=== PATIENT | female | born 1955 | race Caucasian/White ===

== ENCOUNTER 2016-11-14 13:56 | Emergency (ER) | payer OTHER, MEDICARE ==
[~2016-11-14] VITALS: Ht 167.6 cm; Wt 68.0 kg
[~2016-11-14 13:56] MED LIST: ALBI1INJ SQ; ATOR1TAB18 PO; BUPR1TAB29 PO; BUTA1TAB PO; CALC0.25 PO; CYCL1TAB29 PO; DILT300C PO; FENO145T2 PO; HYDR-3583 PO; LEVO125T4 PO; LEVO50TA4 PO; LISI40TA PO; METF1000 PO; METH2.5T PO; MORP1TAB24 PO; PROM25TA5 PO; RANI150C PO
[2016-11-14 13:58] VITALS: BP 175/90; PULSE 86; RESP 17; TEMP 98.2; O2SAT 99
[2016-11-14] MEDS ORDERED: SODIUM CHLOR 0.9% 1000 ML INJ 1,000 ML IV SCH (17:17)
[2016-11-14] MEDS ORDERED: FAMOTIDINE 20 MG/2 ML VIAL IV PUSH ONE (17:30)
[2016-11-14] MEDS ORDERED: SODIUM CHLORIDE 0.9% FLUSH 5 ML FLUSH IVF PRN (17:30)
[2016-11-14] MEDS ORDERED: METOCLOPRAMIDE INJ 10 MG in SODIUM CHLORIDE 0.9% INJ 50 ML IV ONE (17:30)
--- NOTE | 2016-11-14 17:39 | PD ---
HPI Chief Complaint: General Weakness Time Seen by Provider: 17:06 Travel History International Travel<30 days: No Contact w/Intl Traveler<30days: No Traveled to known affect area: No History of Present Illness HPI Patient is a 61-year-old female who comes in complaining of nausea and vomiting for 2 weeks. She says she has not been able to eat or drink anything for the past 2 weeks and has lost 15 pounds. She is currently seeing a vascular doctors for a chronic ulcer to her right foot. She has not gone to see a physician for this vomiting issue. She denies any abdominal pain. She denies any chest pain or shortness of breath. She says she has had fevers at home, but she has not taken her temperature. Recently doctors have changed her pain medication, she is no longer taking morphine, but has a fentanyl patch. She is also currently on antibiotics for her foot. She says her last bowel movement was yesterday and it was normal. PFSH Past Medical History Hx Anticoagulant Therapy: No Arthritis: Yes (RHEUMATOID ARTHRITIS, OSTEOARTHRITIS) Autoimmune Disease: Yes (RA) Blood Disorders: No Anxiety: Yes Depression: Yes Cancer: Yes (COLON, THYROID) Cardiovascular Problems: Yes (HTN, CHOL) High Cholesterol: Yes Chemotherapy: No Congestive Heart Failure: Yes Cerebrovascular Accident: No Diabetes: Yes Patient Takes Glucophage: Yes Diminished Hearing: No Deep Vein Thrombosis: Yes (AND PE PER PT) Endocrine: Yes Fibromyalgia: Yes Gastrointestinal Disorders: Yes Genitourinary: No Hepatitis: No Hiatal Hernia: No Hypertension: Yes Immune Disorder: Yes Implanted Vascular Access Dvce: No Musculoskeletal: Yes ( CERVICAL DDD) Neurologic: No Psychiatric: Yes (ANXIETY) Reproductive: No Respiratory: Yes (COPD) Migraines: Yes Radiation Therapy: Yes Seizures: No Thyroid Disease: Yes Tetanus Vaccination: < 5 Years Menopausal: Yes : 1 Para: 1 Ovarian Cysts: Yes Tubal Ligation: Yes Past Surgical History Abdominal Surgery: Yes (SIGMOID COLECTOMY, LAP PATRICIA) AICD: No Cardiac Surgery: No Cholecystectomy: Yes Ear Surgery: No Endocrine Surgery: Yes (TOTAL THYROIDECTOMY) Eye Surgery: Yes (CLARICE. LASIK) Genitourinary Surgery: No Gynecologic Surgery: Yes (OVARIAN CYSTECTOMY. HYSTERECTOMY/BSO) Hysterectomy: Yes Joint Replacement: No Neurologic Surgery: No Oral Surgery: No Pacemaker: No Thoracic Surgery: No Other Surgery: Yes (THYROIDECTOMY WITH RADIATION, BREAST REDUCTION) Social History Alcohol Use: No Tobacco Use: No (QUIT) Substance Use: No Allergies-Medications (Allergen,Severity, Reaction): Coded Allergies: Adhesives (Verified Allergy, Severe, SKIN BREAKDOWN, 11/14/16) Codeine (Verified Allergy, Severe, RASH, 11/14/16) Latex (Verified Allergy, Severe, Rash, 11/14/16) Protonix (Verified Allergy, Severe, RASH, 11/14/16) Reported Meds & Prescriptions Reported Meds & Active Scripts Active Zofran Odt (Ondansetron Odt) 4 Mg Tab 4 Mg SL Q6HR PRN Reported Lisinopril 40 Mg Tab 40 Mg PO DAILY Metformin (Metformin HCl) 1,000 Mg Tab 1,000 Mg PO BIDPC With meals Hydrocodone-Acetaminophen 10-325 mg Tab 1 Tab PO TID PRN Ljdnyxghnb-Aocnyyrtxybic-Wsnbebxs 50-325-40 Mg Tab 1-2 Tab PO Q4HR PRN Do not exceed 6 tablets/day. Ranitidine (Ranitidine HCl) 150 Mg Cap 150 Mg PO BID Levothyroxine (Levothyroxine Sodium) 50 Mcg Tab 50 Mcg PO QOD Levothyroxine (Levothyroxine Sodium) 125 Mcg Tab 125 Mcg PO QOD Flexeril (Cyclobenzaprine HCl) 10 Mg Tab 10 Mg PO DAILY Calcitriol 0.25 Mcg Cap 0.25 Mcg PO BID Methotrexate 2.5 Mg Tab 20 Mg PO Q7D Diltiazem HCl ER (Diltiazem HCl Coated Beads) 300 Mg Cap 1 Tab PO DAILY Phenergan (Promethazine HCl) 25 Mg Tab 25 Mg PO Q6H PRN Fenofibrate 145 Mg Tab 145 Mg PO DAILY Bupropion HCl ER 12 HR (Bupropion HCl) 150 Mg Tab 150 Mg PO Q12HR Tanzeum 4-Pack Inj (Albiglutide) 30 Mg Pfpen 30 Mg SQ Q7D Atorvastatin (Atorvastatin Calcium) 80 Mg Tab 80 Mg PO HS Review of Systems Except as stated in HPI: all other systems reviewed are Neg General / Constitutional: No: Fever, Chills Eyes: No: Blurred Vision HENT: No: Headaches Cardiovascular: No: Chest Pain or Discomfort Respiratory: No: Shortness of Breath Gastrointestinal: Positive: Nausea, Vomiting, No: Diarrhea, Abdominal Pain, Constipation Genitourinary: No: Dysuria, Discharge Skin: No Rash, No Change in Pigmentation Neurologic: Positive: Weakness, No: Dizziness Physical Exam Narrative GENERAL: Awake and alert, in no acute distress. SKIN: Warm and dry. right foot with chronic ulcer, black in color, no active drainage or signs of cellulitis. HEAD: Atraumatic. Normocephalic. EYES: Pupils equal and round. No scleral icterus. Extraocular movements intact. ENT: Mucous membranes pink and moist. NECK: Trachea midline. No JVD. CARDIOVASCULAR: Regular rate and rhythm. No murmur appreciated. RESPIRATORY: No accessory muscle use. Clear to auscultation. Breath sounds equal bilaterally. GASTROINTESTINAL: Abdomen soft, non-tender, nondistended. No CVA tenderness. MUSCULOSKELETAL: No obvious deformities. No clubbing. No cyanosis. No edema. NEUROLOGICAL: Awake and alert. No obvious cranial nerve deficits. Motor grossly within normal limits. Normal speech. PSYCHIATRIC: Appropriate mood and affect; insight and judgment normal. Data Data Last Documented VS Vital Signs Date Time Temp Pulse Resp B/P Pulse Ox O2 Delivery O2 Flow Rate FiO2 11/14/16 21:59 78 18 170/78 97 11/14/16 18:00 98.1 Room Air Orders Basic Metabolic Panel (Bmp) (11/14/16 17:17) Complete Blood Count With Diff (11/14/16:17) Lipase (11/14/16 17:17) Urinalysis - C+S If Indicated (11/14/16 17:17) Ua Includes Microscopic (11/14/16 17:17) Ct Abd/Pel W Iv Contrast(Rout) (11/14/16 17:17) Iv Access Insert/Monitor (11/14/16 17:17) Ecg Monitoring (11/14/16 17:17) Oximetry (11/14/16 17:17) Sodium Chlor 0.9% 1000 Ml Inj (Ns 1000 M (11/14/16 17:17) Sodium Chloride 0.9% Flush (Ns Flush) (11/14/16 17:30) Electrocardiogram (11/14/16 17:17) Famotidine Inj (Pepcid Inj) (11/14/16 17:30) Hepatic Functional Panel (11/14/16 17:17) Metoclopramide Inj (Reglan Inj) (11/14/16 17:30) Iodixanol 320 Inj (Rad Ct) (Visipaque 32 (11/14/16 19:00) Sodium Chlor 0.9% 1000 Ml Inj (Ns 1000 M (11/14/16 20:00) Labs Laboratory Tests Test 11/14/16 11/14/16 17:30 19:55 White Blood Count 7.0 TH/MM3 Red Blood Count 4.07 MIL/MM3 Hemoglobin 12.4 GM/DL Hematocrit 36.9 % Mean Corpuscular Volume 90.7 FL Mean Corpuscular Hemoglobin 30.4 PG Mean Corpuscular Hemoglobin 33.5 % Concent Red Cell Distribution Width 15.3 % Platelet Count 402 TH/MM3 Mean Platelet Volume 8.1 FL Neutrophils (%) (Auto) 65.5 % Lymphocytes (%) (Auto) 22.3 % Monocytes (%) (Auto) 10.4 % Eosinophils (%) (Auto) 0.6 % Basophils (%) (Auto) 1.2 % Neutrophils # (Auto) 4.6 TH/MM3 Lymphocytes # (Auto) 1.6 TH/MM3 Monocytes # (Auto) 0.7 TH/MM3 Eosinophils # (Auto) 0.0 TH/MM3 Basophils # (Auto) 0.1 TH/MM3 CBC Comment DIFF FINAL Differential Comment Sodium Level 141 MEQ/L Potassium Level 3.9 MEQ/L Chloride Level 106 MEQ/L Carbon Dioxide Level 19.8 MEQ/L Anion Gap 15 MEQ/L Blood Urea Nitrogen 22 MG/DL Creatinine 1.36 MG/DL Estimat Glomerular Filtration 40 ML/MIN Rate Random Glucose 93 MG/DL Calcium Level 8.5 MG/DL Total Bilirubin 0.5 MG/DL Direct Bilirubin 0.2 MG/DL Indirect Bilirubin 0.3 MG/DL Aspartate Amino Transf 23 U/L (AST/SGOT) Alanine Aminotransferase 25 U/L (ALT/SGPT) Alkaline Phosphatase 26 U/L Total Protein 6.9 GM/DL Albumin 3.7 GM/DL Lipase 262 U/L Urine Color YELLOW Urine Turbidity CLEAR Urine pH 6.0 Urine Specific [place] GREATER THAN 1.050 Urine Protein 30 mg/dL Urine Glucose (UA) NEG mg/dL Urine Ketones 10 mg/dL Urine Occult Blood NEG Urine Nitrite NEG Urine Bilirubin NEG Urine Urobilinogen LESS THAN 2.0 MG/DL Urine Leukocyte Esterase TRACE Urine WBC 2 /hpf Urine Squamous Epithelial 3 /hpf Cells Microscopic Urinalysis Comment CULT NOT INDICATED MDM Medical Decision Making Medical Screen Exam Complete: Yes Emergency Medical Condition: Yes Medical Record Reviewed: Yes Interpretation(s) ECG shows sinus rhythm at 84, no ST elevation or depression, normal intervals. Differential Diagnosis Gastroparesis versus gastritis versus gastroenteritis versus obstruction versus colitis Narrative Course Patient is a 61-year-old female who comes in complaining of nausea and vomiting for 2 weeks. She says she has not been able to keep anything down. Exam shows abdomen to be soft and nontender. She has a chronic wound to her right foot that is being managed by vascular surgery. Labs sent show evidence of dehydration with a creatinine of 1.36. Patient given 2 L of IV fluids. Given Reglan as well as famotidine. Patient reports feeling much better. She is able to drink water without vomiting. She says she would like to go home. We will discharge home with prescription for by mouth Reglan. Patient is advised follow-up with her primary Doctor doctor. Advised to continue treatment with the vascular surgeon. Advised to return to the ED as needed for any worsening symptoms. Patient is comfortable with this plan at this time. Diagnosis Primary Impression: Nausea & vomiting Qualified Code: R11.2 - Non-intractable vomiting with nausea, unspecified vomiting type Patient Instructions: Acute Nausea and Vomiting (ED), General Instructions Additional Instructions: Follow up with your primary doctor. Take Zofran as needed for nausea/vomiting. Drink plenty of fluids. Force yourself to continue to take small sips of fluids throughout the day even if you are feeling nauseous. Return to the ED if your symptoms worsen. Scripts Ondansetron Odt (Zofran Odt)4 Mg Tab4 Mg SL Q6HR PRN (Nausea/Vomiting) #15 TAB Ref 0 Prov:Aliya Akhtar MD 11/14/16 Disposition: DISCHARGE HOME Condition: Stable Aliya Akhtar MD Nov 14, 2016 17:39
[2016-11-14 17:41] VITALS: RESP 20; O2SAT 98
[2016-11-14 17:46] LABS: AUTOMATED NEUTROPHIL # 4.6 TH/MM3 (1.8-7.7); BASOPHIL # 0.1 TH/MM3 (0-0.2); BASOPHIL % 1.2 % (0.0-2.0); EOSINOPHIL % 0.6 % (0.0-4.0); HEMATOCRIT 36.9 % (35.0-46.0); HEMO FLAGS DIFF FINAL; LYMPH % 22.3 % (9.0-44.0); LYMPHOCYTE # 1.6 TH/MM3 (1.0-4.8); MEAN CELL VOLUME 90.7 FL (80.0-100.0); MEAN CORPUSCULAR HEMOGLOBIN 30.4 PG (27.0-34.0); MEAN CORPUSCULAR HGB CONC 33.5 % (32.0-36.0); MONO % 10.4 % (0.0-8.0); NEUT % 65.5 % (16.0-70.0); PLATELET COUNT 402 TH/MM3 (150-450); RED BLOOD COUNT 4.07 MIL/MM3 (4.00-5.30); RED CELL DISTRIBUTION WIDTH 15.3 % (11.6-17.2)
[2016-11-14 18:00] VITALS: BP 147/70; PULSE 81; RESP 18; TEMP 98.1; O2SAT 98
[2016-11-14 18:04] LABS: BICARBONATE 19.8 MEQ/L (21.0-32.0); POTASSIUM 3.9 MEQ/L (3.5-5.1)
[2016-11-14 18:07] LABS: INDIRECT BILIRUBIN 0.3 MG/DL (0.0-0.8); TOTAL BILIRUBIN ADULT 0.5 MG/DL (0.2-1.0)
[2016-11-14] MEDS ORDERED: IODIXANOL 320 MG/ML 10 ML VIAL (for Rad CT) IV ONE (19:00)
--- NOTE | 2016-11-14 19:42 | RADRPT ---
EXAM DATE/TIME: 11/14/2016 18:54 [facility] COMPARISON: No previous studies available for comparison. INDICATIONS : Diffuse abdominal pain with nausea and vomiting for 2 weeks. IV CONTRAST: 50 cc Visipaque (iodixanol) IV ORAL CONTRAST: No oral contrast ingested. RADIATION DOSE: 9.96 CTDIvol (mGy) MEDICAL HISTORY : Hypertension. Deep venous thrombosis. Diabetes mellitus type 2.Colon and thyroid cancer SURGICAL HISTORY : Cholecystectomy. Tubal ligation.Hysterectomy.Colectomy; thyroidectomy. ENCOUNTER: Initial ACUITY: 2 weeks PAIN SCALE: 5/10 LOCATION: Diffuse abdomen/pelvis TECHNIQUE: Volumetric scanning of the abdomen and pelvis was performed. Using automated exposure control and ad justment of the mA and/or kV according to patient size, radiation dose was kept as low as reasonably achievable to obtain optimal diagnostic quality images. FINDINGS: Linear scarring lung bases. Stable low attenuation lesion near dome of liver compared with January 2016 , probably cyst or meningioma. Spleen, adrenals, kidneys and pancreas demonstrate no acute findings. Previous cholecystectomy. No bowel obstruction. No free air or free fluid. No adenopathy. No acute bony abnormalities. CONCLUSION: 1. No acute findings. Specifically no bowel obstruction. No free air or free fluid. Mild fatty liver. Cholecystectomy. Daniel Roca MD on November 14, 2016 at 19:34 Board Certified Radiologist. This report was verified electronically.
[2016-11-14] MEDS ORDERED: SODIUM CHLOR 0.9% 1000 ML INJ 1,000 ML IV ONE (20:00)
[2016-11-14 20:30] LABS: BLOOD, URINE NEG (NEG); COMMENT (UR) CULT NOT INDICATED; CULTURE IF INDICATED CULT NOT INDICATED; GLUCOSE,URINE NEG (NEG); KETONE, URINE 10 mg/dL (NEG); NITRITE,URINE NEG (NEG); SQUAMOUS EPITHELIAL CELL URINE 3 /hpf (0-5); URINE COLOR YELLOW (YELLW/STRAW)
[2016-11-14] MEDS ORDERED: ZOFR4TAB3 SL (21:14)
[2016-11-14 21:59] VITALS: BP 170/78
--- NOTE | 2016-11-15 13:10 | EKG ---
Date Performed: 11/14/2016 Time Performed: 17:44:11 PTAGE: 61 years EKG: Sinus rhythm POSSIBLE ANTERIOR MYOCARDIAL INFARCTION BORDERLINE ECG Compared to prior tracing no significant martinez marycruz PREVIOUS TRACING : 01/28/2016 13.30 DOCTOR: Oswaldo Lamas Interpretating Date/Time 11/15/2016 13:09:21
== END 2016-11-14 22:02 | disposition home or self-care (01) ==
LOC: NEPA 13:56
DX: R11.2 Nausea with vomiting, unspecified (principal); E86.0 Dehydration; M06.9 Rheumatoid arthritis, unspecified; I10 Essential (primary) hypertension; E78.00 Pure hypercholesterolemia, unspecified; I50.9 Heart failure, unspecified; E11.9 Type 2 diabetes mellitus without complications; L97.519 Non-pressure chronic ulcer of other part of right foot with unspecified severity; J44.9 Chronic obstructive pulmonary disease, unspecified; Z79.4 Long term (current) use of insulin
CPT/HCPCS: 74177; 80048; 80076; 81001; 83690; 85025; 93005; 96361; 96365; 96375; 99284; J2765; J7030; Q9967

== ENCOUNTER 2016-11-18 10:28 | Day surgery (SDC) | payer OTHER, MEDICARE ==
[~2016-11-18] VITALS: Ht 167.6 cm; Wt 72.5 kg
[~2016-11-18 10:28] MED LIST changes: -MORP1TAB24 PO; +ZOFR4TAB3 SL
[2016-11-18] MEDS ORDERED: SODIUM BICARBONATE 100 MEQ in D5W 1000 ML IV SCH (11:15)
[2016-11-18 11:37] LABS: AUTOMATED NEUTROPHIL # 2.6 TH/MM3 (1.8-7.7); BASOPHIL # 0.1 TH/MM3 (0-0.2); BASOPHIL % 2.7 % (0.0-2.0); EOSINOPHIL # 0.2 TH/MM3 (0-0.4); EOSINOPHIL % 3.6 % (0.0-4.0); HEMATOCRIT 33.7 % (35.0-46.0); HEMO FLAGS DIFF FINAL; LYMPH % 33.5 % (9.0-44.0); LYMPHOCYTE # 1.8 TH/MM3 (1.0-4.8); MEAN CELL VOLUME 90.9 FL (80.0-100.0); MEAN CORPUSCULAR HEMOGLOBIN 29.8 PG (27.0-34.0); MEAN CORPUSCULAR HGB CONC 32.7 % (32.0-36.0); MONO % 10.8 % (0.0-8.0); NEUT % 49.4 % (16.0-70.0); PLATELET COUNT 351 TH/MM3 (150-450); RED BLOOD COUNT 3.71 MIL/MM3 (4.00-5.30); RED CELL DISTRIBUTION WIDTH 15.6 % (11.6-17.2); WHITE BLOOD COUNT 5.3 TH/MM3 (4.0-11.0)
[2016-11-18 11:43] LABS: PROTHROMBIN TIME - PATIENT 11.5 SEC (9.8-11.6)
[2016-11-18] MEDS ORDERED: VITA10004 PO (11:45)
[2016-11-18] MEDS ORDERED: XANA1TAB2 PO (11:45)
[2016-11-18] MEDS ORDERED: AMBI10TA PO (11:45)
[2016-11-18] MEDS ORDERED: CIPR100T2 PO (11:45)
[2016-11-18] MEDS ORDERED: ZOLO25TA PO (11:45)
[2016-11-18] MEDS ORDERED: ERGO1CAP10 PO (11:45)
[2016-11-18] MEDS ORDERED: FENT50DI T-DERMAL (11:45)
[2016-11-18] MEDS ORDERED: VITA100021 SL (11:45)
[2016-11-18 11:47] VITALS: BP 153/77; PULSE 69; RESP 16; TEMP 97.9; O2SAT 97
[2016-11-18 11:50] LABS: BICARBONATE 23.4 MEQ/L (21.0-32.0)
[2016-11-18 12:12] LABS: CALCIUM-PROTEIN CORRECTED 7.9 MG/DL (8.5-10.1)
[2016-11-18] MEDS ORDERED: HEPARIN-NS/PF INJ 500 ML ONE (12:18)
[2016-11-18] MEDS ORDERED: MIDAZOLAM HCL 5 MG/5 ML VIAL ONE (12:19)
--- NOTE | 2016-11-18 12:47 | HHI.PR ---
Immediate Post Op Note Procedure Date: Nov 18, 2016 Pre Op Diagnosis: R LE wound, PAD Post Op Diagnosis: R LE wound Surgeon: Luisito Sheets [employer] Representative(s): none Procedure: Aortogram w/ R LE angiogram Findings: patent aorto-iliac artery patent fem-pop artery 3 vessel runoff with PT dominant to foot Complications: none 4F sheath (L CYLINDER DIE MACHINE OPERATOR) removed in OR Specimen(s) removed: none Estimated blood loss: trace Anesthesia: General Drains: None Patient to: PACU Date/Time of Procedure: SEE SURGICAL CARE RECORD Luisito Sheets MD Nov 18, 2016 12:47
[2016-11-18] MEDS ORDERED: IOHEXOL 350 MG/ML 50 ML BTL (for Cath Lab) OTHER ONE (14:30)
--- NOTE | 2016-11-19 16:58 | MP ---
cc: LUISITO SHEETS MD DATE OF SURGERY: 11/18/2016 PREOPERATIVE DIAGNOSIS Right lower extremity peripheral arterial occlusive disease and tissue loss. POSTOPERATIVE DIAGNOSIS Right lower extremity wound, normal perfusion. PROCEDURE Aortogram with right lower extremity angiogram. ATTENDING SURGEON Luisito Sheets ANESTHESIA Local with sedation. INDICATIONS Ms. Munroe is a 61-year-old female who has right lower extremity tissue loss and that is a punctate wound on the top of her right foot. I do not feel any pedal pulses and she is taken to the operating room for angiographic evaluation and treatment. DESCRIPTION OF PROCEDURE Informed consent was obtained from the patient. She was taken to the operating room and placed supine on the operating table. An appropriate timeout was taken to ensure the patient's identity, operative site and planned procedure. The administration of antibiotics was not necessary as this was a clean procedure without planned implantation of any foreign object. Everyone in the room agreed with the timeout and we proceeded. Her bilateral groins were prepped and draped. The left groin was anesthetized with 1% lidocaine. A 21-gauge micropuncture needle was used to access the left common femoral artery. This was exchanged using Seldinger technique for a micropuncture sheath through which a 0.035 Glidewire was introduced. The micropuncture sheath was exchanged for a 4-Danish sheath and a VCF catheter was placed over the wire into the sheath and aortogram and pelvic arteriograms obtained. The Glidewire was reintroduced and navigated down to the right common femoral artery. The VCF catheter was advanced over this and the right lower extremity arteriogram was obtained. The wire, catheter and sheath were removed and pressure was held for hemostasis. There were no complications. I was present and scrubbed for the entire procedure. INTERPRETATION OF IMAGES The patient has patent renal arteries, patent infrarenal aorta, common iliac arteries, hypogastric arteries and external iliac arteries bilaterally. The right common femoral artery and profunda are patent. The SFA is patent. The popliteal artery is patent. There is three-vessel runoff with the posterior tibial artery being the dominant runoff to the level of the foot. MD MIKAL TejadaF/JAME /1:34 PM /4:47 PM
== END 2016-11-18 19:13 | disposition home or self-care (01) ==
LOC: HDOC 10:28 → HDIC 10:29 → HDOC 19:13
PROVIDERS: ATTEND Surgery
DX: S91.301A Unspecified open wound, right foot, initial encounter (principal); I73.9 Peripheral vascular disease, unspecified
CPT/HCPCS: 36200; 36245; 75625; 75710; 80048; 84155; 85025; 85610; C1769; C1893; J1644; J2250; J3010; J7070; Q9967

== ENCOUNTER 2016-11-26 11:34 | Inpatient (IN) | payer OTHER, MEDICARE ==
[~2016-11-26] VITALS: Ht 167.6 cm; Wt 76.9 kg
[~2016-11-26 11:34] MED LIST changes: +AMBI10TA PO; -BUPR1TAB29 PO; +CIPR100T2 PO; +ERGO1CAP10 PO; +FENT50DI T-DERMAL; -LEVO50TA4 PO; -PROM25TA5 PO; +VITA100021 SL; +XANA1TAB2 PO; +ZOLO25TA PO
[2016-11-26 11:37] VITALS: BP 136/64; PULSE 82; RESP 20; TEMP 97.7; O2SAT 97
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
--- NOTE | 2016-11-26 12:44 | RADRPT ---
EXAM DATE/TIME: 11/26/2016 11:59 [facility] COMPARISON: CHEST PA & LAT, January 31, 2016, 7:49. INDICATIONS : Evaluate for pneumothorax, pneumonia or communicable disease. Pre-op, right foot surgery. MEDICAL HISTORY : Hypertension. Diabetes mellitus type II. Carcinoma, colon. SURGICAL HISTORY : None. ENCOUNTER: Initial ACUITY: 1 day PAIN SCORE: 0/10 LOCATION: Bilateral chest FINDINGS: A single view of the chest demonstrates the lungs to be symmetrically aerated without evidence of mas s, infiltrate or effusion. The cardiomediastinal contours are unremarkable. Osseous structures are intact with hypertrophic spurring primarily right-sided mid and lower thoracic spine.. CONCLUSION: No acute disease. Mykel Rowe MD on November 26, 2016 at 12:42 Board Certified Radiologist. This report was verified electronically.
[2016-11-26 12:47] LABS: AUTOMATED NEUTROPHIL # 3.8 TH/MM3 (1.8-7.7); BASOPHIL # 0.1 TH/MM3 (0-0.2); BASOPHIL % 1.5 % (0.0-2.0); EOSINOPHIL # 0.2 TH/MM3 (0-0.4); EOSINOPHIL % 2.9 % (0.0-4.0); HEMO FLAGS DIFF FINAL; LYMPH % 28.6 % (9.0-44.0); MEAN CELL VOLUME 91.6 FL (80.0-100.0); MEAN CORPUSCULAR HEMOGLOBIN 29.9 PG (27.0-34.0); MEAN CORPUSCULAR HGB CONC 32.6 % (32.0-36.0); MONO % 11.1 % (0.0-8.0); NEUT % 55.9 % (16.0-70.0); PLATELET COUNT 398 TH/MM3 (150-450); RED BLOOD COUNT 3.93 MIL/MM3 (4.00-5.30); RED CELL DISTRIBUTION WIDTH 16.2 % (11.6-17.2); WHITE BLOOD COUNT 6.9 TH/MM3 (4.0-11.0)
[2016-11-26 12:57] LABS: APTT (PATIENT) 23.6 SEC (24.3-30.1); PROTHROMBIN TIME - PATIENT 11.4 SEC (9.8-11.6)
[2016-11-26 13:09] LABS: BICARBONATE 24.9 MEQ/L (21.0-32.0)
[2016-11-26] MEDS ORDERED: VANCOMYCIN INJ 1,150 MG in SODIUM CHLOR 0.9% 250 ML INJ 250 ML IV ONE (13:45)
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
--- NOTE | 2016-11-26 14:22 | PD ---
Data Data Last Documented VS Vital Signs Date Time Temp Pulse Resp B/P Pulse Ox O2 Delivery O2 Flow Rate FiO2 11/26/16 12:28 80 18 97 Room Air 11/26/16 11:37 97.7 136/64 Orders Complete Blood Count With Diff (11/26/16 11:59) Basic Metabolic Panel (Bmp) (11/26/16 11:59) Coag Profile (11/26/16 11:59) Electrocardiogram (11/26/16 ) Chest, Single Ap (11/26/16 ) Wound Culture And Gram Stain (11/26/16 12:20) Vancomycin Inj (Vancomycin Inj) (11/26/16 13:45) Admit Order (Ed Use Only) (11/26/16 14:09) Labs Laboratory Tests Test 11/26/16 12:20 White Blood Count 6.9 TH/MM3 Red Blood Count 3.93 MIL/MM3 Hemoglobin 11.7 GM/DL Hematocrit 36.0 % Mean Corpuscular Volume 91.6 FL Mean Corpuscular Hemoglobin 29.9 PG Mean Corpuscular Hemoglobin 32.6 % Concent Red Cell Distribution Width 16.2 % Platelet Count 398 TH/MM3 Mean Platelet Volume 8.0 FL Neutrophils (%) (Auto) 55.9 % Lymphocytes (%) (Auto) 28.6 % Monocytes (%) (Auto) 11.1 % Eosinophils (%) (Auto) 2.9 % Basophils (%) (Auto) 1.5 % Neutrophils # (Auto) 3.8 TH/MM3 Lymphocytes # (Auto) 2.0 TH/MM3 Monocytes # (Auto) 0.8 TH/MM3 Eosinophils # (Auto) 0.2 TH/MM3 Basophils # (Auto) 0.1 TH/MM3 CBC Comment DIFF FINAL Differential Comment Prothrombin Time 11.4 SEC Prothromb Time International 1.0 RATIO Ratio Activated Partial 23.6 SEC Thromboplast Time Sodium Level 142 MEQ/L Potassium Level 4.0 MEQ/L Chloride Level 109 MEQ/L Carbon Dioxide Level 24.9 MEQ/L Anion Gap 8 MEQ/L Blood Urea Nitrogen 15 MG/DL Creatinine 1.53 MG/DL Estimat Glomerular Filtration 35 ML/MIN Rate Random Glucose 90 MG/DL Calcium Level 8.0 MG/DL MDM Supervised Visit with CALLUM: Yes Narrative Course The history, exam, and medical decision-making in the associated midlevel provider note were completed with my assistance. I reviewed and agree with the findings presented. I attest that I had a [id number] encounter with the patient on the same day, and personally performed and documented my assessment and findings in the medical record. *My assessment and Findings: This is a 61-year-old female who presents to the emergency department with a diabetic foot ulcer on her right foot, followed by Dr. Wisdom who was sent in due to concern for osteomyelitis on MRI. Patient has grown MRSA from wound cultures in the past. She was given a dose of vancomycin. She is nontoxic appearing. She will be admitted for surgical intervention tomorrow. Physician Communication Physician Communication Discussed with Dr. Cardona Diagnosis Primary Impression: Diabetic foot infection Admitting Information Admitting Physician Requests: Admit Condition: Stable Naheed Castillo MD Nov 26, 2016 14:22
[2016-11-26] MEDS ORDERED: Vancomycin Consult Pharmacy 1 EA OTHER SCH (14:30)
[2016-11-26] MEDS ORDERED: ACETAMINOPHEN/HYDROcodone 325 MG/5 MG TAB PO PRN (14:30)
[2016-11-26] MEDS ORDERED: ONDANSETRON HCL 4 MG/2 ML VIAL IV PUSH PRN (14:30)
[2016-11-26] MEDS ORDERED: SODIUM CHLOR 0.9% 1000 ML INJ 1,000 ML IV SCH (14:45)
[2016-11-26] MEDS ORDERED: DEXTROSE 50% IN WATER 50 ML VIAL(D50) IV PUSH PRN (15:00)
[2016-11-26] MEDS ORDERED: GLUCAGON 1 MG/ML VIAL OTHER PRN (15:00)
[2016-11-26] MEDS: INSULIN ASPART SUPPLEMENTAL SCALE SQ SCH ×2 (15:52→21:00)
[2016-11-26] MEDS ORDERED: ERGOCALCIFEROL (VIT D2) 50,000 UNIT CAP PO SCH (16:00)
[2016-11-26] MEDS ORDERED: fentaNYL 50 MCG/HR PATCH T-DERMAL SCH (16:00)
[2016-11-26 16:22] VITALS: BP 126/75; PULSE 84; RESP 18; O2SAT 96
[2016-11-26 19:03] VITALS: BP 122/62; PULSE 82; RESP 18; O2SAT 96
[2016-11-26] MEDS ORDERED: DEXT 5%-NACL 0.9% 1000 ML INJ 1,000 ML IV ONE (19:15)
[2016-11-26 19:40] VITALS: BP 114/64; PULSE 71; RESP 16; TEMP 98.4; O2SAT 96
[2016-11-26] MEDS: ATORVASTATIN 80 MG TAB PO SCH (21:16)
[2016-11-26] MEDS: FAMOTIDINE 20 MG TAB PO SCH (21:16)
[2016-11-26] MEDS: CALCITRIOL 0.25 MCG CAP PO SCH (21:16)
[2016-11-26] MEDS: ACETAMINOPHEN/HYDROcodone 325 MG/5 MG TAB PO PRN (21:17)
[2016-11-26] MEDS: ALPRAZolam 1 MG TAB PO PRN (21:38)
--- NOTE | 2016-11-26 23:14 | EKG ---
Date Performed: 11/26/2016 Time Performed: 12:42:53 PTAGE: 61 years EKG: Sinus rhythm NONSPECIFIC T-WAVE ABNORMALITY BORDERLINE ECG PREVIOUS TRACING : 11/14/2016 17.44 Compared to prior tracing no significant change DOCTOR: Dinh Olivares Interpretating Date/Time 11/26/2016 23:13:29
[2016-11-26 23:35] VITALS: BP 163/76; PULSE 69; RESP 16; TEMP 98; O2SAT 96
[2016-11-27] MEDS: ZOLPIDEM TARTRATE 10 MG TAB PO PRN ×2 (00:09→20:59)
[2016-11-27 05:13] VITALS: BP 168/81; PULSE 74; RESP 16; TEMP 97.4; O2SAT 100
[2016-11-27] MEDS: ACETAMINOPHEN/HYDROcodone 325 MG/5 MG TAB PO PRN ×4 (05:44→20:10)
[2016-11-27] MEDS: LEVOTHYROXINE SODIUM 125 MCG TAB PO SCH (05:44)
[2016-11-27] MEDS: INSULIN ASPART SUPPLEMENTAL SCALE SQ SCH ×4 (05:44→20:52)
[2016-11-27 08:00] VITALS: BP 167/82; PULSE 70; RESP 20; TEMP 97.9; O2SAT 98
[2016-11-27] MEDS ORDERED: VANCOMYCIN INJ 1,500 MG in SODIUM CHLORID 0.9% 500 ML INJ 500 ML IV SCH (08:00)
[2016-11-27] MEDS: FENOFIBRATE 145 MG TAB PO SCH (08:30)
[2016-11-27] MEDS: CALCITRIOL 0.25 MCG CAP PO SCH ×2 (08:31→20:54)
[2016-11-27] MEDS: DILTIAZEM-CD 300 MG CAP ER PO SCH (08:31)
[2016-11-27] MEDS: ALPRAZolam 1 MG TAB PO PRN ×2 (08:31→18:36)
[2016-11-27] MEDS: LISINOPRIL 20 MG TAB PO SCH (08:31)
[2016-11-27] MEDS: FAMOTIDINE 20 MG TAB PO SCH ×2 (08:31→20:55)
[2016-11-27] MEDS: CYCLOBENZAPRINE HCL 10 MG TAB PO SCH (08:31)
[2016-11-27] MEDS: SERTRALINE HCL 50 MG TAB PO SCH (08:36)
[2016-11-27 08:53] LABS: POTASSIUM 3.6 MEQ/L (3.5-5.1)
[2016-11-27] MEDS: REMOVE OLD DURAGESIC (FENTANYL) PATCH TD SCH (09:00)
--- NOTE | 2016-11-27 10:50 | HHI.PR ---
Subjective Remarks doing ok . no complaints Objective Vitals heart reg lung cta abd s/nt ext right dorsal foot ulceration. smaller ulceration on great toe/lat ankle Vital Signs Date Time Temp Pulse Resp B/P Pulse Ox O2 Delivery O2 Flow Rate FiO2 11/27/16 05:13 97.4 74 16 168/81 100 11/27/16 05:13 Room Air 11/26/16 23:35 Room Air 11/26/16 23:35 98.0 69 16 163/76 96 11/26/16 19:40 98.4 71 16 114/64 96 11/26/16 19:40 Room Air 11/26/16 19:03 82 18 122/62 96 Room Air 11/26/16 17:51 16 11/26/16 16:22 84 18 126/75 96 Room Air 11/26/16 12:28 80 18 97 Room Air 11/26/16 11:37 97.7 82 20 136/64 97 Room Air 11/26/16 11/26/16 11/27/16 15:00 23:00 07:00 Intake Total 977 ml 814 ml Output Total 250 ml 700 ml Balance 727 ml 114 ml Intake Oral 450 ml 240 ml IV Total 527 ml 574 ml Output Urine Total 250 ml 700 ml # Bowel Movements 0 0 Result Diagram: 11/26/16 1220 11/27/16 0658 A/P Problem List: (1) Diabetic foot ulcer Status: Acute Plan: right dorsal foot ulceration with recent necrosis and mrsa wound cx on 11/11 also recent mri foot suggesting bone involvement and 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 cont iv abx pain control consulted podiatry for planned surgery today consult ID. ivf and npo ssi. (2) DM (diabetes mellitus) Status: Chronic Plan: ssi (3) Hypothyroidism following radioiodine therapy Status: Chronic Plan: home meds (4) Asthma Status: Chronic Plan: home meds (5) Rheumatoid arthritis Status: Chronic Plan: home meds Washington Cardona MD Nov 27, 2016 10:50
[2016-11-27] MEDS ORDERED: DEXT 5%-NACL 0.9% 1000 ML INJ 1,000 ML IV ONE (11:00)
[2016-11-27] MEDS ORDERED: BUPIVACAINE HCL PF 0.5% 30 ML VIAL ONE (11:30)
[2016-11-27] MEDS ORDERED: LIDOCAINE HCL 2% 50 ML VIAL ONE (11:30)
[2016-11-27] MEDS ORDERED: MIDAZOLAM HCL 2 MG/2 ML VIAL ONE (11:35)
[2016-11-27] MEDS ORDERED: PROPOFOL 200 MG/20 ML AMP IV ONE (12:00)
[2016-11-27] MEDS ORDERED: ONDANSETRON HCL 4 MG/2 ML VIAL IV PUSH ONE (12:00)
[2016-11-27] MEDS ORDERED: DO NOT ADM ANY ANTICOAGULANT DRUGS XX PRN (12:30)
[2016-11-27] MEDS ORDERED: *morphine SULFATE 8 MG/ML PERIprocedure ONLY ONE ×2 (12:40→12:55)
[2016-11-27] MEDS ORDERED: NEOMYCIN/POLYMYXIN 1 ML G.U. IRRIGANT IR ONE (12:43)
[2016-11-27] MEDS: fentaNYL 50 MCG/HR PATCH T-DERMAL SCH (15:36)
[2016-11-27 16:00] VITALS: BP 107/55; PULSE 69; RESP 18; TEMP 98.6; O2SAT 96
--- NOTE | 2016-11-27 19:04 | HHI.PR ---
Dr Mendez Immediate Post Op Note Procedure Date: Nov 27, 2016 Pre Op Diagnosis: (1) Diabetic foot infection Post Op Diagnosis: (1) Diabetic foot ulcer Surgeon: Sara Mendez Job Placement Specialist(s): None Procedure: 1) Right foot Incision and Drainage 2) Right 3rd metatarsal bone biopsy 3) Right foot application of wound VAC. Findings: Appropriate bleeding with wound debridement. Complications: None Specimen(s) removed: 1) Right 3rd metatarsal bone biopsy. Estimated blood loss: Less than 5 cc Anesthesia: General Drains: None Tourniquet time (min at mmHg) Right ankle at 250 mmHg for 17 minutes. Patient to: PACU Patient Condition: Good Implant/Devices: Other (Wound VAC) Date/Time of Procedure: SEE SURGICAL CARE RECORD Sara Mendez DPM Nov 27, 2016 19:04
--- NOTE | 2016-11-27 19:38 | MP ---
cc: SARA MENDEZ DPM DATE OF SURGERY: 11/27/2016. PREOPERATIVE DIAGNOSIS: Right foot chronic infection. POSTOPERATIVE DIAGNOSIS: Right foot chronic infection. OPERATIVE PROCEDURE PERFORMED: 1. Right foot incision and drainage. 2. Right foot bone biopsy third metatarsal. 3. Right foot application of wound VAC. SURGEON: Sara Mendez DPM. ANESTHESIOLOGIST: Dr. Rojas. ANESTHESIA: General HEMOSTASIS: Right ankle tourniquet at 250 mmHg for 17 minutes. ESTIMATED BLOOD LOSS: Less than 5 cc. MATERIALS: Wound VAC. INJECTABLES: Postoperatively 10 cc of 0.5% Marcaine plain. BRIEF HISTORY: The patient is a 61-year-old female with a chronic right foot wound who had undergone workup as an outpatient including vascular and MRI imaging. The wound continued to worsen and then was admitted for additional surgical intervention. Risks, benefits, pros and cons were discussed. She freely consented to surgical intervention. No guarantees were given or implied. All questions were answered. DESCRIPTION OF THE PROCEDURE IN DETAIL: The patient was brought into operating room and placed on the operating room table in the supine position. General anesthesia was administered. A time-out was called and the correct patient identified, site identified, right third and fourth ray block was carried out using 20 cc of a 1:1 mixture of 2% lidocaine plain along with 0.5% Marcaine plain. The right foot was prepped, scrubbed and draped in the usual sterile aseptic manner. Attention was then directed to the right foot where excisional debridement of necrotic nonviable tissue was carried out with a 15 blade on the right dorsal foot. There was no purulent matter after debridement of necrotic tissue. The encompassing wound measured 3.5 x 3.0 cm. There was a depth of 0.3 cm. The extensor tendons of the third and fourth needed to be debrided due to the necrotic nonviable state and MRI findings of infection and cellulitis. After debriding nonviable necrotic tissue, the right third MP joint was exposed. There was no purulent drainage within the joint. A bone biopsy using a Jamshidi needle was taken of the right third metatarsal and part of it was sent for pathology and the other half was sent for culture. The incision was copiously irrigated and pulse lavaged with 3 liters of normal saline impregnated with . The wound was then dressed using a wound VAC to the right forefoot. The wound was covered, secured wound VAC demonstrated good suction at 125 mmHg constant on the right foot. The tourniquet was deflated after 17 minutes. The tourniquet was only inflated after sharp debridement of the wound. Healthy bleeding was noted within the surgical site. Bleeders were Bovied. The patient tolerated procedure. After completion, she will be transferred to the post-anesthesia care unit for a brief period of postoperative monitoring after which she will be transferred to the floor. She will be followed up appropriately while in-house. Sara Mendez DPM SR/OLINDA /7:09 PM /7:22 PM
[2016-11-27 20:00] VITALS: BP 118/55; PULSE 73; RESP 18; TEMP 98.2; O2SAT 96
[2016-11-27] MEDS: ATORVASTATIN 80 MG TAB PO SCH (20:54)
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
[2016-11-27 23:52] VITALS: BP 117/60; PULSE 76; RESP 18; TEMP 98.5; O2SAT 96
[2016-11-28] MEDS: ACETAMINOPHEN/HYDROcodone 325 MG/5 MG TAB PO PRN ×3 (00:18→08:54)
[2016-11-28] MEDS: VANCOMYCIN INJ 1,500 MG in SODIUM CHLORID 0.9% 500 ML INJ 500 ML IV SCH ×2 (02:00→20:22)
[2016-11-28 04:49] VITALS: BP 154/73; PULSE 66; RESP 18; TEMP 98; O2SAT 96
[2016-11-28] MEDS: LEVOTHYROXINE SODIUM 125 MCG TAB PO SCH (05:26)
[2016-11-28] MEDS: INSULIN ASPART SUPPLEMENTAL SCALE SQ SCH ×4 (05:26→20:19)
[2016-11-28] MEDS: ALPRAZolam 1 MG TAB PO PRN ×3 (05:54→23:08)
[2016-11-28] MEDS: DILTIAZEM-CD 300 MG CAP ER PO SCH (07:41)
[2016-11-28] MEDS: FENOFIBRATE 145 MG TAB PO SCH (07:42)
[2016-11-28] MEDS: CALCITRIOL 0.25 MCG CAP PO SCH ×2 (07:42→20:18)
[2016-11-28] MEDS: SERTRALINE HCL 50 MG TAB PO SCH (07:42)
[2016-11-28] MEDS: CYCLOBENZAPRINE HCL 10 MG TAB PO SCH (07:42)
[2016-11-28] MEDS: FAMOTIDINE 20 MG TAB PO SCH ×2 (07:42→20:18)
[2016-11-28] MEDS: LISINOPRIL 20 MG TAB PO SCH (07:42)
[2016-11-28 08:00] VITALS: BP 133/69; PULSE 75; RESP 20; TEMP 97.7; O2SAT 95
--- NOTE | 2016-11-28 08:48 | PD.POD ---
Subjective Podiatric Problems DOS 11/27/[address] Mendez s/p Right foot I and D, right 3rd metatarsal bone biopsy and wound VAC application. Some pain to the right foot. Doing well overall. Pain scale used: 0-10 numeric scale Pain score: 4 Past Med/Surg/Social History Social History Smoking Status: Former Smoker Objective Vital Signs Vital Signs Date Time Temp Pulse Resp B/P Pulse Ox O2 Delivery O2 Flow Rate FiO2 11/28/16 08:02 Room Air 11/28/16 08:00 97.7 75 20 133/69 95 11/28/16 04:49 98.0 66 18 154/73 96 11/27/16 23:52 98.5 76 18 117/60 96 11/27/16 20:05 Room Air 11/27/16 20:00 98.2 73 18 118/55 96 11/27/16 16:00 98.6 69 18 107/55 96 11/27/16 15:21 Room Air 11/27/16 13:00 65 14 135/75 95 Nasal Cannula 2 11/27/16 12:45 67 15 145/77 96 Nasal Cannula 2 11/27/16 12:33 99.5 76 16 142/73 97 Nasal Cannula 4 Coded Allergies: Adhesives (Verified Allergy, Severe, SKIN BREAKDOWN, 11/26/16) Codeine (Verified Allergy, Severe, RASH, 11/26/16) Latex (Verified Allergy, Severe, Rash, 11/26/16) Protonix (Verified Allergy, Severe, RASH, 11/26/16) Sulfa (Verified Allergy, Severe, 11/26/16) Other Results Laboratory Tests Test 11/26/16 11/27/16 12:20 06:58 White Blood Count 6.9 TH/MM3 Red Blood Count 3.93 MIL/MM3 Hemoglobin 11.7 GM/DL Hematocrit 36.0 % Mean Corpuscular Volume 91.6 FL Mean Corpuscular Hemoglobin 29.9 PG Mean Corpuscular Hemoglobin 32.6 % Concent Red Cell Distribution Width 16.2 % Platelet Count 398 TH/MM3 Mean Platelet Volume 8.0 FL Neutrophils (%) (Auto) 55.9 % Lymphocytes (%) (Auto) 28.6 % Monocytes (%) (Auto) 11.1 % Eosinophils (%) (Auto) 2.9 % Basophils (%) (Auto) 1.5 % Neutrophils # (Auto) 3.8 TH/MM3 Lymphocytes # (Auto) 2.0 TH/MM3 Monocytes # (Auto) 0.8 TH/MM3 Eosinophils # (Auto) 0.2 TH/MM3 Basophils # (Auto) 0.1 TH/MM3 CBC Comment DIFF FINAL Differential Comment Prothrombin Time 11.4 SEC Prothromb Time International 1.0 RATIO Ratio Activated Partial 23.6 SEC Thromboplast Time Sodium Level 144 MEQ/L Potassium Level 3.6 MEQ/L Chloride Level 110 MEQ/L Carbon Dioxide Level 27.0 MEQ/L Anion Gap 7 MEQ/L Blood Urea Nitrogen 14 MG/DL Creatinine 0.81 MG/DL Estimat Glomerular Filtration 72 ML/MIN Rate Random Glucose 100 MG/DL Calcium Level 7.6 MG/DL Physical Exam Details RLE NVS intact. No erythema to the digits. No pain with ROM at the foot and ankle. No calf pain. Intact dressing and no strikethrough. Assessment & Plan Diagnosis: (1) Diabetic foot ulcer Status: Chronic A/P DOS 11/27/[address] Mendez s/p Right foot I and D, right 3rd metatarsal bone biopsy and wound VAC application. Patient will need IV abx x 2-6 weeks. Pending bone biopsy. Patient will need HHC and wound vac changes M/W/F. No further planed surgical intervention. Consult ID for PICC Discharge Planning OK to d/c with PICC and HHC with wound VAC. Consult for Case Management placed. Sara Mendez DPM Nov 28, 2016 08:47
--- NOTE | 2016-11-28 10:17 | HHI.PR ---
Subjective Remarks asking to have latex allergy removed so she can have tomatoes. she says really doesn't have latex allergy wants more pain meds Objective Vitals heart reg lung cta abd s/nt ext right foot wound vac/bandaged. Vital Signs Date Time Temp Pulse Resp B/P Pulse Ox O2 Delivery O2 Flow Rate FiO2 11/28/16 08:02 Room Air 11/28/16 08:00 97.7 75 20 133/69 95 11/28/16 04:49 98.0 66 18 154/73 96 11/27/16 23:52 98.5 76 18 117/60 96 11/27/16 20:05 Room Air 11/27/16 20:00 98.2 73 18 118/55 96 11/27/16 16:00 98.6 69 18 107/55 96 11/27/16 15:21 Room Air 11/27/16 13:00 65 14 135/75 95 Nasal Cannula 2 11/27/16 12:45 67 15 145/77 96 Nasal Cannula 2 11/27/16 12:33 99.5 76 16 142/73 97 Nasal Cannula 4 11/27/16 11/27/16 11/28/16 15:00 23:00 07:00 Intake Total 880 ml 110 ml 1108 ml Output Total 1000 ml Balance -120 ml 110 ml 1108 ml Intake Oral 480 ml 600 ml IV Total 110 ml 508 ml Other 400 ml Output Urine Total 1000 ml Estimated Blood Loss 0 ml # Voids 1 0 # Bowel Movements 1 0 Result Diagram: 11/26/16 1220 11/27/16 0658 A/P Problem List: (1) Diabetic foot ulcer Status: Chronic Plan: right dorsal foot ulceration with recent necrosis and mrsa wound cx on 11/11 also recent mri foot suggesting bone involvement and 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 s/p wound debridement of necrotic tissue. bone bx and wound vac 11/27 cont iv abx f/u bx and cx pain control ssi resumed diet dvt prophylaxis PT (2) DM (diabetes mellitus) Status: Chronic Plan: ssi (3) Hypothyroidism following radioiodine therapy Status: Chronic Plan: home meds (4) Asthma Status: Chronic Plan: home meds (5) Rheumatoid arthritis Status: Chronic Plan: home meds Washington Cardona MD Nov 28, 2016 10:17
[2016-11-28 10:30] VITALS: O2SAT 93
[2016-11-28] MEDS: ENOXAPARIN SODIUM 40 MG/0.4 ML SYRINGE SQ SCH (11:27)
[2016-11-28 12:00] VITALS: BP 124/64; PULSE 71; RESP 20; TEMP 98.1; O2SAT 96
[2016-11-28 16:00] VITALS: BP 122/60; PULSE 66; RESP 18; TEMP 97.7; O2SAT 97
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
[2016-11-28 20:00] VITALS: BP 137/65; PULSE 74; RESP 16; TEMP 98.6; O2SAT 96
[2016-11-28] MEDS: ATORVASTATIN 80 MG TAB PO SCH (20:18)
[2016-11-29] VITALS (7 sets, daily range): BP systolic 130–150; BP diastolic 62–75; PULSE 70–75; RESP 16–20; TEMP 97.7–98.2; O2SAT 93–99
[2016-11-29] MEDS: LEVOTHYROXINE SODIUM 125 MCG TAB PO SCH (05:51)
[2016-11-29] MEDS: INSULIN ASPART SUPPLEMENTAL SCALE SQ SCH ×4 (06:26→20:20)
[2016-11-29] MEDS: ALPRAZolam 1 MG TAB PO PRN ×2 (07:42→18:02)
--- NOTE | 2016-11-29 09:12 | HHI.PR ---
Subjective Remarks Pt demanding we remove the latex allergy from list. she insists this is wrong and she has no latex allergy....The kitchen has refused to give her tomatoes/ketchup and so this is what makes her upset and asking for removal from the allergy list. Objective Vitals heart reg lung cta abd s/nt ext right foot bandaged/wound vac. Vital Signs Date Time Temp Pulse Resp B/P Pulse Ox O2 Delivery O2 Flow Rate FiO2 11/29/16 08:00 97.7 70 20 140/68 99 11/29/16 05:40 16 11/29/16 04:00 98.1 74 20 141/75 99 11/29/16 00:00 98.2 71 16 150/70 97 11/28/16 23:10 Room Air 11/28/16 20:00 98.6 74 16 137/65 96 11/28/16 16:00 97.7 66 18 122/60 97 11/28/16 12:00 98.1 71 20 124/64 96 11/28/16 10:30 93 21 11/28/16 11/28/16 11/29/16 15:00 23:00 07:00 Intake Total 960 ml 480 ml 480 ml Output Total 850 ml 350 ml 1500 ml Balance 110 ml 130 ml -1020 ml Intake Oral 960 ml 480 ml 480 ml Output Urine Total 850 ml 350 ml 1500 ml # Bowel Movements 1 1 Result Diagram: 11/26/16 1220 11/27/16 0658 A/P Problem List: (1) Diabetic foot ulcer Status: Chronic Plan: right dorsal foot ulceration with recent necrosis and mrsa wound cx on 11/11 also recent mri foot suggesting bone involvement and osteo concerns of 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 s/p wound debridement of necrotic tissue. bone bx and wound vac 11/27 cont iv abx f/u bx and cx.discussed with ID. pain control ssi resumed diet dvt prophylaxis PT (2) DM (diabetes mellitus) Status: Chronic Plan: ssi (3) Hypothyroidism following radioiodine therapy Status: Chronic Plan: home meds (4) Asthma Status: Chronic Plan: home meds (5) Rheumatoid arthritis Status: Chronic Plan: home meds Washington Cardona MD Nov 29, 2016 09:12
[2016-11-29] MEDS: LISINOPRIL 20 MG TAB PO SCH (09:27)
[2016-11-29] MEDS: CYCLOBENZAPRINE HCL 10 MG TAB PO SCH (09:27)
[2016-11-29] MEDS: SERTRALINE HCL 50 MG TAB PO SCH (09:27)
[2016-11-29] MEDS: FENOFIBRATE 145 MG TAB PO SCH (09:27)
[2016-11-29] MEDS: DILTIAZEM-CD 300 MG CAP ER PO SCH (09:27)
[2016-11-29] MEDS: CALCITRIOL 0.25 MCG CAP PO SCH ×2 (09:27→20:17)
[2016-11-29] MEDS: FAMOTIDINE 20 MG TAB PO SCH ×2 (09:28→20:17)
--- NOTE | 2016-11-29 10:22 | PD.POD ---
Subjective Podiatric Problems DOS 11/27/[address] Mendez s/p Right foot I and D, right 3rd metatarsal bone biopsy and wound VAC application. Some pain to the right foot. Doing well overall. Pain scale used: 0-10 numeric scale Pain score: 2 Past Med/Surg/Social History Social History Smoking Status: Former Smoker Objective Vital Signs Vital Signs Date Time Temp Pulse Resp B/P Pulse Ox O2 Delivery O2 Flow Rate FiO2 11/29/16 08:00 97.7 70 20 140/68 99 11/29/16 05:40 16 11/29/16 04:00 98.1 74 20 141/75 99 11/29/16 00:00 98.2 71 16 150/70 97 11/28/16 23:10 Room Air 11/28/16 20:00 98.6 74 16 137/65 96 11/28/16 16:00 97.7 66 18 122/60 97 11/28/16 12:00 98.1 71 20 124/64 96 11/28/16 10:30 93 21 Coded Allergies: Adhesives (Verified Allergy, Severe, SKIN BREAKDOWN, 11/26/16) Codeine (Verified Allergy, Severe, RASH, 11/26/16) Protonix (Verified Allergy, Severe, RASH, 11/26/16) Sulfa (Verified Allergy, Severe, 11/26/16) Other Results Microbiology Date/Time Procedure Status Source Growth 11/27/16 13:50 Gram Stain - Final Resulted Wound Toe 11/27/16 13:50 Wound Culture - Preliminary Resulted Wound Toe NO GROWTH IN 24 HOURS. 11/27/16 13:50 Fungal Smear - Final Resulted Wound Toe NO FUNGAL ELEMENTS SEEN. 11/27/16 13:50 Fungal Culture Resulted Wound Toe Pending 11/27/16 13:50 Acid Fast Stain - Final Resulted Wound Toe NO ACID FAST BACILLI SEEN 11/27/16 13:50 Mycobacterial Culture Resulted Wound Toe Pending Physical Exam Details RLE Intact wound vac. ROM and NVS unchanged. Assessment & Plan Diagnosis: (1) Diabetic foot ulcer Status: Chronic A/P DOS 11/27/[address] Andrea daniels/p Right foot I and D, right 3rd metatarsal bone biopsy and wound VAC application. Patient will need IV abx x 2-6 weeks. Pending bone biopsy. Consult placed with Case Managment for HHC and wound vac changes M/W/F. No further planed surgical intervention. Dr Pink will begin coverage 12/01/16 Discharge Planning OK to d/c with PICC and HHC with wound VAC. Consult for Case Management placed. Sara Mendez DPM Nov 29, 2016 10:22
[2016-11-29] MEDS: ENOXAPARIN SODIUM 40 MG/0.4 ML SYRINGE SQ SCH (13:29)
[2016-11-29] MEDS ORDERED: PHARMACY ORDERED LAB XX ONE (13:45)
[2016-11-29] MEDS ORDERED: REMOVE OLD DURAGESIC (FENTANYL) PATCH TD SCH (14:45)
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
[2016-11-29] MEDS ORDERED: PILL SPLITTER OTHER PRN (18:30)
[2016-11-29] MEDS: SODIUM CHLOR 0.9% IV SCH (19:03)
[2016-11-29] MEDS: VORICONAZOLE IV SCH (19:03)
[2016-11-29] MEDS ORDERED: VANCOMYCIN INJ 1,500 MG in SODIUM CHLORID 0.9% 500 ML INJ 500 ML IV SCH (20:00)
[2016-11-29] MEDS: ATORVASTATIN 80 MG TAB PO SCH (20:17)
[2016-11-29] MEDS: ZOLPIDEM TARTRATE 10 MG TAB PO PRN (21:22)
[2016-11-30] VITALS (7 sets, daily range): BP systolic 103–139; BP diastolic 55–87; PULSE 62–77; RESP 17–20; TEMP 97.8–98.2; O2SAT 95–98
[2016-11-30] MEDS: SODIUM CHLOR 0.9% IV SCH ×2 (05:19→18:35)
[2016-11-30] MEDS: VORICONAZOLE IV SCH ×2 (05:19→18:35)
[2016-11-30] MEDS: LEVOTHYROXINE SODIUM 125 MCG TAB PO SCH (05:19)
[2016-11-30] MEDS: INSULIN ASPART SUPPLEMENTAL SCALE SQ SCH ×4 (05:21→21:00)
[2016-11-30] MEDS: FENOFIBRATE 145 MG TAB PO SCH (08:06)
[2016-11-30] MEDS: DILTIAZEM-CD 300 MG CAP ER PO SCH (08:07)
[2016-11-30] MEDS: FAMOTIDINE 20 MG TAB PO SCH ×2 (08:07→21:00)
[2016-11-30] MEDS: LISINOPRIL 20 MG TAB PO SCH (08:07)
[2016-11-30] MEDS: CYCLOBENZAPRINE HCL 10 MG TAB PO SCH (08:07)
[2016-11-30] MEDS: SERTRALINE HCL 50 MG TAB PO SCH (08:07)
[2016-11-30] MEDS: CALCITRIOL 0.25 MCG CAP PO SCH ×2 (08:07→21:00)
[2016-11-30] MEDS: fentaNYL 50 MCG/HR PATCH T-DERMAL SCH (08:08)
[2016-11-30 09:32] LABS: ALKALINE PHOSPHATASE 21 U/L (45-117); ALT (GPT) 18 U/L (10-53); ANION GAP 7 MEQ/L (5-15); AST (GOT) 17 U/L (15-37); BICARBONATE 27.8 MEQ/L (21.0-32.0); BLOOD UREA NITROGEN 13 MG/DL (7-18); CHLORIDE 111 MEQ/L (98-107); GLOMERULAR FILTRATION RATE 74 ML/MIN (>89); POTASSIUM 3.7 MEQ/L (3.5-5.1); SODIUM (NA) 146 MEQ/L (136-145); TOTAL BILIRUBIN ADULT 0.2 MG/DL (0.2-1.0)
[2016-11-30] MEDS: REMOVE OLD DURAGESIC (FENTANYL) PATCH TD SCH (10:20)
[2016-11-30] MEDS: ALPRAZolam 1 MG TAB PO PRN ×2 (10:35→18:44)
[2016-11-30] MEDS: ENOXAPARIN SODIUM 40 MG/0.4 ML SYRINGE SQ SCH (10:35)
--- NOTE | 2016-11-30 11:00 | HHI.PR ---
Subjective Remarks pt doing well. Objective Vitals heart reg lung cta abd s/nt ext right foot bandaged. wound vac Vital Signs Date Time Temp Pulse Resp B/P Pulse Ox O2 Delivery O2 Flow Rate FiO2 11/30/16 10:27 97 21 11/30/16 08:00 97.8 65 20 139/65 98 11/30/16 04:00 98.0 76 17 135/87 95 11/30/16 00:00 97.8 77 18 136/61 95 11/29/16 20:15 Room Air 11/29/16 20:00 98.2 74 17 134/63 93 11/29/16 16:00 97.9 70 18 142/62 97 11/29/16 12:00 98.2 75 18 130/63 94 11/29/16 11/29/16 11/30/16 15:00 23:00 07:00 Intake Total 482 ml 720 ml 180 ml Output Total 200 ml 700 ml Balance 482 ml 520 ml -520 ml Intake Oral 480 ml 720 ml 180 ml IV Total 2 ml Output Urine Total 200 ml 700 ml # Voids 3 # Bowel Movements 0 Result Diagram: 11/26/16 1220 11/30/16 0836 A/P Problem List: (1) Diabetic foot ulcer Status: Chronic Plan: right dorsal foot ulceration with recent necrosis and mrsa wound cx on 11/11 also recent mri foot suggesting bone involvement and osteo concerns of 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 s/p wound debridement of necrotic tissue. bone bx and wound vac 11/27 cont iv abx f/u cx results. some fungal/mold growing and pt currently on vanco and voriconizole per ID pain control ssi resumed diet dvt prophylaxis PT (2) DM (diabetes mellitus) Status: Chronic Plan: ssi (3) Hypothyroidism following radioiodine therapy Status: Chronic Plan: home meds (4) Asthma Status: Chronic Plan: home meds (5) Rheumatoid arthritis Status: Chronic Plan: home meds Washington Cardona MD Nov 30, 2016 11:00
[2016-11-30] MEDS ORDERED: PHARMACY ORDERED LAB XX ONE (13:45)
[2016-11-30] MEDS: ATORVASTATIN 80 MG TAB PO SCH (21:00)
[2016-11-30] MEDS: ZOLPIDEM TARTRATE 10 MG TAB PO PRN (23:03)
[2016-12-01] VITALS (8 sets, daily range): BP systolic 117–141; BP diastolic 56–69; PULSE 67–76; RESP 17–22; TEMP 97.5–98.6; O2SAT 94–100
[2016-12-01] MEDS: LEVOTHYROXINE SODIUM 125 MCG TAB PO SCH (05:18)
[2016-12-01] MEDS: VORICONAZOLE IV SCH ×2 (05:19→18:06)
[2016-12-01] MEDS: SODIUM CHLOR 0.9% IV SCH ×2 (05:19→18:06)
[2016-12-01] MEDS: INSULIN ASPART SUPPLEMENTAL SCALE SQ SCH ×4 (05:22→20:35)
[2016-12-01] MEDS: ALPRAZolam 1 MG TAB PO PRN ×2 (06:19→16:42)
[2016-12-01] MEDS: FAMOTIDINE 20 MG TAB PO SCH ×2 (09:09→21:00)
[2016-12-01] MEDS: FENOFIBRATE 145 MG TAB PO SCH (09:09)
[2016-12-01] MEDS: DILTIAZEM-CD 300 MG CAP ER PO SCH (09:09)
[2016-12-01] MEDS: SERTRALINE HCL 50 MG TAB PO SCH (09:09)
[2016-12-01] MEDS: CALCITRIOL 0.25 MCG CAP PO SCH ×2 (09:09→20:59)
[2016-12-01] MEDS: LISINOPRIL 20 MG TAB PO SCH (09:09)
[2016-12-01] MEDS: CYCLOBENZAPRINE HCL 10 MG TAB PO SCH (09:09)
[2016-12-01] MEDS: ENOXAPARIN SODIUM 40 MG/0.4 ML SYRINGE SQ SCH (11:28)
[2016-12-01] MEDS ORDERED: VANCOMYCIN INJ 1,250 MG in SODIUM CHLOR 0.9% 250 ML INJ 250 ML IV ONE (13:00)
--- NOTE | 2016-12-01 17:15 | HHI.PR ---
Subjective Remarks No new complaints. Objective Vitals Vital Signs Date Time Temp Pulse Resp B/P Pulse Ox O2 Delivery O2 Flow Rate FiO2 12/01/16 12:00 98.6 68 20 127/61 95 12/01/16 09:00 Room Air 12/01/16 08:30 98 21 12/01/16 08:00 97.5 74 22 141/69 100 12/01/16 04:00 98.1 76 18 117/60 98 12/01/16 00:00 98.3 69 17 118/56 99 11/30/16 21:06 Room Air 11/30/16 20:00 98.2 71 17 120/56 97 11/30/16 11/30/16 12/01/16 15:00 23:00 07:00 Intake Total 480 ml 320 ml 320 ml Balance 480 ml 320 ml 320 ml Intake Oral 480 ml 320 ml 320 ml # Voids 3 2 3 # Bowel Movements 1 Result Diagram: 11/30/16 0836 Imaging Last Impressions Chest X-Ray 11/26/16 0000 Signed Impressions: Service Date/Time: Saturday, November 26, 2016 11:59 - CONCLUSION: No acute disease. Mykel Rowe MD Objective Remarks GENERAL: This is a well-nourished, well-developed patient, in no apparent distress. CARDIOVASCULAR: Regular rate and rhythm without murmurs, gallops, or rubs. RESPIRATORY: Clear to auscultation. Breath sounds equal bilaterally. No wheezes , rales, or rhonchi. GASTROINTESTINAL: Abdomen soft, non-tender, nondistended. Normal active bowel sounds MUSCULOSKELETAL: right foot bandaged NEURO: Alert & Oriented x4 to person, place, time, situation. Moves all ext x4 A/P Problem List: (1) Diabetic foot ulcer Status: Chronic Plan: right dorsal foot ulceration with recent necrosis and mrsa wound cx on 11/11 also recent mri foot suggesting bone involvement and osteo concerns of 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 s/p wound debridement of necrotic tissue. bone bx and wound vac 11/27 wound cx: mold species - outpt wound cx: MRSA - case d/w Dr. Lutz (12/01/16). will make antibiotic recommendations for discharge - Pt will need to f/u with ID, to review fungus results which may take another 4 -5 days before final results available - vancom voriconizole - anticipate discharge to SNF in 1-2 days pain control ssi resumed diet dvt prophylaxis PT (2) DM (diabetes mellitus) Status: Chronic Plan: ssi (3) Hypothyroidism following radioiodine therapy Status: Chronic Plan: home meds (4) Asthma Status: Chronic Plan: home meds (5) Rheumatoid arthritis Status: Chronic Plan: home meds Problem Qualifiers (1) DM (diabetes mellitus): Qualified Code: E11.621 - Type 2 diabetes mellitus with foot ulcer, without long-term current use of insulin Amadou Ballesteros DO Dec 01, 2016 17:15
[2016-12-01] MEDS: 1/2 NS + KCL 20 MEQ INJ 1,000 ML IV SCH (18:18)
[2016-12-01] MEDS: ATORVASTATIN 80 MG TAB PO SCH (21:00)
[2016-12-01] MEDS: ZOLPIDEM TARTRATE 10 MG TAB PO PRN (21:02)
[2016-12-02] VITALS (8 sets, daily range): BP systolic 111–137; BP diastolic 53–65; PULSE 67–80; RESP 16–20; TEMP 98–98.5; O2SAT 94–99
[2016-12-02] MEDS: ALPRAZolam 1 MG TAB PO PRN ×3 (01:00→18:43)
[2016-12-02] MEDS: SODIUM CHLOR 0.9% IV SCH ×2 (05:26→16:21)
[2016-12-02] MEDS: VORICONAZOLE IV SCH ×2 (05:26→16:21)
[2016-12-02] MEDS: 1/2 NS + KCL 20 MEQ INJ 1,000 ML IV SCH (05:27)
[2016-12-02] MEDS: LEVOTHYROXINE SODIUM 125 MCG TAB PO SCH (05:34)
[2016-12-02] MEDS: INSULIN ASPART SUPPLEMENTAL SCALE SQ SCH ×4 (07:00→20:49)
[2016-12-02] MEDS: SERTRALINE HCL 50 MG TAB PO SCH (08:23)
[2016-12-02] MEDS: CYCLOBENZAPRINE HCL 10 MG TAB PO SCH (08:23)
[2016-12-02] MEDS: DILTIAZEM-CD 300 MG CAP ER PO SCH (08:23)
[2016-12-02] MEDS: LISINOPRIL 20 MG TAB PO SCH (08:23)
[2016-12-02] MEDS: FAMOTIDINE 20 MG TAB PO SCH ×2 (08:23→20:49)
[2016-12-02] MEDS: CALCITRIOL 0.25 MCG CAP PO SCH ×2 (08:23→20:49)
[2016-12-02] MEDS: FENOFIBRATE 145 MG TAB PO SCH (08:25)
[2016-12-02 09:56] LABS: BICARBONATE 26.8 MEQ/L (21.0-32.0); MAGNESIUM 1.8 MG/DL (1.5-2.5)
[2016-12-02] MEDS: ENOXAPARIN SODIUM 40 MG/0.4 ML SYRINGE SQ SCH (11:00)
[2016-12-02] MEDS: VANCOMYCIN INJ 1,250 MG in SODIUM CHLOR 0.9% 250 ML INJ 250 ML IV SCH (12:09)
[2016-12-02] MEDS ORDERED: XANA1TAB2 PO (15:50)
[2016-12-02] MEDS ORDERED: FENT50DI T-DERMAL (15:50)
[2016-12-02] MEDS ORDERED: VORI200T6 PO (15:50)
[2016-12-02] MEDS ORDERED: AMBI10TA PO (15:50)
[2016-12-02] MEDS ORDERED: NOVOLOGSS SQ (16:00)
[2016-12-02] MEDS ORDERED: OXYC-395 PO (16:00)
[2016-12-02 16:10] LABS: TOTAL BILIRUBIN ADULT 0.1 MG/DL (0.2-1.0)
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
--- NOTE | 2016-12-02 16:11 | HHI.DCPOC ---
Discharge Care Plan Diagnosis: (1) Diabetic foot ulcer (2) DM (diabetes mellitus) Goals to Promote Your Health * To prevent worsening of your condition and complications * To maintain your health at the optimal level Directions to Meet Your Goals Take your medications as prescribed Follow your dietary instruction Follow activity as directed Keep your appointments as scheduled Take your immunizations and boosters as scheduled If your symptoms worsen call your PCP, if no PCP go to Urgent Care Center or Emergency Room Smoking is Dangerous to Your Health. Avoid second hand smoke Call the 24-hour hour crisis hotline for domestic abuse at Amadou Ballesteros DO Dec 02, 2016 16:11
[2016-12-02] MEDS: ATORVASTATIN 80 MG TAB PO SCH (20:49)
[2016-12-03 04:44] VITALS: BP 140/68; PULSE 68; RESP 16; TEMP 98.2; O2SAT 97
[2016-12-03] MEDS: VORICONAZOLE IV SCH (05:13)
[2016-12-03] MEDS: LEVOTHYROXINE SODIUM 125 MCG TAB PO SCH (05:13)
[2016-12-03] MEDS: SODIUM CHLOR 0.9% IV SCH (05:13)
[2016-12-03] MEDS: ALPRAZolam 1 MG TAB PO PRN ×2 (05:13→13:54)
[2016-12-03] MEDS: VANCOMYCIN INJ 1,250 MG in SODIUM CHLOR 0.9% 250 ML INJ 250 ML IV SCH (06:03)
[2016-12-03] MEDS: INSULIN ASPART SUPPLEMENTAL SCALE SQ SCH ×2 (07:00→11:49)
[2016-12-03 08:00] VITALS: BP 148/65; PULSE 69; RESP 20; TEMP 98; O2SAT 96
[2016-12-03 08:07] VITALS: O2SAT 98
[2016-12-03] MEDS: REMOVE OLD DURAGESIC (FENTANYL) PATCH TD SCH (09:00)
[2016-12-03] MEDS: CYCLOBENZAPRINE HCL 10 MG TAB PO SCH (09:05)
[2016-12-03] MEDS: DILTIAZEM-CD 300 MG CAP ER PO SCH (09:05)
[2016-12-03] MEDS: CALCITRIOL 0.25 MCG CAP PO SCH (09:06)
[2016-12-03] MEDS: FENOFIBRATE 145 MG TAB PO SCH (09:06)
[2016-12-03] MEDS: LISINOPRIL 20 MG TAB PO SCH (09:06)
[2016-12-03] MEDS: FAMOTIDINE 20 MG TAB PO SCH (09:06)
[2016-12-03] MEDS: SERTRALINE HCL 50 MG TAB PO SCH (09:07)
[2016-12-03] MEDS: fentaNYL 50 MCG/HR PATCH T-DERMAL SCH (09:08)
[2016-12-03] MEDS: ENOXAPARIN SODIUM 40 MG/0.4 ML SYRINGE SQ SCH (09:08)
[2016-12-03] MEDS ORDERED: CLIN1CAP6 PO (11:16)
[2016-12-03 12:00] VITALS: BP 133/62; PULSE 69; RESP 20; TEMP 98; O2SAT 97
--- NOTE | 2016-12-03 12:26 | HHI.PR ---
Addendum to Inpatient Note Additional Information OK to dc home LFTs wnl cont clinda x 10 days cont voriconazole 200 bid x 14 days LFTs at least weekly fu c ID (Dr Garrido with [facility]) dw Ashley Becker MD Dec 03, 2016 12:26
[2016-12-03 13:54] VITALS: RESP 18
[2016-12-04] MEDS ORDERED: PHARMACY ORDERED LAB XX ONE (18:45)
== END 2016-12-03 14:10 | DRG 630 ==
LOC: NEPE 11:34 → NEDA 14:10 → N04B 19:40
PROVIDERS: ADMIT Hospitalist; ATTEND Hospitalist
PROC: 0QBN0ZX Excision of Right Metatarsal, Open Approach, Diagnostic (ICD-10-PCS; 2016-11-27)
PROC: 0LBV0ZZ Excision of Right Foot Tendon, Open Approach (ICD-10-PCS; principal; 2016-11-27 11:37)
DX: E11.621 Type 2 diabetes mellitus with foot ulcer (principal); E11.22 Type 2 diabetes mellitus with diabetic chronic kidney disease; N18.3 Chronic kidney disease, stage 3 (moderate); M06.9 Rheumatoid arthritis, unspecified; L08.9 Local infection of the skin and subcutaneous tissue, unspecified; J44.9 Chronic obstructive pulmonary disease, unspecified; E89.0 Postprocedural hypothyroidism; G47.33 Obstructive sleep apnea (adult) (pediatric); K21.9 Gastro-esophageal reflux disease without esophagitis; D50.9 Iron deficiency anemia, unspecified; E78.5 Hyperlipidemia, unspecified; M79.7 Fibromyalgia; H40.9 Unspecified glaucoma; F41.9 Anxiety disorder, unspecified; G47.00 Insomnia, unspecified; I12.9 Hypertensive chronic kidney disease with stage 1 through stage 4 chronic kidney disease, or unspecified chronic kidney disease; E11.65 Type 2 diabetes mellitus with hyperglycemia; Z79.4 Long term (current) use of insulin; Z87.891 Personal history of nicotine dependence
CPT/HCPCS: 71010; 80048; 80053; 80076; 80202; 82948; 83735; 85025; 85610; 85730; 87015; 87070; 87102; 87107; 87116; 87205; 87206; 88304; 88307; 88311; 93005; J1650; J1815; J2250; J2270; J2405; J3010; J3370; J3465; J7030; J7040; J7042; J7050; L3260

== ENCOUNTER → 2017-01-15 | Day surgery (SDC) | payer MEDICARE ==
[~2017-01-15] MED LIST changes: -ALBI1INJ SQ; +BUPIVACAINE HCL PF 0.5% 30 ML VIAL ONE; +BUPIVACAINE/EPINEPHRINE 0.5% PF 30 ML VIAL ONE; -BUTA1TAB PO; -CIPR100T2 PO; +CLIN1CAP6 PO; -CYCL1TAB29 PO; -HYDR-3583 PO; +LACTATED RINGER'S 1000 ML INJ 1,000 ML ONE; -METF1000 PO; +MIDAZOLAM HCL 2 MG/2 ML VIAL ONE; +MINERAL OIL 10 ML VIAL ONE; +NOVOLOGSS SQ; +OXYC-395 PO; +PROPOFOL 200 MG/20 ML AMP IV ONE; +SODIUM CHLORIDE 0.9% SOLN 100 ML (PAB) BAG IV ONE; +VANCOMYCIN 500 MG VIAL ONE; -VITA100021 SL; +VORI200T6 PO; -ZOFR4TAB3 SL
--- NOTE | 2017-01-19 08:33 | MP ---
cc: AUGUSTINA PINK DPM DATE OF SURGERY 01/15/17 SURGEON Nay Pink MD HEALTH AND SAFETY SPECIALIST Jovi Wisdom MD PREOPERATIVE DIAGNOSIS Right foot stage II ulceration POSTOPERATIVE DIAGNOSIS Right foot stage II ulceration PROCEDURE 1. Right thigh split thickness skin graft harvest 2. Right foot wound VAC preparation. 3. Right foot VAC application. ANESTHESIA General. HEMOSTASIS Anatomical dissection ESTIMATED BLOOD LOSS Less than 20 mL MATERIALS USED 3-0 Monocryl, Adaptic and a KCI wound VAC INJECTABLES 10 mL of 0.5% Marcaine plain around the foot and 15 mL of 0.5% Marcaine with epi around the right thigh. COMPLICATIONS None. INDICATIONS Mrs. Miner is a 61 year old female well known to myself and my partner, Dr. Srinivas Wisdom. She has had a longstanding right foot ulceration which is now fully granular and can hopefully be closed with a split thickness skin graft to avoid any infections or wound deepening. The consent was signed. The procedure was explained. No guarantees were given. PROCEDURE IN DETAIL Under mild sedation, the patient was brought into the operating room, placed on the operating table in the supine position. The leg was scrubbed, prepped and draped in usual aseptic manner. Attention was directed to the dorsal aspect of the right foot where a 2.5 x 2.5 x 0 ulceration was noted on the dorsal distal aspect of the foot mostly granular in nature. Fibrotic tissue was removed using a scalpel blade to leave mostly healthy bleeding tissue intact. There was no exposed tendon to deep probing wound. Attention was then directed to the lateral aspect of the upper right thigh where the wound measurements were then marked on the patient's skin and 0.5% Marcaine with epinephrine was injected under the skin to tumesce in preparation of the skin graft. Once the skin began to joslyn, a two inch blade guard was applied to the dermatome and a skin graft was harvested. An appropriate, evenly sized piece of graft was obtained. It was then meshed to a 1.5 to 1 meshing ratio and applied to the dorsal wound aspect. Any excess grafting material was trimmed away from the wound site and the graft was then sewn in place with four Monocryl sutures. Adaptic was placed on top and a KCI black wound VAC sponge was cut to size and fit over the Adaptic, was secured with VAC tape and tubing and set to 75 mmHg, low intensity, continuous flow and an excellent seal was achieved. Attention was then redirected to the right thigh which was cleansed with sterile saline, dried. Then Xeroform was applied. An abdominal pad was then used to cover it and Tegaderm was used to secure it. The wound VAC was padded with abdominal pads and cast padding and a light Jay wrap was applied. The patient tolerated the procedure and the anesthesia well. She will recover in the post anesthesia care unit for a period of time before being discharged home with written and oral postoperative instructions. Augustina GARCIA/ /12:44 PM /8:32 AM
== END | disposition home or self-care (01) ==
LOC: ESDC 06:22
PROVIDERS: ATTEND Podiatrist Foot & Ankle Surgery
DX: L97.523 Non-pressure chronic ulcer of other part of left foot with necrosis of muscle (principal)
CPT/HCPCS: 00400; 15120; J2250; J3010; J3370; J7120

== ENCOUNTER 2017-04-22 23:34 | Inpatient (IN) | payer MEDICARE ==
[~2017-04-22] VITALS: Ht 167.6 cm; Wt 87.7 kg
[~2017-04-22 23:34] MED LIST changes: -BUPIVACAINE HCL PF 0.5% 30 ML VIAL ONE; -BUPIVACAINE/EPINEPHRINE 0.5% PF 30 ML VIAL ONE; -LACTATED RINGER'S 1000 ML INJ 1,000 ML ONE; -MIDAZOLAM HCL 2 MG/2 ML VIAL ONE; -MINERAL OIL 10 ML VIAL ONE; -PROPOFOL 200 MG/20 ML AMP IV ONE; -SODIUM CHLORIDE 0.9% SOLN 100 ML (PAB) BAG IV ONE; -VANCOMYCIN 500 MG VIAL ONE
[2017-04-22 23:55] VITALS: BP 205/89; PULSE 84; RESP 20; TEMP 97.9
[2017-04-22] MEDS ORDERED: SODIUM CHLOR 0.9% 1000 ML INJ 1,000 ML IV SCH (23:57)
[2017-04-23] VITALS (8 sets, daily range): BP systolic 161–204; BP diastolic 74–98; PULSE 86–94; RESP 17–20; TEMP 98.1–100; O2SAT 92–100
[2017-04-23] MEDS ORDERED: SODIUM CHLORIDE 0.9% FLUSH 10 ML FLUSH IV FLUSH PRN
[2017-04-23] MEDS ORDERED: ONDANSETRON HCL 4 MG/2 ML VIAL IVP ONE
[2017-04-23] MEDS ORDERED: HYDROmorphone HCL PF 1 MG/ML VIAL IVS ONE
[2017-04-23] MEDS ORDERED: DICYCLOMINE HCL 10 MG CAP PO ONE
[2017-04-23] MEDS ORDERED: DIATRIZOATE MEGLUM/DIATRIZOATE SOD 9 ML CUP ONE (00:09)
[2017-04-23 00:15] LABS: AUTOMATED NEUTROPHIL # 16.9 TH/MM3 (1.8-7.7); BASOPHIL % 0.2 % (0.0-2.0); EOSINOPHIL % 0.2 % (0.0-4.0); HEMATOCRIT 42.1 % (35.0-46.0); HEMO FLAGS DIFF FINAL; LYMPH % 6.2 % (9.0-44.0); LYMPHOCYTE # 1.2 TH/MM3 (1.0-4.8); MEAN CELL VOLUME 93.4 FL (80.0-100.0); MEAN CORPUSCULAR HEMOGLOBIN 30.6 PG (27.0-34.0); MEAN CORPUSCULAR HGB CONC 32.8 % (32.0-36.0); MONO % 6.8 % (0.0-8.0); NEUT % 86.6 % (16.0-70.0); PLATELET COUNT 293 TH/MM3 (150-450); RED BLOOD COUNT 4.51 MIL/MM3 (4.00-5.30); RED CELL DISTRIBUTION WIDTH 16.5 % (11.6-17.2); WHITE BLOOD COUNT 19.5 TH/MM3 (4.0-11.0)
[2017-04-23 00:37] LABS: ALT (GPT) 29 U/L (10-53); ANION GAP 14 MEQ/L (5-15); AST (GOT) 17 U/L (15-37); BICARBONATE 22.5 MEQ/L (21.0-32.0); BLOOD UREA NITROGEN 16 MG/DL (7-18); CHLORIDE 107 MEQ/L (98-107); GLOMERULAR FILTRATION RATE 51 ML/MIN (>89); POTASSIUM 3.8 MEQ/L (3.5-5.1); SODIUM (NA) 143 MEQ/L (136-145)
[2017-04-23 00:39] LABS: ALKALINE PHOSPHATASE 33 U/L (45-117); TOTAL BILIRUBIN ADULT 0.5 MG/DL (0.2-1.0)
[2017-04-23] MEDS ORDERED: HYDROmorphone HCL PF 1 MG/ML VIAL IV PUSH ONE ×2 (01:30→04:00)
[2017-04-23] MEDS ORDERED: IOHEXOL 350 MG/ML 10 ML VIAL (for RAD DIAG) IV ONE (03:35)
--- NOTE | 2017-04-23 03:43 | RADRPT ---
EXAM DATE/TIME: 04/23/2017 03:14 [place] COMPARISON: CT ABDOMEN & PELVIS W CONTRAST, November 14, 2016, 18:54. INDICATIONS : Abdominal pain with constipation and vomiting. IV CONTRAST: 98 cc Omnipaque 350 (iohexol) IV ORAL CONTRAST: Prescribed oral contrast ingested. RADIATION DOSE: 9.96 CTDIvol (mGy) MEDICAL HISTORY : Carcinoma, colon. Hypertension. Gastroesophageal reflux disease.Diabetes. Thyroid cancer. SURGICAL HISTORY : Cholecystectomy. Tubal ligation. Hysterectomy. Sigmoid Colectomy. Thyroidectomy ENCOUNTER: Initial ACUITY: 3 days PAIN SCALE: 10/10 LOCATION: All quadrants. TECHNIQUE: Volumetric scanning of the abdomen and pelvis was performed. Using automated exposure control and ad justment of the mA and/or kV according to patient size, radiation dose was kept as low as reasonably achievable to obtain optimal diagnostic quality images. DICOM format image data is available electro nically for review and comparison. FINDINGS: LOWER LUNGS: Mild bibasilar atelectasis. The LIVER: Homogeneous density. There is a stable 1.6 and meter left lobe hepatic cyst. There is no dilation of the biliary tree. No gallbladder, surgically removed. There is fatty infiltration liver. There is a trace of fluid adjacent to the liver.. SPLEEN: Normal size without lesion. PANCREAS: Within normal limits. KIDNEYS: Normal in size and shape. There is no mass, stone or hydronephrosis. ADRENAL GLANDS: Within normal limits. VASCULAR: There is no aortic aneurysm. Atherosclerotic changes. BOWEL/MESENTERY: There are multiple moderately dilated loops of proximal and mid small bowel. The distal small bowel a nd terminal ileum are nondilated. The colon is nondilated. There is stool throughout the colon. The a ppendix is unremarkable. No definite inflammatory changes are seen. There is a trace of fluid deep in the pelvis. No free air. ABDOMINAL WALL: Within normal limits. RETROPERITONEUM: There is no lymphadenopathy. BLADDER: No wall thickening or mass. REPRODUCTIVE: Within normal limits. INGUINAL: There is no lymphadenopathy or hernia. MUSCULOSKELETAL: Within normal limits for patient age. Degenerative changes. CONCLUSION: 1. There are multiple moderately distended proximal and mid small bowel loops with a transition zone in the mid to distal small bowel characteristic of a small bowel obstruction. 2. There is a small amount of free fluid in the abdomen. No evidence of free air. 3. Stable left lobe hepatic cysts. Romie Johns MD on April 23, 2017 at 3:36 Board Certified Radiologist. This report was verified electronically.
[2017-04-23] MEDS ORDERED: ONDANSETRON HCL 4 MG/2 ML VIAL IV PUSH ONE (04:00)
--- NOTE | 2017-04-23 04:09 | PD ---
HPI Chief Complaint: GI Complaint Time Seen by Provider: 23:55 Travel History International Travel<30 days: No Contact w/Intl Traveler<30days: No Traveled to known affect area: No History of Present Illness HPI 61-year-old female describes abdominal pain for about 3 days. She has had no bowel movement for 3 days at least. She has passed no flatus. Pain is generalized. She reports a history of small bowel obstruction. She denies urinary complaints. Positive subjective fever reported. Patient reports history of colon cancer in 2004 treated in [facility]. She has had no recurrence since. She has undergone a hysterectomy and multiple surgeries related to ovarian disease. PFSH Past Medical History Hx Anticoagulant Therapy: No Arthritis: Yes (RHEUMATOID ARTHRITIS, OSTEOARTHRITIS) Autoimmune Disease: Yes (RA) Blood Disorders: No Anxiety: Yes Depression: Yes Cancer: Yes (colon) Cardiovascular Problems: Yes (HTN, CHOL) High Cholesterol: Yes Chemotherapy: No Congestive Heart Failure: Yes Cerebrovascular Accident: No Diabetes: Yes Patient Takes Glucophage: Yes Diminished Hearing: No Deep Vein Thrombosis: Yes (AND PE PER PT) Endocrine: Yes Fibromyalgia: Yes Gastrointestinal Disorders: Yes GERD: Yes Glaucoma: Yes Genitourinary: No Hepatitis: No Hiatal Hernia: No Hypertension: Yes Immune Disorder: Yes Implanted Vascular Access Dvce: No Musculoskeletal: Yes ( CERVICAL DDD) Neurologic: No Psychiatric: Yes Reproductive: No Respiratory: Yes (COPD) Immunizations Current: Yes Migraines: Yes Radiation Therapy: Yes Seizures: No Thyroid Disease: Yes (removed) Tetanus Vaccination: < 5 Years Influenza Vaccination: Yes ?: Not Menopausal: Yes : 1 Para: 1 Ovarian Cysts: Yes Tubal Ligation: Yes Past Surgical History Abdominal Surgery: Yes (SIGMOID COLECTOMY, LAP PATRICIA) AICD: No Cardiac Surgery: No Cholecystectomy: Yes Ear Surgery: No Endocrine Surgery: Yes (TOTAL THYROIDECTOMY) Eye Surgery: Yes (CLARICE. LASIK) Genitourinary Surgery: No Gynecologic Surgery: Yes (OVARIAN CYSTECTOMY. HYSTERECTOMY/BSO) Hysterectomy: Yes Joint Replacement: No Neurologic Surgery: No Oral Surgery: No Pacemaker: No Thoracic Surgery: No Other Surgery: Yes (THYROIDECTOMY WITH RADIATION, BREAST REDUCTION) Social History Alcohol Use: No Tobacco Use: No (QUIT) Substance Use: No Allergies-Medications (Allergen,Severity, Reaction): Coded Allergies: Adhesives (Verified Allergy, Severe, SKIN BREAKDOWN, 04/23/17) Codeine (Verified Allergy, Severe, RASH, 04/23/17) Protonix (Verified Allergy, Severe, RASH, 04/23/17) Sulfa (Verified Allergy, Severe, 04/23/17) Reported Meds & Prescriptions Reported Meds & Active Scripts Active Oxycodone (Oxycodone HCl) 10 Mg Tab 10 Mg PO Q6H PRN Xanax (Alprazolam) 1 Mg Tab 1 Mg PO Q8H PRN Ambien (Zolpidem Tartrate) 10 Mg Tab 10 Mg PO HS PRN Fentanyl Patch 72 HR (Fentanyl) 50 Mcg/Hr Patch 50 Mcg T-DERMAL Q72H Remove old patch when new one placed. Reported Zoloft (Sertraline HCl) 25 Mg Tab 25 Mg PO DAILY Lisinopril 40 Mg Tab 40 Mg PO DAILY Ranitidine (Ranitidine HCl) 150 Mg Cap 150 Mg PO BID Levothyroxine (Levothyroxine Sodium) 125 Mcg Tab 125 Mcg PO QOD Calcitriol 0.25 Mcg Cap 0.25 Mcg PO BID Methotrexate 2.5 Mg Tab 20 Mg PO Q7D Diltiazem HCl ER (Diltiazem HCl Coated Beads) 300 Mg Cap 1 Tab PO DAILY Atorvastatin (Atorvastatin Calcium) 80 Mg Tab 80 Mg PO HS Review of Systems Except as stated in HPI: all other systems reviewed are Neg Physical Exam Narrative GENERAL: 61-year-old female mild to moderate distress secondary to pain SKIN: Focused skin assessment warm/dry. HEAD: Atraumatic. Normocephalic. EYES: Pupils equal and round. No scleral icterus. No injection or drainage. ENT: No nasal bleeding or discharge. Mucous membranes pink and moist. NECK: Trachea midline. No JVD. CARDIOVASCULAR: Regular rate and rhythm. No murmur appreciated. RESPIRATORY: No accessory muscle use. Clear to auscultation. Breath sounds equal bilaterally. GASTROINTESTINAL: Diffuse generalized tenderness. Mild distention. MUSCULOSKELETAL: No obvious deformities. No clubbing. No cyanosis. No edema. NEUROLOGICAL: Awake and alert. No obvious cranial nerve deficits. Motor grossly within normal limits. Normal speech. PSYCHIATRIC: Appropriate mood and affect; insight and judgment normal. Data Data Last Documented VS Vital Signs Date Time Temp Pulse Resp B/P Pulse Ox O2 Delivery O2 Flow Rate FiO2 04/23/17 01:39 89 20 169/79 100 Room Air 04/22/17 23:55 97.9 Vital signs reviewed Orders Complete Blood Count With Diff (04/22/17 23:57) Comprehensive Metabolic Panel (04/22/17 23:57) Lipase (04/22/17 23:57) Urinalysis - C+S If Indicated (04/22/17 23:57) Iv Access Insert/Monitor (04/22/17 23:57) Ecg Monitoring (04/22/17 23:57) Oximetry (04/22/17 23:57) Ondansetron Inj (Zofran Inj) (04/23/17 00:00) Sodium Chlor 0.9% 1000 Ml Inj (Ns 1000 M (04/22/17 23:57) Sodium Chloride 0.9% Flush (Ns Flush) (04/23/17 00:00) Dicyclomine (Bentyl) (04/23/17 00:00) Hydromorphone Pf Inj (Dilaudid Pf Inj) (04/23/17 00:00) Ct Abd/Pel W Iv Contrast(Rout) (04/23/17 ) Oral Contrast - Adult (04/23/17 00:04) Diatrizoate Liq ( Gastroview Liq) (04/23/17 00:09) Hydromorphone Pf Inj (Dilaudid Pf Inj) (04/23/17 01:30) Iohexol 350 Inj (Omnipaque 350 Inj) (04/23/17 03:35) Hydromorphone Pf Inj (Dilaudid Pf Inj) (04/23/17 04:00) Ondansetron Inj (Zofran Inj) (04/23/17 04:00) Sodium Chlor 0.9% 1000 Ml Inj (Ns 1000 M (04/23/17 04:00) Insert Ng Tube (04/23/17 03:57) Admit Order (Ed Use Only) (04/23/17 04:17) Consult General Surgery (04/23/17 ) Vital Signs (Adult) Q4H (04/23/17 04:18) Diet Npo (04/23/17 Breakfast) Activity Oob With Assistance (04/23/17 04:18) Resp Oxygen Jay C Titrat 1-4 L (04/23/17 ) Sodium Chloride 0.9% Flush (Ns Flush) (04/23/17 09:00) Sodium Chloride 0.9% Flush (Ns Flush) (04/23/17 04:30) Labs Laboratory Tests Test 04/23/17 00:05 White Blood Count 19.5 TH/MM3 Red Blood Count 4.51 MIL/MM3 Hemoglobin 13.8 GM/DL Hematocrit 42.1 % Mean Corpuscular Volume 93.4 FL Mean Corpuscular Hemoglobin 30.6 PG Mean Corpuscular Hemoglobin 32.8 % Concent Red Cell Distribution Width 16.5 % Platelet Count 293 TH/MM3 Mean Platelet Volume 8.0 FL Neutrophils (%) (Auto) 86.6 % Lymphocytes (%) (Auto) 6.2 % Monocytes (%) (Auto) 6.8 % Eosinophils (%) (Auto) 0.2 % Basophils (%) (Auto) 0.2 % Neutrophils # (Auto) 16.9 TH/MM3 Lymphocytes # (Auto) 1.2 TH/MM3 Monocytes # (Auto) 1.3 TH/MM3 Eosinophils # (Auto) 0.0 TH/MM3 Basophils # (Auto) 0.0 TH/MM3 CBC Comment DIFF FINAL Differential Comment Sodium Level 143 MEQ/L Potassium Level 3.8 MEQ/L Chloride Level 107 MEQ/L Carbon Dioxide Level 22.5 MEQ/L Anion Gap 14 MEQ/L Blood Urea Nitrogen 16 MG/DL Creatinine 1.09 MG/DL Estimat Glomerular Filtration 51 ML/MIN Rate Random Glucose 149 MG/DL Calcium Level 8.5 MG/DL Total Bilirubin 0.5 MG/DL Aspartate Amino Transf 17 U/L (AST/SGOT) Alanine Aminotransferase 29 U/L (ALT/SGPT) Alkaline Phosphatase 33 U/L Total Protein 6.2 GM/DL Albumin 3.2 GM/DL Lipase 272 U/L [facility] Medical Decision Making Medical Screen Exam Complete: Yes Emergency Medical Condition: Yes Medical Record Reviewed: Yes Differential Diagnosis Constipation, Gastritis, Acute Cholecystitis, Biliary Colic, Pancreatitis, ORDONEZ , Hepatitis, Bowel Obstruction, Cystitis, Mesenteric Ischemia, AAA, Appendicitis , Renal Stone/Hydronephrosis, GERD, perforated viscous Narrative Course CBC & BMP Diagram 04/23/17 00:05 Neutrophils 86.6 LFTs essentially unremarkable Lipase 272 Last 24 hours Impressions Abdomen/Pelvis CT 04/23/17 0000 Signed Impressions: Service Date/Time: Thursday, April 23, 2017 03:14 - CONCLUSION: 1. There are multiple moderately distended proximal and mid small bowel loops with a transition zone in the mid to distal small bowel characteristic of a small bowel obstruction. 2. There is a small amount of free fluid in the abdomen. No evidence of free air. 3. Stable left lobe hepatic cysts. Romie Johns MD Patient has a small bowel obstruction. Nasogastric tube placed. Maintenance fluids started. Additional doses of hydromorphone and Zofran were ordered at time of reassessment, [address] Linn at 4:[address] Hathaway at 4:22 AM Diagnosis Primary Impression: Bowel obstruction Qualified Code: K56.60 - Intestinal obstruction, unspecified type Admitting Information Admitting Physician Requests: it Jose Alfredo Olivares MD Apr 23, 2017 04:09
[2017-04-23] MEDS ORDERED: SODIUM CHLORIDE 0.9% FLUSH 10 ML FLUSH IVF PRN (04:30)
[2017-04-23 04:36] LABS: BLOOD, URINE NEG (NEG); COMMENT (UR) CULTURE INDICATED; CULTURE IF INDICATED CULTURE INDICATED; GLUCOSE,URINE NEG (NEG); HYALINE CAST, URINE 1 /lpf (RARE); KETONE, URINE NEG (NEG); MUCUS URINE FEW /lpf (OCC); NITRITE,URINE NEG (NEG); RENAL EPITHELIAL CELLS <1 /hpf; SQUAMOUS EPITHELIAL CELL URINE 2 /hpf (0-5); TRANSITIONAL EPI CELLS, URINE <1 /hpf; URINE COLOR YELLOW (YELLW/STRAW)
[2017-04-23] MEDS: SODIUM CHLOR 0.9% 1000 ML INJ 1,000 ML IV SCH ×2 (04:40→13:51)
[2017-04-23] MEDS ORDERED: HYDROmorphone HCL PF 1 MG/ML VIAL IV PRN (09:00)
[2017-04-23] MEDS ORDERED: SODIUM CHLORIDE 0.9% FLUSH 10 ML FLUSH IV FLUSH SCH (09:00)
[2017-04-23] MEDS: HYDROmorphone HCL PF 1 MG/ML VIAL IV PRN ×2 (12:01→15:33)
[2017-04-23] MEDS ORDERED: NALOXONE HCL 0.4 MG/ML AMP IV PRN (13:00)
[2017-04-23] MEDS ORDERED: BISACODYL 10 MG SUPP RECTAL PRN (13:00)
[2017-04-23] MEDS ORDERED: SENNOSIDES 8.6 MG TAB PO PRN (13:00)
[2017-04-23] MEDS ORDERED: LACTULOSE SYRUP 20 GM/30 ML CUP PO PRN (13:00)
[2017-04-23] MEDS ORDERED: MAGNESIUM HYDROXIDE SUSP 30 ML CUP PO PRN (13:00)
--- NOTE | 2017-04-23 13:08 | HHI.HP ---
HPI Service [facility] Hospitalists Primary Care Physician Wilber Mcdermott MD Admission Diagnosis SBO Chief Complaint: 3 days abdominal pain Travel History International Travel<30 Days: No Contact w/Intl Traveler <30 Da: No Traveled to Known Affected Are: No History of Present Illness 61-year-old female describes abdominal pain for about 3 days. She has had no bowel movement for 3 days at least. She has passed no flatus. Pain is generalized. She reports a history of small bowel obstruction. She denies urinary complaints. Positive subjective fever reported. Patient reports history of colon cancer in 2004 treated in [facility]. She has had no recurrence since. She has undergone a hysterectomy and multiple surgeries related to ovarian disease. Patient had CT suggesting SBO admit surgical evaluation . Review of Systems Gastrointestinal: COMPLAINS OF: Abdominal pain, Constipation Past Family Social History Past Medical History RA,hx ca colon,hypertension,hyperlipidemia,hx DVT and PE,fibromyalgia,djd,?copd, hx chf Past Surgical History sigmoid colectomy,lap-chol,thyroidectomy s/p rt hysterectomy with bso Reported Medications Oxycodone (Oxycodone HCl) 10 Mg Tab 10 Mg PO Q6H PRN Xanax (Alprazolam) 1 Mg Tab 1 Mg PO Q8H PRN Ambien (Zolpidem Tartrate) 10 Mg Tab 10 Mg PO HS PRN Fentanyl Patch 72 HR (Fentanyl) 50 Mcg/Hr Patch 50 Mcg T-DERMAL Q72H Remove old patch when new one placed. Reported Zoloft (Sertraline HCl) 25 Mg Tab 25 Mg PO DAILY Lisinopril 40 Mg Tab 40 Mg PO DAILY Ranitidine (Ranitidine HCl) 150 Mg Cap 150 Mg PO BID Levothyroxine (Levothyroxine Sodium) 125 Mcg Tab 125 Mcg PO QOD Calcitriol 0.25 Mcg Cap 0.25 Mcg PO BID Methotrexate 2.5 Mg Tab 20 Mg PO Q7D Diltiazem HCl ER (Diltiazem HCl Coated Beads) 300 Mg Cap 1 Tab PO DAILY Atorvastatin (Atorvastatin Calcium) 80 Mg Tab 80 Mg PO HS Allergies: Coded Allergies: Adhesives (Verified Allergy, Severe, SKIN BREAKDOWN, 04/23/17) Codeine (Verified Allergy, Severe, RASH, 04/23/17) Protonix (Verified Allergy, Severe, RASH, 04/23/17) Sulfa (Verified Allergy, Severe, 04/23/17) Social History former smoker,no etoh Physical Exam Vital Signs Vital Signs Date Time Temp Pulse Resp B/P Pulse Ox O2 Delivery O2 Flow Rate FiO2 04/23/17 12:45 100.0 87 20 184/84 97 04/23/17 08:56 92 21 04/23/17 07:34 98.5 92 18 161/74 96 04/23/17 05:37 95 24 163/77 95 04/23/17 04:24 100 04/23/17 01:39 89 20 169/79 100 Room Air 04/22/17 23:55 97.9 84 20 205/89 Physical Exam GENERAL: This is a well-nourished, well-developed patient, in no apparent distress. SKIN: No rashes, ecchymoses or lesions. Cool and dry. HEAD: Atraumatic. Normocephalic. No temporal or scalp tenderness. EYES: Pupils equal round and reactive. Extraocular motions intact. No scleral icterus. No injection or drainage. ENT: Nose without bleeding, purulent drainage or septal hematoma. Throat without erythema, tonsillar hypertrophy or exudate. Uvula midline. Airway patent. NECK: Trachea midline. No JVD or lymphadenopathy. Supple, nontender, no meningeal signs. CARDIOVASCULAR: Regular rate and rhythm without murmurs, gallops, or rubs. RESPIRATORY: Clear to auscultation. Breath sounds equal bilaterally. No wheezes , rales, or rhonchi. GASTROINTESTINAL: Abdomen soft,tender to palpation mild distended. No hepato- splenomegaly, or palpable masses. No guarding. MUSCULOSKELETAL: Extremities without clubbing, cyanosis, or edema. No joint tenderness, effusion, or edema noted. No calf tenderness. Negative Homans sign bilaterally. NEUROLOGICAL: Awake and alert. Cranial nerves II through XII intact. Motor and sensory grossly within normal limits. Five out of 5 muscle strength in all muscle groups. Normal speech. Laboratory Laboratory Tests Test 04/23/17 04/23/17 00:05 04:05 White Blood Count 19.5 Red Blood Count 4.51 Hemoglobin 13.8 Hematocrit 42.1 Mean Corpuscular Volume 93.4 Mean Corpuscular Hemoglobin 30.6 Mean Corpuscular Hemoglobin 32.8 Concent Red Cell Distribution Width 16.5 Platelet Count 293 Mean Platelet Volume 8.0 Neutrophils (%) (Auto) 86.6 Lymphocytes (%) (Auto) 6.2 Monocytes (%) (Auto) 6.8 Eosinophils (%) (Auto) 0.2 Basophils (%) (Auto) 0.2 Neutrophils # (Auto) 16.9 Lymphocytes # (Auto) 1.2 Monocytes # (Auto) 1.3 Eosinophils # (Auto) 0.0 Basophils # (Auto) 0.0 CBC Comment DIFF FINAL Differential Comment Sodium Level 143 Potassium Level 3.8 Chloride Level 107 Carbon Dioxide Level 22.5 Anion Gap 14 Blood Urea Nitrogen 16 Creatinine 1.09 Estimat Glomerular Filtration 51 Rate Random Glucose 149 Calcium Level 8.5 Total Bilirubin 0.5 Aspartate Amino Transf 17 (AST/SGOT) Alanine Aminotransferase 29 (ALT/SGPT) Alkaline Phosphatase 33 Total Protein 6.2 Albumin 3.2 Lipase 272 Urine Color YELLOW Urine Turbidity CLEAR Urine pH 6.0 Urine Specific [place] GREATER THAN 1.050 Urine Protein 30 Urine Glucose (UA) NEG Urine Ketones NEG Urine Occult Blood NEG Urine Nitrite NEG Urine Bilirubin NEG Urine Urobilinogen 2.0 Urine Leukocyte Esterase MOD Urine RBC 2 Urine WBC 11 Urine Squamous Epithelial 2 Cells Urine Transitional Epithelial <1 Cells Urine Renal Epithelial Cells <1 Urine Hyaline Casts 1 Urine Mucus FEW Microscopic Urinalysis Comment CULTURE INDICATED Date/Time Procedure Status Source Growth 04/23/17 04:05 Urine Culture Received Urine Random Urine Pending Result Diagram: 04/23/17 0005 04/23/17 0005 Imaging Last 24 hours Impressions Abdomen/Pelvis CT 04/23/17 0000 Signed Impressions: Service Date/Time: April 03:14 - CONCLUSION: 1. There are multiple moderately distended proximal and mid small bowel loops with a transition zone in the mid to distal small bowel characteristic of a small bowel obstruction. 2. There is a small amount of free fluid in the abdomen. No evidence of free air. 3. Stable left lobe hepatic cysts. Romie Johns MD Course in er placed NG tube surgery consulted Assessment and Plan Problem List: (1) Bowel obstruction Status: Acute Plan: SBO will place NG tube surgical evaluation and further plan pending evaluation. (2) Elevated WBC count Status: Acute Plan: will give fluids obtain blood culture xrays follow up lab Assessment and Plan as above further plan as case develops Code Status full Discussed Condition With patient Physician Certification 2 Midnight Certification Type: Admission for Inpatient Services Order for Inpatient Services The services are ordered in accordance with Medicare regulations or non- Medicare payer requirements, as applicable. In the case of services not specified as inpatient-only, they are appropriately provided as inpatient services in accordance with the 2-midnight benchmark. Estimated LOS (days): 3 3 days is the estimated time the patient will need to remain in the hospital, assuming treatment plan goals are met and no additional complications. Post-Hospital Plan: Not yet determined Problem Qualifiers (1) Bowel obstruction: Qualified Code: K56.60 - Intestinal obstruction, unspecified type Wilber Mcdermott MD Apr 23, 2017 13:08
[2017-04-23] MEDS ORDERED: ONDANSETRON HCL 4 MG/2 ML VIAL IV PUSH PRN (13:15)
--- NOTE | 2017-04-23 13:17 | PD.CONS ---
HPI Service General Surgery Consult Requested By Dr. Medellni Reason for Consult SBO Primary Care Physician Wilber Mcdermott MD History of Present Illness 61 yo F abdominal pain x 5 days, associated with vomiting over last 1-2 days. No BM or flatus for a number of days. PSH includes sigmoid colectomy, hysterectomy, ovarian cystectomy, lap devon, thyroidectomy. She has a h/o of a partial small bowel obstruction about two years which resolved with conservative management. She c/o severe pain and wants the pain to end as soon as possible. She does not take blood thinners. She is on a fentanyl patch and takes oxycodone at home. On methotrexate for RA. Review of Systems Constitutional: DENIES: Fever, Chills Eyes: DENIES: Eye inflammation, Eye pain Ears, nose, mouth, throat: DENIES: Throat pain, Ear Pain Cardiovascular: DENIES: Chest pain, Palpitations Gastrointestinal: COMPLAINS OF: Abdominal pain, Vomiting Musculoskeletal: COMPLAINS OF: Joint pain Integumentary: DENIES: Pruritus, Rash Hematologic/lymphatic: COMPLAINS OF: Bruising Neurologic: DENIES: Paresthesias, Seizures Past Family Social History Past Medical History Colon cancer, T1No, s/p surgical resection in 2004 Hypertension Diabetes mellitus, type 2, insulin dependent Rheumatoid arthritis Asthma NICK DVT Pulmonary embolism Depression GERD Hyperlipidemia Past Surgical History Bilateral breast reduction Lap cholecystectomy sigmoid colectomy Hysterectomy Salpingectomy/Oophorectomy Thyroidectomy and radioactive iodine Tubal ligation Reported Medications Reported Meds & Active Scripts Active Oxycodone (Oxycodone HCl) 10 Mg Tab 10 Mg PO Q6H PRN Xanax (Alprazolam) 1 Mg Tab 1 Mg PO Q8H PRN Ambien (Zolpidem Tartrate) 10 Mg Tab 10 Mg PO HS PRN Fentanyl Patch 72 HR (Fentanyl) 50 Mcg/Hr Patch 50 Mcg T-DERMAL Q72H Remove old patch when new one placed. Reported Zoloft (Sertraline HCl) 25 Mg Tab 25 Mg PO DAILY Lisinopril 40 Mg Tab 40 Mg PO DAILY Ranitidine (Ranitidine HCl) 150 Mg Cap 150 Mg PO BID Levothyroxine (Levothyroxine Sodium) 125 Mcg Tab 125 Mcg PO QOD Calcitriol 0.25 Mcg Cap 0.25 Mcg PO BID Methotrexate 2.5 Mg Tab 20 Mg PO Q7D Diltiazem HCl ER (Diltiazem HCl Coated Beads) 300 Mg Cap 1 Tab PO DAILY Atorvastatin (Atorvastatin Calcium) 80 Mg Tab 80 Mg PO HS Allergies: Coded Allergies: Adhesives (Verified Allergy, Severe, SKIN BREAKDOWN, 04/23/17) Codeine (Verified Allergy, Severe, RASH, 04/23/17) Protonix (Verified Allergy, Severe, RASH, 04/23/17) Sulfa (Verified Allergy, Severe, 04/23/17) Active Ordered Medications Current Medications Medications (Trade) Dose Ordered Sig/Zenon Route Start Time Stop Time Status Last Admin Sodium Chloride 2 ml 2 ml UNSCH PRN IV FLUSH 04/23/17 00:00 (NS 1000 ml Inj) 1,000 ml @ 125 mls/hr Q8H IV 04/23/17 04:00 04/23/17 04:40 (NS Flush) 2 ml BID IV FLUSH 04/23/17 09:00 (NS Flush) 2 ml UNSCH PRN IVF 04/23/17 04:30 (Dilaudid Pf Inj) 1 mg Q3H PRN IV 04/23/17 12:00 04/23/17 12:01 (Xanax) 1 mg Q8H PRN PO 04/23/17 13:00 UNV (Rocaltrol) 0.25 mcg BID PO 04/23/17 21:00 UNV (Synthroid) 125 mcg DAILY PO 04/24/17 09:00 UNV (Zoloft) 25 mg DAILY PO 04/24/17 09:00 UNV (Ambien) 10 mg HS PRN PO 04/23/17 13:00 UNV Non-Formulary Medication 40 mg DAILY PO 04/24/17 09:00 UNV Non-Formulary Medication 150 mg BID PO 04/23/17 21:00 UNV Diltiazem HCl 300 mg 300 mg DAILY PO 04/24/17 09:00 UNV (1/2 NS 1000 ml Inj) 1,000 ml @ 75 mls/hr [id number] IV 04/23/17 12:55 UNV (NS Flush) 2 ml UNSCH PRN IV FLUSH 04/23/17 13:00 UNV (NS Flush) 2 ml BID IV FLUSH 04/23/17 21:00 UNV (Zofran Inj) 4 mg Q6H PRN IVP 04/23/17 13:00 UNV (Narcan Inj) 0.4 mg UNSCH PRN IV 04/23/17 13:00 UNV (Fadumo-Colace) 1 tab BID PO 04/23/17 21:00 UNV (Milk Of Magnesia Liq) 30 ml Q12H PRN PO 04/23/17 13:00 UNV (Senokot) 17.2 mg Q12H PRN PO 04/23/17 13:00 UNV (Dulcolax Supp) 10 mg DAILY PRN RECTAL 04/23/17 13:00 UNV (Lactulose Liq) 30 ml DAILY PRN PO 04/23/17 13:00 UNV Family History NC Social History No tobacco ETOH or drug use. Physical Exam Vital Signs Vital Signs Date Time Temp Pulse Resp B/P Pulse Ox O2 Delivery O2 Flow Rate FiO2 04/23/17 12:45 100.0 87 20 184/84 97 04/23/17 08:56 92 21 04/23/17 07:34 98.5 92 18 161/74 96 04/23/17 05:37 95 24 163/77 95 04/23/17 04:24 100 04/23/17 01:39 89 20 169/79 100 Room Air 04/22/17 23:55 97.9 84 20 205/89 Physical Exam GENERAL: Awake and alert. Appears uncomfortable. HEAD: Normocephalic. Atraumatic. EYES: Pupils equal round and reactive to light bilaterally. No scleral icterus. CHEST: Lungs clear to auscultation bilaterally with no wheezing or rhonchi. No respiratory distress. CARDIOVASCULAR: Regular rate and rhythm. ABDOMEN: Round. Midline scar. Bilateral lower abdominal wall ecchymoses. Diffuse tenderness to palpation worse in bilateral lower abdomen. No true rebound or guarding. SKIN: Cool, dry, nonjaundiced. Multiple small ecchymoses along both arms. Laboratory Laboratory Tests Test 04/23/17 04/23/17 00:05 04:05 White Blood Count 19.5 Red Blood Count 4.51 Hemoglobin 13.8 Hematocrit 42.1 Mean Corpuscular Volume 93.4 Mean Corpuscular Hemoglobin 30.6 Mean Corpuscular Hemoglobin 32.8 Concent Red Cell Distribution Width 16.5 Platelet Count 293 Mean Platelet Volume 8.0 Neutrophils (%) (Auto) 86.6 Lymphocytes (%) (Auto) 6.2 Monocytes (%) (Auto) 6.8 Eosinophils (%) (Auto) 0.2 Basophils (%) (Auto) 0.2 Neutrophils # (Auto) 16.9 Lymphocytes # (Auto) 1.2 Monocytes # (Auto) 1.3 Eosinophils # (Auto) 0.0 Basophils # (Auto) 0.0 CBC Comment DIFF FINAL Differential Comment Sodium Level 143 Potassium Level 3.8 Chloride Level 107 Carbon Dioxide Level 22.5 Anion Gap 14 Blood Urea Nitrogen 16 Creatinine 1.09 Estimat Glomerular Filtration 51 Rate Random Glucose 149 Calcium Level 8.5 Total Bilirubin 0.5 Aspartate Amino Transf 17 (AST/SGOT) Alanine Aminotransferase 29 (ALT/SGPT) Alkaline Phosphatase 33 Total Protein 6.2 Albumin 3.2 Lipase 272 Urine Color YELLOW Urine Turbidity CLEAR Urine pH 6.0 Urine Specific [place] GREATER THAN 1.050 Urine Protein 30 Urine Glucose (UA) NEG Urine Ketones NEG Urine Occult Blood NEG Urine Nitrite NEG Urine Bilirubin NEG Urine Urobilinogen 2.0 Urine Leukocyte Esterase MOD Urine RBC 2 Urine WBC 11 Urine Squamous Epithelial 2 Cells Urine Transitional Epithelial <1 Cells Urine Renal Epithelial Cells <1 Urine Hyaline Casts 1 Urine Mucus FEW Microscopic Urinalysis Comment CULTURE INDICATED Date/Time Procedure Status Source Growth 04/23/17 04:05 Urine Culture Received Urine Random Urine Pending Result Diagram: 04/23/17 0005 04/23/17 0005 Imaging Last Impressions Chest X-Ray 04/23/17 0000 Signed Impressions: Service Date/Time: April 13:23 - CONCLUSION: Normal examination except for some platelike atelectasis right lung base. Gallito Barr MD Abdomen/Pelvis CT 04/23/17 0000 Signed Impressions: Service Date/Time: April 03:14 - CONCLUSION: 1. There are multiple moderately distended proximal and mid small bowel loops with a transition zone in the mid to distal small bowel characteristic of a small bowel obstruction. 2. There is a small amount of free fluid in the abdomen. No evidence of free air. 3. Stable left lobe hepatic cysts. Romie Johns MD Abdomen X-Ray 04/23/17 0000 Signed Impressions: Service Date/Time: April 13:19 - CONCLUSION: No evidence of obstruction. NG tube is within the stomach. Gallito Barr MD Assessment and Plan Assessment and Plan 61 yo F with SBO, appears high grade Attempt conservative management of SBO, although there is a good chance she will require operation in the next few days. I will follow closely. Repeat labs in am. If no flatus tomorrow will likely plan to proceed to OR for lysis of adhesions. D/w Dr. Disla. FabioReza MD Apr 23, 2017 13:17
--- NOTE | 2017-04-23 13:59 | RADRPT ---
EXAM DATE/TIME: 04/23/2017 13:19 [facility] COMPARISON: No previous studies available for comparison. INDICATIONS : Confirm nasogastric tube placement. MEDICAL HISTORY : Carcinoma, colon. Hypertension. Gastroesophageal reflux disease.Diabetes. Thyroid cancer. SURGICAL HISTORY : Cholecystectomy. Tubal ligation. Hysterectomy. Sigmoid Colectomy. Thyroidectomy ENCOUNTER: Initial ACUITY: 1 day PAIN SCORE: 10/10 LOCATION: [facility]. FINDINGS: Examination of the abdomen demonstrates a normal bowel gas pattern. Nasogastric tube within the stoma ch. Clips suggest cholecystectomy. No free air is identified. No organomegaly is evident. Osseous s tructures are intact. CONCLUSION: No evidence of obstruction. NG tube is within the stomach. Gallito Barr MD on April 23, 2017 at 13:57 Board Certified Radiologist. This report was verified electronically.
--- NOTE | 2017-04-23 14:00 | RADRPT ---
EXAM DATE/TIME: 04/23/2017 13:23 [facility] COMPARISON: No previous studies available for comparison. INDICATIONS : Elevated white blood cells. MEDICAL HISTORY : Carcinoma, colon. Hypertension. Gastroesophageal reflux disease.Diabetes. Thyroid cancer. SURGICAL HISTORY : Cholecystectomy. Tubal ligation. Hysterectomy. Sigmoid Colectomy. Thyroidectomy ENCOUNTER: Initial ACUITY: 1 day PAIN SCORE: 10/10 LOCATION: chest FINDINGS: A single view of the chest demonstrates the lungs to be symmetrically aerated without evidence of mas s, infiltrate or effusion except for some platelike atelectasis right lung base. NG tube is unremarka ble in excellent position. The cardiomediastinal contours are unremarkable. Osseous structures are i ntact. CONCLUSION: Normal examination except for some platelike atelectasis right lung base. Gallito Barr MD on April 23, 2017 at 13:58 Board Certified Radiologist. This report was verified electronically.
[2017-04-23] MEDS: ONDANSETRON HCL 4 MG/2 ML VIAL IVP PRN ×2 (14:27→21:05)
[2017-04-23] MEDS ORDERED: PILL SPLITTER OTHER PRN (14:30)
[2017-04-23] MEDS: cefTRIAXone INJ 1,000 MG in SODIUM CHLORIDE 0.9% INJ 100 ML IV SCH (15:23)
[2017-04-23] MEDS: SODIUM CHLOR 0.45% 1000 ML INJ 1,000 ML IV SCH (15:24)
[2017-04-23] MEDS: HYDROmorphone HCL PF 1 MG/ML VIAL IV PUSH PRN ×2 (18:18→21:02)
[2017-04-23] MEDS ORDERED: GLUCAGON 1 MG/ML VIAL OTHER PRN (20:15)
[2017-04-23] MEDS ORDERED: DEXTROSE 50% IN WATER 50 ML VIAL(D50) IV PRN (20:15)
[2017-04-23] MEDS: INSULIN ASPART SUPPLEMENTAL SCALE SQ SCH (21:00)
[2017-04-23] MEDS: fentaNYL 50 MCG/HR PATCH T-DERMAL SCH (21:01)
[2017-04-23] MEDS: SODIUM CHLORIDE 0.9% FLUSH 10 ML FLUSH IV FLUSH SCH (21:05)
[2017-04-23] MEDS: FAMOTIDINE 20 MG TAB PO SCH (21:06)
[2017-04-23] MEDS: DOCUSATE SODIUM 50 MG/SENNA 8.6 MG TAB PO SCH (21:06)
[2017-04-23] MEDS: CALCITRIOL 0.25 MCG CAP PO SCH (21:06)
[2017-04-23] MEDS: ZOLPIDEM TARTRATE 10 MG TAB PO PRN (22:27)
[2017-04-23] MEDS: ALPRAZolam 1 MG TAB PO PRN (22:27)
[2017-04-23] MEDS: SODIUM CHLORIDE 0.9% FLUSH 10 ML FLUSH IV FLUSH PRN (23:14)
[2017-04-23] MEDS: MORPHINE SULFATE 4 MG/ML INJ IV PUSH PRN (23:14)
[2017-04-24] VITALS: BP 141/76; PULSE 91; RESP 17; TEMP 98.5; O2SAT 94
[2017-04-24] MEDS: MORPHINE SULFATE 4 MG/ML INJ IV PUSH PRN ×5 (02:18→14:22)
[2017-04-24] MEDS: SODIUM CHLORIDE 0.9% FLUSH 10 ML FLUSH IV FLUSH PRN (02:18)
[2017-04-24] MEDS: ONDANSETRON HCL 4 MG/2 ML VIAL IVP PRN ×2 (04:42→11:35)
[2017-04-24] MEDS: SODIUM CHLOR 0.45% 1000 ML INJ 1,000 ML IV SCH (04:43)
[2017-04-24] MEDS: LEVOTHYROXINE SODIUM 125 MCG TAB PO SCH (04:43)
[2017-04-24] MEDS: INSULIN ASPART SUPPLEMENTAL SCALE SQ SCH ×4 (04:43→21:00)
[2017-04-24 05:25] LABS: AUTOMATED NEUTROPHIL # 7.2 TH/MM3 (1.8-7.7); BASOPHIL % 0.3 % (0.0-2.0); EOSINOPHIL # 0.1 TH/MM3 (0-0.4); EOSINOPHIL % 0.8 % (0.0-4.0); HEMATOCRIT 39.2 % (35.0-46.0); HEMO FLAGS DIFF FINAL; LYMPHOCYTE # 0.8 TH/MM3 (1.0-4.8); MEAN CELL VOLUME 92.3 FL (80.0-100.0); MEAN CORPUSCULAR HEMOGLOBIN 31.4 PG (27.0-34.0); NEUT % 85.9 % (16.0-70.0); PLATELET COUNT 222 TH/MM3 (150-450); RED BLOOD COUNT 4.24 MIL/MM3 (4.00-5.30); RED CELL DISTRIBUTION WIDTH 16.9 % (11.6-17.2); WHITE BLOOD COUNT 8.4 TH/MM3 (4.0-11.0)
[2017-04-24 05:56] LABS: ALKALINE PHOSPHATASE 27 U/L (45-117); ALT (GPT) 23 U/L (10-53); ANION GAP 12 MEQ/L (5-15); AST (GOT) 14 U/L (15-37); BICARBONATE 22.4 MEQ/L (21.0-32.0); BLOOD UREA NITROGEN 24 MG/DL (7-18); CHLORIDE 108 MEQ/L (98-107); GLOMERULAR FILTRATION RATE 61 ML/MIN (>89); POTASSIUM 3.7 MEQ/L (3.5-5.1); SODIUM (NA) 142 MEQ/L (136-145); TOTAL BILIRUBIN ADULT 0.5 MG/DL (0.2-1.0)
--- NOTE | 2017-04-24 07:47 | HHI.PR ---
Subjective Subjective Notes Persistent pain, not improving. No flatus. NG 1200 cc output. Objective Vitals/I&O Vital Signs Date Time Temp Pulse Resp B/P Pulse Ox O2 Delivery O2 Flow Rate FiO2 04/24/17 00:00 98.5 91 17 141/76 94 04/23/17 08:56 21 04/23/17 01:39 Room Air Labs Laboratory Tests Test 04/24/17 04:36 White Blood Count 8.4 Red Blood Count 4.24 Hemoglobin 13.3 Hematocrit 39.2 Mean Corpuscular Volume 92.3 Mean Corpuscular Hemoglobin 31.4 Mean Corpuscular Hemoglobin 34.0 Concent Red Cell Distribution Width 16.9 Platelet Count 222 Mean Platelet Volume 8.5 Neutrophils (%) (Auto) 85.9 Lymphocytes (%) (Auto) 9.0 Monocytes (%) (Auto) 4.0 Eosinophils (%) (Auto) 0.8 Basophils (%) (Auto) 0.3 Neutrophils # (Auto) 7.2 Lymphocytes # (Auto) 0.8 Monocytes # (Auto) 0.3 Eosinophils # (Auto) 0.1 Basophils # (Auto) 0.0 CBC Comment DIFF FINAL Differential Comment Sodium Level 142 Potassium Level 3.7 Chloride Level 108 Carbon Dioxide Level 22.4 Anion Gap 12 Blood Urea Nitrogen 24 Creatinine 0.93 Estimat Glomerular Filtration 61 Rate Random Glucose 148 Calcium Level 7.9 Total Bilirubin 0.5 Aspartate Amino Transf 14 (AST/SGOT) Alanine Aminotransferase 23 (ALT/SGPT) Alkaline Phosphatase 27 Total Protein 5.4 Albumin 2.6 Date/Time Procedure Status Source Growth 04/23/17 04:05 Urine Culture Received Urine Random Urine Pending Radiology Last Impressions Chest X-Ray 04/23/17 0000 Signed Impressions: Service Date/Time: April 13:23 - CONCLUSION: Normal examination except for some platelike atelectasis right lung base. Gallito Barr MD Abdomen/Pelvis CT 04/23/17 0000 Signed Impressions: Service Date/Time: April 03:14 - CONCLUSION: 1. There are multiple moderately distended proximal and mid small bowel loops with a transition zone in the mid to distal small bowel characteristic of a small bowel obstruction. 2. There is a small amount of free fluid in the abdomen. No evidence of free air. 3. Stable left lobe hepatic cysts. Romie J. Siragusa, MD Abdomen X-Ray 04/23/17 0000 Signed Impressions: Service Date/Time: April 13:19 - CONCLUSION: No evidence of obstruction. NG tube is within the stomach. Gallito Barr MD Narrative Exam uncomfortable ng in place 1200cc output Abd: mod distention, mod- severe diffuse ttp A/P Assessment and Plan 61 yo F with SBO not resolving Plan to proceed to OR for lysis of adhesions, possible bowel resection. Discussed in detail with patient and she desires surgery ELSA. Fabio,Reza QUIROZ Apr 24, 2017 07:47
[2017-04-24 08:00] VITALS: BP 172/84; PULSE 89; RESP 20; TEMP 99.2; O2SAT 95
[2017-04-24] MEDS ORDERED: metroNIDAZOLE 500 MG INJ 100 ML IV SCH (08:00)
[2017-04-24] MEDS: SERTRALINE HCL 50 MG TAB PO SCH (08:26)
[2017-04-24] MEDS: CALCITRIOL 0.25 MCG CAP PO SCH ×2 (08:26→21:46)
[2017-04-24] MEDS: FAMOTIDINE 20 MG TAB PO SCH (08:27)
[2017-04-24] MEDS: DOCUSATE SODIUM 50 MG/SENNA 8.6 MG TAB PO SCH ×2 (08:27→21:46)
[2017-04-24] MEDS: DILTIAZEM-CD 300 MG CAP ER PO SCH (08:27)
[2017-04-24] MEDS: LISINOPRIL 20 MG TAB PO SCH (08:28)
[2017-04-24] MEDS: SODIUM CHLORIDE 0.9% FLUSH 10 ML FLUSH IV FLUSH SCH ×2 (08:30→21:52)
[2017-04-24] MEDS ORDERED: PROPOFOL 200 MG/20 ML AMP IV ONE (10:39)
[2017-04-24] MEDS ORDERED: LACTATED RINGER'S 1000 ML INJ 3,000 ML IV ONE (10:39)
[2017-04-24] MEDS ORDERED: ONDANSETRON HCL 4 MG/2 ML VIAL IV PUSH ONE (10:39)
[2017-04-24] MEDS ORDERED: ACETAMINOPHEN 1000 MG/100 ML VIAL IV ONE (10:39)
[2017-04-24] MEDS ORDERED: SODIUM CHLOR 0.9% 250 ML INJ 250 ML IV ONE (10:40)
[2017-04-24 11:33] VITALS: O2SAT 94
[2017-04-24 12:00] VITALS: BP 191/86; PULSE 84; RESP 20; TEMP 97.8; O2SAT 99
[2017-04-24] MEDS ORDERED: BUPIVACAINE/EPINEPHRINE 0.25% 50 ML VIAL ONE (14:54)
[2017-04-24] MEDS: cefTRIAXone INJ 1,000 MG in SODIUM CHLORIDE 0.9% INJ 100 ML IV SCH (15:00)
[2017-04-24] MEDS ORDERED: SUGAMMADEX SODIUM 200 MG/2 ML VIAL IV PUSH ONE ×2 (15:36)
--- NOTE | 2017-04-24 17:17 | HHI.PR ---
Subjective Remarks PT IN SURGERY WILL SEE TOMORROW. Objective Vitals Vital Signs Date Time Temp Pulse Resp B/P Pulse Ox O2 Delivery O2 Flow Rate FiO2 04/24/17 12:00 97.8 84 20 191/86 99 04/24/17 11:33 94 04/24/17 08:00 99.2 89 20 172/84 95 04/24/17 00:00 98.5 91 17 141/76 94 04/23/17 20:00 98.1 94 17 181/84 96 04/23/17 04/23/17 04/24/17 14:59 22:59 06:59 Intake Total 189 ml 929 ml Output Total 1200 ml Balance 189 ml -271 ml Intake Oral 0 ml 240 ml IV Total 189 ml 689 ml Output Gastric Drainage Total 1200 ml # Voids 1 2 Result Diagram: 04/24/17 0436 04/24/17 0436 Imaging Last 24 hours Impressions Abdomen/Pelvis CT 04/23/17 0000 Signed Impressions: Service Date/Time: April 03:14 - CONCLUSION: 1. There are multiple moderately distended proximal and mid small bowel loops with a transition zone in the mid to distal small bowel characteristic of a small bowel obstruction. 2. There is a small amount of free fluid in the abdomen. No evidence of free air. 3. Stable left lobe hepatic cysts. Romie Johns MD A/P Problem List: (1) Bowel obstruction Status: Acute Plan: - Pt in OR - will see pt 04/25 (2) Elevated WBC count Status: Acute Plan: will give fluids obtain blood culture xrays follow up lab Problem Qualifiers (1) Bowel obstruction: Qualified Code: K56.60 - Intestinal obstruction, unspecified type Amadou Ballesteros DO Apr 24, 2017 17:17
[2017-04-24 17:18] VITALS: O2SAT 99
[2017-04-24] MEDS ORDERED: diphenhydrAMINE HCL 50 MG/ML VIAL IV PRN (18:15)
[2017-04-24] MEDS ORDERED: BENZOCAINE 20% ORAL SPR 60 ML CAN MT PRN (18:15)
[2017-04-24] MEDS ORDERED: SODIUM CHLORIDE 0.9% FLUSH 10 ML FLUSH IV FLUSH PRN (18:15)
[2017-04-24] MEDS ORDERED: Post-op Orders (for Pharmacy) MISC XX ONE (18:15)
[2017-04-24] MEDS ORDERED: NALOXONE HCL 0.4 MG/ML AMP IV PRN ×2 (18:15)
[2017-04-24] MEDS ORDERED: ONDANSETRON HCL 4 MG/2 ML VIAL IV PUSH PRN (18:15)
--- NOTE | 2017-04-24 18:22 | PD.OP ---
cc: Reza Mccarthy MD Operative Report Date of Surgery: Apr 24, 2017 Preoperative Diagnosis: (1) Bowel obstruction Postoperative Diagnosis: (1) Bowel obstruction Procedure: Laparoscopic converted to open lysis of adhesions (1.5 hrs) Anesthesia: CASA Surgeon: Reza Mccarthy Sulfur Chloride Operator(s): Bing Meeks MSIII Operation and Findings: Estimated blood loss: 50 cc Complications: None apparent Operative findings: The patient had adhesions from the omentum to the anterior abdominal wall along the entire midline. These were taken down laparoscopically. There was dilated proximal small bowel with evidence of inflammation but no ischemia. I was unable to identify and correct the small bowel obstruction laparoscopically and therefore performed a midline laparotomy incision. The patient had multiple small bowel to small bowel adhesions throughout the entire small intestine. At one of these areas there was a clear transition point from dilated to decompressed small bowel with soft solid stool present. Procedure in detail: The patient was taken to the operating room and placed in the supine position. Gen. endotracheal anesthesia was induced. The abdomen was prepped and draped in usual sterile fashion and a surgical timeout was performed to verify correct patient procedure and site. The patient already had an NG tube in place. The patient had a March placed. She received appropriate perioperative antibiotics. In the right upper abdomen a 5 mm incision was made and a 5 mm port placed under direct Visualization. The abdomen was insufflated to 15 mmHg with CO2 gas which the patient tolerated well. Another 5 mm port was placed in the left upper abdomen. There were dense omental adhesions to the anterior abdominal wall all the way from the falciform to the bladder. 2 more 5 mm ports were placed in the left abdomen and the adhesions were taken down sharply. There was evidence of significant only dilated and somewhat inflamed small bowel and also decompressed small bowel. I was unable to find the area of obstruction laparoscopically and therefore a midline laparotomy incision was made. There were many adhesions between small bowel to small bowel throughout the small intestine with areas of sharp turns in many places. One of these areas there was a clear transition point from the dilated proximal small bowel to decompressed distal small bowel. The adhesions between the small bowel in this area were lysed as well as at another distal portion. The small intestine was milked to be sure that the soft formed stool would pass the area of stricture. 2 serosal tears were repaired with 3-0 silk suture. There were many further adhesions present between the small bowel and I elected not to lyse these adhesions as they were not causing any apparent problems. At this point the fascia was closed with a running #1 looped PDS suture. The wound was irrigated and the skin closed with wide skin stapler. Skin at the port sites was closed with wide skin stapler as well. Dressings were applied. The patient tolerated the procedure was extubated and taken to PACU in stable condition. Reza Mccarthy MD Apr 24, 2017 18:22
[2017-04-24] MEDS ORDERED: *morphine SULFATE 8 MG/ML PERIprocedure ONLY ONE ×3 (18:24→19:25)
[2017-04-24] MEDS ORDERED: fentaNYL CITRATE 250 MCG/5 ML AMP ONE (18:35)
[2017-04-24] MEDS ORDERED: MORPHINE SULFATE 4 MG/ML INJ ONE (18:36)
[2017-04-24] MEDS ORDERED: DO NOT ADM ANY ANTICOAGULANT DRUGS PRN (18:40)
[2017-04-24] MEDS: SODIUM CHLOR 0.9% 1000 ML INJ 1,000 ML IV SCH ×2 (18:50→22:55)
[2017-04-24] MEDS: ACETAMINOPHEN 1000 MG/100 ML VIAL IV SCH (19:00)
[2017-04-24] MEDS: HYDROmorphone HCL PCA 6 MG/30 ML IV SCH ×2 (19:05→23:38)
[2017-04-24 20:00] VITALS: BP 132/70; PULSE 70; RESP 18; TEMP 98.6; O2SAT 96
[2017-04-24] MEDS: ZOLPIDEM TARTRATE 10 MG TAB PO PRN (21:46)
[2017-04-24] MEDS: PCA - TOTAL MG DILAUDID DELIVERED PER SHIFT OTHER SCH (21:53)
[2017-04-24] MEDS: FAMOTIDINE 20 MG/2 ML VIAL IV PUSH SCH (22:50)
[2017-04-24] MEDS: metroNIDAZOLE 500 MG INJ 100 ML IV SCH (22:54)
[2017-04-25] VITALS (9 sets, daily range): BP systolic 123–206; BP diastolic 62–86; PULSE 65–85; RESP 16–19; TEMP 96.5–97.6; O2SAT 94–99
[2017-04-25] MEDS: ACETAMINOPHEN 1000 MG/100 ML VIAL IV SCH ×3 (02:21→14:29)
[2017-04-25 04:47] LABS: AUTOMATED NEUTROPHIL # 5.6 TH/MM3 (1.8-7.7); BASOPHIL % 0.3 % (0.0-2.0); EOSINOPHIL % 0.5 % (0.0-4.0); HEMATOCRIT 36.3 % (35.0-46.0); HEMO FLAGS DIFF FINAL; LYMPH % 11.4 % (9.0-44.0); LYMPHOCYTE # 0.8 TH/MM3 (1.0-4.8); MEAN CELL VOLUME 94.5 FL (80.0-100.0); MEAN CORPUSCULAR HEMOGLOBIN 31.3 PG (27.0-34.0); MEAN CORPUSCULAR HGB CONC 33.2 % (32.0-36.0); MONO % 7.1 % (0.0-8.0); NEUT % 80.7 % (16.0-70.0); PLATELET COUNT 199 TH/MM3 (150-450); RED BLOOD COUNT 3.84 MIL/MM3 (4.00-5.30); RED CELL DISTRIBUTION WIDTH 16.6 % (11.6-17.2)
[2017-04-25] MEDS: LEVOTHYROXINE SODIUM 125 MCG TAB PO SCH (05:03)
[2017-04-25] MEDS: INSULIN ASPART SUPPLEMENTAL SCALE SQ SCH ×4 (05:06→20:14)
[2017-04-25] MEDS: PCA - TOTAL MG DILAUDID DELIVERED PER SHIFT OTHER SCH ×3 (05:13→22:00)
[2017-04-25] MEDS: SODIUM CHLOR 0.9% 1000 ML INJ 1,000 ML IV SCH ×3 (05:14→20:13)
[2017-04-25] MEDS: HYDROmorphone HCL PCA 6 MG/30 ML IV SCH ×4 (05:25→17:41)
[2017-04-25 05:35] LABS: BICARBONATE 21.8 MEQ/L (21.0-32.0); MAGNESIUM 1.8 MG/DL (1.5-2.5); POTASSIUM 3.8 MEQ/L (3.5-5.1)
[2017-04-25 06:01] LABS: CALCIUM-PROTEIN CORRECTED 8.1 MG/DL (8.5-10.1)
[2017-04-25] MEDS: metroNIDAZOLE 500 MG INJ 100 ML IV SCH ×2 (08:00→17:38)
[2017-04-25] MEDS: DOCUSATE SODIUM 50 MG/SENNA 8.6 MG TAB PO SCH ×2 (09:00→20:13)
[2017-04-25] MEDS: SODIUM CHLORIDE 0.9% FLUSH 10 ML FLUSH IV FLUSH SCH ×2 (09:00→20:14)
[2017-04-25] MEDS: FAMOTIDINE 20 MG/2 ML VIAL IV PUSH SCH ×2 (09:00→20:13)
[2017-04-25] MEDS: SERTRALINE HCL 50 MG TAB PO SCH (09:03)
[2017-04-25] MEDS: CALCITRIOL 0.25 MCG CAP PO SCH ×2 (09:03→20:13)
[2017-04-25] MEDS: DILTIAZEM-CD 300 MG CAP ER PO SCH (09:04)
[2017-04-25] MEDS: LISINOPRIL 20 MG TAB PO SCH (09:04)
--- NOTE | 2017-04-25 11:50 | HHI.PR ---
Subjective Subjective Notes Post op pain, shiftman helps. No flatus. Stable. Objective Vitals/I&O Vital Signs Date Time Temp Pulse Resp B/P Pulse Ox O2 Delivery O2 Flow Rate FiO2 04/25/17 09:22 16 04/25/17 08:56 94 Nasal Cannula 3.00 04/25/17 08:00 97.3 73 152/73 04/24/17 17:18 Labs Laboratory Tests Test 04/25/17 03:30 White Blood Count 7.0 Red Blood Count 3.84 Hemoglobin 12.0 Hematocrit 36.3 Mean Corpuscular Volume 94.5 Mean Corpuscular Hemoglobin 31.3 Mean Corpuscular Hemoglobin 33.2 Concent Red Cell Distribution Width 16.6 Platelet Count 199 Mean Platelet Volume 8.3 Neutrophils (%) (Auto) 80.7 Lymphocytes (%) (Auto) 11.4 Monocytes (%) (Auto) 7.1 Eosinophils (%) (Auto) 0.5 Basophils (%) (Auto) 0.3 Neutrophils # (Auto) 5.6 Lymphocytes # (Auto) 0.8 Monocytes # (Auto) 0.5 Eosinophils # (Auto) 0.0 Basophils # (Auto) 0.0 CBC Comment DIFF FINAL Differential Comment Sodium Level 140 Potassium Level 3.8 Chloride Level 108 Carbon Dioxide Level 21.8 Anion Gap 10 Blood Urea Nitrogen 26 Creatinine 0.87 Estimat Glomerular Filtration 66 Rate Random Glucose 129 Calcium Level 6.7 Protein Corrected Calcium 8.1 Magnesium Level 1.8 Total Protein 4.4 Date/Time Procedure Status Source Growth 04/23/17 04:05 Urine Culture - Final Complete Urine Random Urine 50-100,000 CFU/ML MIXED DANIELE... Radiology Last Impressions Chest X-Ray 04/23/17 0000 Signed Impressions: Service Date/Time: April 13:23 - CONCLUSION: Normal examination except for some platelike atelectasis right lung base. Gallito Barr MD Abdomen/Pelvis CT 04/23/17 0000 Signed Impressions: Service Date/Time: April 03:14 - CONCLUSION: 1. There are multiple moderately distended proximal and mid small bowel loops with a transition zone in the mid to distal small bowel characteristic of a small bowel obstruction. 2. There is a small amount of free fluid in the abdomen. No evidence of free air. 3. Stable left lobe hepatic cysts. Romie Johns MD Abdomen X-Ray 04/23/17 0000 Signed Impressions: Service Date/Time: April 13:19 - CONCLUSION: No evidence of obstruction. NG tube is within the stomach. Gallito Barr MD Narrative Exam NAD ng in place 150cc output Abd: mod distention, Serous drainage LLQ incision, bandages in place, post op ttp March to gravity A/P Assessment and Plan 61 yo F POD 1 s/p lap-> open lysis of adhesions for SBO. STable post op. Clamp NG and start clears. Cont DIRECTOR [employer] add toradol. OOB. DVT proph: roni, scds. Fabio,Reza QUIROZ Apr 25, 2017 11:50
[2017-04-25] MEDS: KETOROLAC TROMETHAMINE 30 MG/ML (IVP) VIAL IV PUSH SCH ×3 (14:30→23:43)
[2017-04-25] MEDS: cefTRIAXone INJ 1,000 MG in SODIUM CHLORIDE 0.9% INJ 100 ML IV SCH (15:45)
[2017-04-25] MEDS: ENALAPRILAT 1.25 MG/ML VIAL IV PUSH PRN (15:48)
[2017-04-25] MEDS: ENOXAPARIN SODIUM 40 MG/0.4 ML SYRINGE SQ SCH (17:38)
--- NOTE | 2017-04-25 17:41 | HHI.PR ---
Subjective Remarks Pain controlled with COMMUNICATIONS FIELD TECHNICIAN. tolerating clears Objective Vitals Vital Signs Date Time Temp Pulse Resp B/P Pulse Ox O2 Delivery O2 Flow Rate FiO2 04/25/17 16:00 97.4 72 18 190/82 98 04/25/17 15:32 19 04/25/17 15:00 97.4 72 18 206/84 98 04/25/17 13:27 17 04/25/17 13:27 17 04/25/17 12:00 97.4 77 17 192/86 98 04/25/17 09:22 16 04/25/17 08:56 94 Nasal Cannula 3.00 04/25/17 08:00 97.3 73 16 152/73 96 04/25/17 06:02 18 04/25/17 05:25 18 04/25/17 05:13 18 04/25/17 04:00 96.5 65 18 148/67 97 04/25/17 00:00 97.5 85 19 123/62 99 04/24/17 23:38 18 04/24/17 21:53 18 04/24/17 20:00 98.6 70 18 132/70 96 04/24/17 20:00 90 16 129/61 94 Nasal Cannula 3 04/24/17 19:55 14 04/24/17 19:45 87 16 136/65 93 Nasal Cannula 3 04/24/17 19:30 90 16 135/63 94 Nasal Cannula 3 04/24/17 19:15 91 16 140/66 92 Nasal Cannula 3 04/24/17 19:05 14 04/24/17 19:00 88 16 140/59 92 Nasal Cannula 3 04/24/17 18:45 87 16 145/65 92 Nasal Cannula 3 04/24/17 18:30 84 16 139/65 93 Nasal Cannula 3 04/24/17 18:16 98.6 86 16 157/69 100 Simple Mask 04/24/17 04/24/17 04/25/17 14:59 22:59 06:59 Intake Total 626 ml 0 ml 1455 ml Output Total 10 ml 200 ml 0 ml Balance 616 ml -200 ml 1455 ml Intake Oral 0 ml 0 ml IV Total 626 ml 1455 ml Output Urine Total 50 ml Gastric Drainage Total 10 ml 150 ml 0 ml # Bowel Movements 0 Result Diagram: 04/25/17 0330 04/25/17 0330 Imaging Last Impressions Chest X-Ray 04/23/17 0000 Signed Impressions: Service Date/Time: April 13:23 - CONCLUSION: Normal examination except for some platelike atelectasis right lung base. Gallito Barr MD Abdomen/Pelvis CT 04/23/17 0000 Signed Impressions: Service Date/Time: April 03:14 - CONCLUSION: 1. There are multiple moderately distended proximal and mid small bowel loops with a transition zone in the mid to distal small bowel characteristic of a small bowel obstruction. 2. There is a small amount of free fluid in the abdomen. No evidence of free air. 3. Stable left lobe hepatic cysts. Romie Johns MD Abdomen X-Ray 04/23/17 0000 Signed Impressions: Service Date/Time: , April 23, 2017 13:19 - CONCLUSION: No evidence of obstruction. NG tube is within the stomach. Gallito Barr MD Objective Remarks GENERAL: This is a well-nourished, well-developed patient, in no apparent distress. CARDIOVASCULAR: Regular rate and rhythm without murmurs, gallops, or rubs. RESPIRATORY: Clear to auscultation. Breath sounds equal bilaterally. No wheezes , rales, or rhonchi. GASTROINTESTINAL: Abdomen soft, non-tender, nondistended. no bowel sounds yet MUSCULOSKELETAL: Extremities without clubbing, cyanosis, or edema. NEURO: Alert & Oriented x4 to person, place, time, situation. Moves all ext x4 A/P Problem List: (1) Bowel obstruction Status: Acute Plan: - POD #1 - Lap with ASHLEY performed by Dr. Mccarthy (04/24/17) - COMMUNICATIONS FIELD TECHNICIAN, toradol - lovenox - post op mgmt per General Surgery - supportive care (2) Elevated WBC count Status: Acute Plan: - resolved (3) HTN (hypertension) Status: Chronic Plan: - stable - lisinopril, cardizem CD (4) DM (diabetes mellitus) Status: Chronic Plan: - HgA1C 7.2 (04/17/17) - SSI Problem Qualifiers (1) Bowel obstruction: Qualified Code: K56.60 - Intestinal obstruction, unspecified type (2) HTN (hypertension): Qualified Code: I10 - Essential hypertension (3) DM (diabetes mellitus): Amadou Ballesteros DO Apr 25, 2017 17:41
[2017-04-25] MEDS: ACETAMIN 325 MG/BUTALBITAL 50 MG/CAFFEINE 40 MG TAB PO PRN (20:20)
[2017-04-25 21:41] LABS: BICARBONATE 22.6 MEQ/L (21.0-32.0); POTASSIUM 3.5 MEQ/L (3.5-5.1)
[2017-04-25] MEDS: ZOLPIDEM TARTRATE 10 MG TAB PO PRN (22:26)
[2017-04-25 23:00] LABS: CALCIUM-PROTEIN CORRECTED 7.5 MG/DL (8.5-10.1)
[2017-04-26] VITALS (7 sets, daily range): BP systolic 138–177; BP diastolic 63–79; PULSE 17–71; RESP 16–18; TEMP 96.4–98.6; O2SAT 95–98
[2017-04-26] MEDS: HYDROmorphone HCL PCA 6 MG/30 ML IV SCH ×5 (02:26→23:53)
[2017-04-26] MEDS: SODIUM CHLOR 0.9% 1000 ML INJ 1,000 ML IV SCH ×4 (03:27→16:08)
[2017-04-26] MEDS: KETOROLAC TROMETHAMINE 30 MG/ML (IVP) VIAL IV PUSH SCH ×4 (05:23→23:51)
[2017-04-26] MEDS: LEVOTHYROXINE SODIUM 125 MCG TAB PO SCH (05:23)
[2017-04-26] MEDS: INSULIN ASPART SUPPLEMENTAL SCALE SQ SCH ×4 (05:57→19:33)
[2017-04-26] MEDS: PCA - TOTAL MG DILAUDID DELIVERED PER SHIFT OTHER SCH ×3 (05:59→22:00)
[2017-04-26] MEDS: CALCITRIOL 0.25 MCG CAP PO SCH ×2 (08:50→19:24)
[2017-04-26] MEDS: DILTIAZEM-CD 300 MG CAP ER PO SCH (08:50)
[2017-04-26] MEDS: DOCUSATE SODIUM 50 MG/SENNA 8.6 MG TAB PO SCH ×2 (08:50→19:24)
[2017-04-26] MEDS: SODIUM CHLORIDE 0.9% FLUSH 10 ML FLUSH IV FLUSH SCH ×2 (08:50→19:25)
[2017-04-26] MEDS: LISINOPRIL 20 MG TAB PO SCH (08:50)
[2017-04-26] MEDS: SERTRALINE HCL 50 MG TAB PO SCH (08:50)
[2017-04-26] MEDS: FAMOTIDINE 20 MG/2 ML VIAL IV PUSH SCH ×2 (08:50→19:24)
[2017-04-26] MEDS ORDERED: FUROSEMIDE 20 MG TAB PO ONE (09:30)
[2017-04-26] MEDS ORDERED: POTASSIUM CHLORIDE 10 MEQ CAP PO ONE (09:30)
--- NOTE | 2017-04-26 11:07 | HHI.PR ---
Subjective Remarks passing flatus feels swollen and wants a dose of her prn lasix. Objective Vitals heart reg lung cta abd minimal bs/mild tender ext no edema Vital Signs Date Time Temp Pulse Resp B/P Pulse Ox O2 Delivery O2 Flow Rate FiO2 04/26/17 08:00 96.4 64 16 177/76 96 04/26/17 07:22 18 04/26/17 05:59 18 04/26/17 04:41 97.8 60 17 172/79 95 04/26/17 02:56 18 04/26/17 02:26 18 04/26/17 00:43 18 04/26/17 00:26 97.1 71 18 170/79 97 04/25/17 22:00 17 04/25/17 21:41 95 Nasal Cannula 3.00 04/25/17 21:20 17 04/25/17 20:03 97.6 72 17 175/80 95 04/25/17 17:41 15 04/25/17 16:00 97.4 72 18 190/82 98 04/25/17 15:00 97.4 72 18 206/84 98 04/25/17 13:27 17 04/25/17 13:27 17 04/25/17 12:00 97.4 77 17 192/86 98 04/25/17 04/25/17 04/26/17 15:00 23:00 07:00 Intake Total 0 ml 1620 ml 1591 ml Output Total 200 ml 500 ml 380 ml Balance -200 ml 1120 ml 1211 ml Intake Oral 0 ml 480 ml 240 ml IV Total 1140 ml 1351 ml Output Urine Total 200 ml 500 ml 380 ml # Bowel Movements 0 Result Diagram: 04/25/17 0330 04/25/172014 Imaging Last Impressions Chest X-Ray 04/23/17 0000 Signed Impressions: Service Date/Time: April 13:23 - CONCLUSION: Normal examination except for some platelike atelectasis right lung base. Gallito Barr MD Abdomen/Pelvis CT 04/23/17 0000 Signed Impressions: Service Date/Time: April 03:14 - CONCLUSION: 1. There are multiple moderately distended proximal and mid small bowel loops with a transition zone in the mid to distal small bowel characteristic of a small bowel obstruction. 2. There is a small amount of free fluid in the abdomen. No evidence of free air. 3. Stable left lobe hepatic cysts. Romie Johns MD Abdomen X-Ray 04/23/17 0000 Signed Impressions: Service Date/Time: , April 23, 2017 13:19 - CONCLUSION: No evidence of obstruction. NG tube is within the stomach. Gallito Barr MD A/P Problem List: (1) Bowel obstruction Status: Acute Plan: - POD #2 - Lap with ASHLEY performed by Dr. Mccarthy (04/24/17) - RN DOCUMENTATION, toradol ..wean per surgery - lovenox - diet per gen surgery. - oob/ambulate -d/c romero in AM (2) HTN (hypertension) Status: Chronic Plan: - stable - lisinopril, cardizem CD (3) DM (diabetes mellitus) Status: Chronic Plan: - HgA1C 7.2 (04/17/17) - SSI Problem Qualifiers (1) Bowel obstruction: Qualified Code: K56.60 - Intestinal obstruction, unspecified type (2) HTN (hypertension): Qualified Code: I10 - Essential hypertension (3) DM (diabetes mellitus): [place] Cardona MD Apr 26, 2017 11:06
[2017-04-26] MEDS ORDERED: cloNIDine HCL 0.1 MG TAB PO PRN (11:15)
[2017-04-26] MEDS: CALCIUM CARBONATE 1.25 GM (CA 500 MG) TAB PO SCH ×2 (11:33→19:24)
[2017-04-26] MEDS: ALPRAZolam 1 MG TAB PO PRN (13:03)
--- NOTE | 2017-04-26 13:50 | HHI.PR ---
Subjective Subjective Notes She still has abdominal pain but it is improving. Overall she is comfortable. She is passing flatus but has not yet had a bowel movement. She has been reluctant to walk around due to what she calls increased swelling, and she is very concerned about congestive heart failure due to her 's recent . Objective Vitals/I&O Vital Signs Date Time Temp Pulse Resp B/P Pulse Ox O2 Delivery O2 Flow Rate FiO2 04/26/17 12:00 97.3 177/75 97 04/25/17 21:41 Nasal Cannula 3.00 04/24/17 17:18 Labs Laboratory Tests Test 04/25/17 20:15 Sodium Level 140 Potassium Level 3.5 Chloride Level 109 Carbon Dioxide Level 22.6 Anion Gap 8 Blood Urea Nitrogen 24 Creatinine 0.87 Estimat Glomerular Filtration 66 Rate Random Glucose 97 Calcium Level 6.4 Protein Corrected Calcium 7.5 Total Protein 4.9 Date/Time Procedure Status Source Growth 04/23/17 04:05 Urine Culture - Final Complete Urine Random Urine 50-100,000 CFU/ML MIXED DANIELE... Radiology Last Impressions Chest X-Ray 04/23/17 0000 Signed Impressions: Service Date/Time: April 13:23 - CONCLUSION: Normal examination except for some platelike atelectasis right lung base. Gallito Barr MD Abdomen/Pelvis CT 04/23/17 0000 Signed Impressions: Service Date/Time: April 03:14 - CONCLUSION: 1. There are multiple moderately distended proximal and mid small bowel loops with a transition zone in the mid to distal small bowel characteristic of a small bowel obstruction. 2. There is a small amount of free fluid in the abdomen. No evidence of free air. 3. Stable left lobe hepatic cysts. Romie Johns MD Abdomen X-Ray 04/23/17 0000 Signed Impressions: Service Date/Time: April 13:19 - CONCLUSION: No evidence of obstruction. NG tube is within the stomach. Gallito Barr MD Cardiovascular: Regular Lungs: Clear Abdomen: Post-op tenderness Extremities: No edema A/P Assessment and Plan Impression: Postop day #2 from open lysis of adhesions. Overall stable and improving. She is returning to bowel function. She's been reluctant to move around due to concern regarding congestive heart failure. Plan: She was given Lasix earlier today by Dr. Hart. I ordered her March to be removed and have advanced her to a full liquid diet. Rome Castorena MD Apr 26, 2017 13:50
[2017-04-26] MEDS: ENOXAPARIN SODIUM 40 MG/0.4 ML SYRINGE SQ SCH (16:08)
[2017-04-26] MEDS: fentaNYL 50 MCG/HR PATCH T-DERMAL SCH (19:25)
[2017-04-26] MEDS: ZOLPIDEM TARTRATE 10 MG TAB PO PRN (22:47)
[2017-04-27] VITALS (11 sets, daily range): BP systolic 156–199; BP diastolic 72–88; PULSE 62–95; RESP 17–20; TEMP 96.2–98.7; O2SAT 95–97
[2017-04-27] MEDS: ENALAPRILAT 1.25 MG/ML VIAL IV PUSH PRN (02:09)
[2017-04-27] MEDS: SODIUM CHLOR 0.9% 1000 ML INJ 1,000 ML IV SCH ×2 (02:09→11:00)
[2017-04-27 05:50] LABS: BICARBONATE 18.8 MEQ/L (21.0-32.0); MAGNESIUM 1.6 MG/DL (1.5-2.5); POTASSIUM 3.8 MEQ/L (3.5-5.1)
[2017-04-27] MEDS: PCA - TOTAL MG DILAUDID DELIVERED PER SHIFT OTHER SCH ×3 (06:00→22:00)
[2017-04-27 06:01] LABS: CALCIUM-PROTEIN CORRECTED 7.6 MG/DL (8.5-10.1)
[2017-04-27] MEDS: KETOROLAC TROMETHAMINE 30 MG/ML (IVP) VIAL IV PUSH SCH ×4 (06:29→23:53)
[2017-04-27] MEDS: INSULIN ASPART SUPPLEMENTAL SCALE SQ SCH ×4 (06:30→22:14)
[2017-04-27] MEDS: LEVOTHYROXINE SODIUM 125 MCG TAB PO SCH (06:30)
[2017-04-27] MEDS: cloNIDine HCL 0.1 MG TAB PO PRN (06:30)
[2017-04-27] MEDS: SODIUM CHLORIDE 0.9% FLUSH 10 ML FLUSH IV FLUSH SCH ×2 (09:00→21:00)
[2017-04-27] MEDS: HYDROmorphone HCL PCA 6 MG/30 ML IV SCH ×3 (09:38→22:13)
[2017-04-27] MEDS: CALCIUM CARBONATE 1.25 GM (CA 500 MG) TAB PO SCH ×2 (09:39→22:16)
[2017-04-27] MEDS: LISINOPRIL 20 MG TAB PO SCH (09:39)
[2017-04-27] MEDS: DILTIAZEM-CD 300 MG CAP ER PO SCH (09:39)
[2017-04-27] MEDS: FAMOTIDINE 20 MG/2 ML VIAL IV PUSH SCH ×2 (09:39→22:16)
[2017-04-27] MEDS: SERTRALINE HCL 50 MG TAB PO SCH (09:39)
[2017-04-27] MEDS: CALCITRIOL 0.25 MCG CAP PO SCH ×2 (09:39→22:16)
[2017-04-27] MEDS: DOCUSATE SODIUM 50 MG/SENNA 8.6 MG TAB PO SCH ×2 (09:39→22:16)
[2017-04-27] MEDS: ACETAMIN 325 MG/BUTALBITAL 50 MG/CAFFEINE 40 MG TAB PO PRN (09:42)
--- NOTE | 2017-04-27 11:49 | HHI.PR ---
Subjective Subjective Notes Tolerating fulls and + flatus. She fell last night when going to the bathroom and says she may have hit her back on the chair. March removed this am. Objective Vitals/I&O Vital Signs Date Time Temp Pulse Resp B/P Pulse Ox O2 Delivery O2 Flow Rate FiO2 04/27/17 11:10 95 Nasal Cannula 1.00 04/27/17 09:38 17 04/27/17 08:00 96.9 62 156/72 04/24/17 17:18 Labs Laboratory Tests Test 04/27/17 04:30 Sodium Level 143 Potassium Level 3.8 Chloride Level 115 Carbon Dioxide Level 18.8 Anion Gap 9 Blood Urea Nitrogen 14 Creatinine 0.57 Estimat Glomerular Filtration 108 Rate Random Glucose 153 Calcium Level 6.3 Protein Corrected Calcium 7.6 Phosphorus Level 1.1 Magnesium Level 1.6 Total Protein 4.5 Date/Time Procedure Status Source Growth 04/23/17 04:05 Urine Culture - Final Complete Urine Random Urine 50-100,000 CFU/ML MIXED DANIELE... Radiology Last Impressions Chest X-Ray 04/23/17 0000 Signed Impressions: Service Date/Time: April 13:23 - CONCLUSION: Normal examination except for some platelike atelectasis right lung base. Gallito Barr MD Abdomen/Pelvis CT 04/23/17 0000 Signed Impressions: Service Date/Time: April 03:14 - CONCLUSION: 1. There are multiple moderately distended proximal and mid small bowel loops with a transition zone in the mid to distal small bowel characteristic of a small bowel obstruction. 2. There is a small amount of free fluid in the abdomen. No evidence of free air. 3. Stable left lobe hepatic cysts. Romie Johns MD Abdomen X-Ray 04/23/17 0000 Signed Impressions: Service Date/Time: April 13:19 - CONCLUSION: No evidence of obstruction. NG tube is within the stomach. Gallito Barr MD Narrative Exam NAD Abd: soft, inc c/d/i, serous drainage LLQ incision Back: nontender, no bruising A/P Assessment and Plan 61 yo F POD 3 s/p lap-> open lysis of adhesions for SBO. Stable post op. 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 PRN percocet. OOB. DVT proph: jacoby tamayo. Reza Mccarthy MD Apr 27, 2017 11:49
[2017-04-27] MEDS ORDERED: oxyCODONE/ACETAMINOPHEN 5 MG/325 MG TAB PO PRN ×2 (12:00)
[2017-04-27] MEDS ORDERED: FUROSEMIDE 20 MG TAB PO ONE (15:00)
[2017-04-27] MEDS ORDERED: POTASSIUM CHLORIDE 20 MEQ CONTROLLED RELEASE TAB PO ONE (15:00)
--- NOTE | 2017-04-27 15:00 | HHI.PR ---
Subjective Remarks tolerating food. no bm today. Objective Vitals heart reg lung cta abd s/nt/nabs ext no edema midline incision c/d/i Vital Signs Date Time Temp Pulse Resp B/P Pulse Ox O2 Delivery O2 Flow Rate FiO2 04/27/17 14:00 17 04/27/17 12:00 96.6 62 18 186/88 97 04/27/17 11:10 95 Nasal Cannula 1.00 04/27/17 09:38 17 04/27/17 08:00 96.9 62 17 156/72 97 04/27/17 06:00 18 04/27/17 04:13 96.4 65 17 183/82 95 04/27/17 02:58 95 Nasal Cannula 1.00 04/27/17 02:07 182/79 04/27/17 00:48 96.2 95 18 199/88 95 04/27/17 00:44 96.2 95 18 199/88 95 04/27/17 00:23 18 04/26/17 23:53 17 04/26/17 23:44 98.6 65 17 138/63 98 04/26/17 22:00 18 04/26/17 20:25 17 04/26/17 20:18 97.4 68 17 141/67 95 04/26/17 19:34 17 04/26/17 16:00 98.1 65 17 158/67 96 04/26/17 04/26/17 04/27/17 14:59 22:59 06:59 Intake Total 1353 ml 1073 ml 1550 ml Output Total 600 ml 700 ml 1000 ml Balance 753 ml 373 ml 550 ml Intake Oral 240 ml 280 ml 360 ml IV Total 1113 ml 793 ml 1190 ml Output Urine Total 600 ml 700 ml 1000 ml # Bowel Movements 0 Result Diagram: 04/25/17 0330 04/27/17 0430 Imaging Last Impressions Chest X-Ray 04/23/17 0000 Signed Impressions: Service Date/Time: April 13:23 - CONCLUSION: Normal examination except for some platelike atelectasis right lung base. Gallito Barr MD Abdomen/Pelvis CT 04/23/17 0000 Signed Impressions: Service Date/Time: April 03:14 - CONCLUSION: 1. There are multiple moderately distended proximal and mid small bowel loops with a transition zone in the mid to distal small bowel characteristic of a small bowel obstruction. 2. There is a small amount of free fluid in the abdomen. No evidence of free air. 3. Stable left lobe hepatic cysts. Romie Johns MD Abdomen X-Ray 04/23/17 0000 Signed Impressions: Service Date/Time: , April 23, 2017 13:19 - CONCLUSION: No evidence of obstruction. NG tube is within the stomach. Gallito aBrr MD A/P Problem List: (1) Bowel obstruction Status: Acute Plan: - POD #3 - Lap with ASHLEY performed by Dr. 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 - oob/ambulate -d.c romero -pt says her bp well controlled at home and that spikes are pain related. prn control d/c when ok with surgery. (2) HTN (hypertension) Status: Chronic Plan: - elevated due to pain - lisinopril, cardizem CD -prn control (3) DM (diabetes mellitus) Status: Chronic Plan: - HgA1C 7.2 (04/17/17) - SSI Problem Qualifiers (1) Bowel obstruction: Qualified Code: K56.60 - Intestinal obstruction, unspecified type (2) HTN (hypertension): Qualified Code: I10 - Essential hypertension (3) DM (diabetes mellitus): [place] Cardona MD Apr 27, 2017 15:00
[2017-04-27] MEDS ORDERED: POTASSIUM PHOSPHATE MONOBASIC 500 MG TAB PO ONE (15:15)
[2017-04-27] MEDS: ENOXAPARIN SODIUM 40 MG/0.4 ML SYRINGE SQ SCH (15:52)
[2017-04-27] MEDS: POTASSIUM PHOSPHATE MONOBASIC 500 MG TAB PO SCH (22:16)
[2017-04-27] MEDS: ZOLPIDEM TARTRATE 10 MG TAB PO PRN (22:20)
[2017-04-28] VITALS: BP 188/86; PULSE 68; RESP 20; TEMP 97.3; O2SAT 98
[2017-04-28] MEDS: ENALAPRILAT 1.25 MG/ML VIAL IV PUSH PRN (00:19)
[2017-04-28 04:00] VITALS: BP 195/86; RESP 20; TEMP 98
[2017-04-28] MEDS: cloNIDine HCL 0.1 MG TAB PO PRN (05:17)
[2017-04-28] MEDS: LEVOTHYROXINE SODIUM 125 MCG TAB PO SCH (05:17)
[2017-04-28] MEDS: PCA - TOTAL MG DILAUDID DELIVERED PER SHIFT OTHER SCH (05:18)
[2017-04-28] MEDS: KETOROLAC TROMETHAMINE 30 MG/ML (IVP) VIAL IV PUSH SCH ×3 (05:18→17:22)
[2017-04-28] MEDS: INSULIN ASPART SUPPLEMENTAL SCALE SQ SCH ×4 (06:30→21:36)
[2017-04-28 08:00] VITALS: BP 177/86; PULSE 57; RESP 18; TEMP 97.4; O2SAT 98
[2017-04-28 08:19] LABS: BICARBONATE 21.2 MEQ/L (21.0-32.0); MAGNESIUM 1.5 MG/DL (1.5-2.5); POTASSIUM 3.8 MEQ/L (3.5-5.1)
[2017-04-28 08:35] LABS: CALCIUM-PROTEIN CORRECTED 8.2 MG/DL (8.5-10.1)
[2017-04-28] MEDS: SODIUM CHLORIDE 0.9% FLUSH 10 ML FLUSH IV FLUSH SCH ×2 (09:00→21:34)
[2017-04-28] MEDS: SERTRALINE HCL 50 MG TAB PO SCH (09:16)
[2017-04-28] MEDS: DILTIAZEM-CD 300 MG CAP ER PO SCH (09:16)
[2017-04-28] MEDS: CALCITRIOL 0.25 MCG CAP PO SCH ×2 (09:16→21:33)
[2017-04-28] MEDS: DOCUSATE SODIUM 50 MG/SENNA 8.6 MG TAB PO SCH ×2 (09:16→21:34)
[2017-04-28] MEDS: FAMOTIDINE 20 MG/2 ML VIAL IV PUSH SCH ×2 (09:16→21:34)
[2017-04-28] MEDS: CALCIUM CARBONATE 1.25 GM (CA 500 MG) TAB PO SCH ×2 (09:16→21:33)
[2017-04-28] MEDS: POTASSIUM PHOSPHATE MONOBASIC 500 MG TAB PO SCH ×2 (09:16→21:33)
[2017-04-28] MEDS: LISINOPRIL 20 MG TAB PO SCH (09:17)
[2017-04-28 12:00] VITALS: BP 188/88; PULSE 76; RESP 18; TEMP 95.8; O2SAT 99
--- NOTE | 2017-04-28 12:03 | HHI.PR ---
Subjective Subjective Notes Renee some diet. Very small bm after suppository. Objective Vitals/I&O Vital Signs Date Time Temp Pulse Resp B/P Pulse Ox O2 Delivery O2 Flow Rate FiO2 04/28/17 08:00 97.4 57 18 177/86 98 04/27/17 22:22 Nasal Cannula 1.00 04/24/17 17:18 Labs Laboratory Tests Test 04/28/17 06:00 Sodium Level 144 Potassium Level 3.8 Chloride Level 114 Carbon Dioxide Level 21.2 Anion Gap 9 Blood Urea Nitrogen 11 Creatinine 0.60 Estimat Glomerular Filtration 102 Rate Random Glucose 118 Calcium Level 7.1 Protein Corrected Calcium 8.2 Phosphorus Level 1.6 Magnesium Level 1.5 Total Protein 5.1 Radiology Last Impressions Chest X-Ray 04/23/17 0000 Signed Impressions: Service Date/Time: April 13:23 - CONCLUSION: Normal examination except for some platelike atelectasis right lung base. Gallito Barr MD Abdomen/Pelvis CT 04/23/17 0000 Signed Impressions: Service Date/Time: April 03:14 - CONCLUSION: 1. There are multiple moderately distended proximal and mid small bowel loops with a transition zone in the mid to distal small bowel characteristic of a small bowel obstruction. 2. There is a small amount of free fluid in the abdomen. No evidence of free air. 3. Stable left lobe hepatic cysts. Romie Johns MD Abdomen X-Ray 04/23/17 0000 Signed Impressions: Service Date/Time: April 13:19 - CONCLUSION: No evidence of obstruction. NG tube is within the stomach. Gallito Barr MD Narrative Exam NAD Abd: soft, inc c/d/i, serous drainage LLQ incision A/P Assessment and Plan 61 yo F POD 4 s/p lap-> open lysis of adhesions for SBO. Stable post op. 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 OOB. DVT proph: lovenox, scds. Anticipate d/c home tomorrow. Reza Mccarthy MD Apr 28, 2017 12:03
[2017-04-28] MEDS ORDERED: MAGNESIUM HYDROXIDE SUSP 30 ML CUP PO ONE (12:15)
--- NOTE | 2017-04-28 12:52 | HHI.PR ---
Subjective Remarks Still with some pain. DOUGHNUT ICER MACHINE stopped today Pt has small BM after suppository given Afebrile Objective Vitals Vital Signs Date Time Temp Pulse Resp B/P Pulse Ox O2 Delivery O2 Flow Rate FiO2 04/28/17 12:00 95.8 76 18 188/88 99 04/28/17 08:00 97.4 57 18 177/86 98 04/28/17 05:18 18 04/28/17 04:00 98.0 20 195/86 04/28/17 00:00 97.3 68 20 188/86 98 04/27/17 22:22 96 Nasal Cannula 1.00 04/27/17 22:13 18 04/27/17 20:00 98.7 63 20 177/78 96 04/27/17 16:53 17 04/27/17 16:13 17 04/27/17 16:00 97.2 65 17 166/73 96 04/27/17 14:00 17 04/27/17 04/27/17 04/28/17 14:59 22:59 06:59 Intake Total 1142 ml 240 ml 698 ml Output Total 800 ml 3775 ml Balance 342 ml 240 ml -3077 ml Intake Oral 340 ml 240 ml 240 ml IV Total 802 ml 458 ml Output Urine Total 800 ml 3775 ml # Voids 2 # Bowel Movements 0 Result Diagram: 04/25/17 0330 04/28/17 0600 Other Results Laboratory Tests Test 04/27/17 04/28/17 04:30 06:00 Sodium Level 143 MEQ/L 144 MEQ/L Potassium Level 3.8 MEQ/L 3.8 MEQ/L Chloride Level 115 MEQ/L 114 MEQ/L Carbon Dioxide Level 18.8 MEQ/L 21.2 MEQ/L Anion Gap 9 MEQ/L 9 MEQ/L Blood Urea Nitrogen 14 MG/DL 11 MG/DL Creatinine 0.57 MG/DL 0.60 MG/DL Estimat Glomerular Filtration 108 ML/MIN 102 ML/MIN Rate Random Glucose 153 MG/DL 118 MG/DL Calcium Level 6.3 MG/DL 7.1 MG/DL Protein Corrected Calcium 7.6 MG/DL 8.2 MG/DL Phosphorus Level 1.1 MG/DL 1.6 MG/DL Magnesium Level 1.6 MG/DL 1.5 MG/DL Total Protein 4.5 GM/DL 5.1 GM/DL Imaging Last Impressions Chest X-Ray 7/20/17 0000 Signed Impressions: Service Date/Time: April 13:23 - CONCLUSION: Normal examination except for some platelike atelectasis right lung base. Gallito Barr MD Abdomen/Pelvis CT 04/23/17 0000 Signed Impressions: Service Date/Time: , April 23, 2017 03:14 - CONCLUSION: 1. There are multiple moderately distended proximal and mid small bowel loops with a transition zone in the mid to distal small bowel characteristic of a small bowel obstruction. 2. There is a small amount of free fluid in the abdomen. No evidence of free air. 3. Stable left lobe hepatic cysts. Romie Johns MD Abdomen X-Ray 04/23/17 0000 Signed Impressions: Service Date/Time: , April 23, 2017 13:19 - CONCLUSION: No evidence of obstruction. NG tube is within the stomach. Gallito Barr MD Objective Remarks General NAD, AAOx3 Chest: CTA Cardiac: Regular Abd: +BS, soft ND, midline incision is c/d/i Ext: No edema A/P Problem List: (1) Bowel obstruction Status: Acute Plan: - POD #4 - Lap with YAW performed by Dr. Mccarthy (04/24/17) - DOUGHNUT ICER MACHINE stopped today. - Home dose of Oxycodone resumed - Lovenox - diet per gen surgery. - oob/ambulate - Anticipate d/c tomorrow per General surgery. (2) HTN (hypertension) Status: Chronic Plan: - Home meds continued, lisinopril, cardizem CD - Pt says her bp well controlled at home and that spikes are pain related. - Cont. Clonidine PRN (3) DM (diabetes mellitus) Status: Chronic Plan: - HgA1C 7.2 (04/17/17) - SSI Assessment and Plan Patient examined. Assessment and plan formulated with Ilene Falk PA-C. I agree with the above. sbo. yaw. doing better. wean off pain med. laxative. d/c tomorrow. pt has refused titration up of her bp meds. still high. prn dosing. Problem Qualifiers (1) Bowel obstruction: Qualified Code: K56.60 - Intestinal obstruction, unspecified type (2) HTN (hypertension): Qualified Code: I10 - Essential hypertension (3) DM (diabetes mellitus): Ilene Falk Apr 28, 2017 12:52 [place] Cardona MD Apr 28, 2017 15:17
[2017-04-28] MEDS: ALPRAZolam 1 MG TAB PO PRN (14:52)
[2017-04-28 16:00] VITALS: BP 138/74; PULSE 72; RESP 17; TEMP 96.4; O2SAT 98
[2017-04-28] MEDS: ENOXAPARIN SODIUM 40 MG/0.4 ML SYRINGE SQ SCH (17:22)
[2017-04-28 20:00] VITALS: BP 161/75; PULSE 71; RESP 20; TEMP 98; O2SAT 98
[2017-04-28] MEDS: ZOLPIDEM TARTRATE 10 MG TAB PO PRN (21:43)
[2017-04-29 04:00] VITALS: BP 172/82; PULSE 81; RESP 20; TEMP 96.6; O2SAT 98
[2017-04-29] MEDS: LEVOTHYROXINE SODIUM 125 MCG TAB PO SCH (05:58)
[2017-04-29] MEDS: KETOROLAC TROMETHAMINE 30 MG/ML (IVP) VIAL IV PUSH SCH ×3 (05:59→11:50)
[2017-04-29] MEDS: INSULIN ASPART SUPPLEMENTAL SCALE SQ SCH ×2 (06:05→11:00)
[2017-04-29 08:00] VITALS: BP 179/79; PULSE 73; RESP 16; TEMP 98.2; O2SAT 97
--- NOTE | 2017-04-29 08:32 | HHI.PR ---
Subjective Subjective Notes Tolerating diet. C/o edema in lower ext and face. She had another small bm yesterday. Objective Vitals/I&O Vital Signs Date Time Temp Pulse Resp B/P Pulse Ox O2 Delivery O2 Flow Rate FiO2 04/29/17 04:00 96.6 81 20 172/82 98 04/27/17 22:22 Nasal Cannula 1.00 Radiology Last Impressions Chest X-Ray 04/23/17 0000 Signed Impressions: Service Date/Time: April 13:23 - CONCLUSION: Normal examination except for some platelike atelectasis right lung base. Gallito Barr MD Abdomen/Pelvis CT 04/23/17 0000 Signed Impressions: Service Date/Time: April 03:14 - CONCLUSION: 1. There are multiple moderately distended proximal and mid small bowel loops with a transition zone in the mid to distal small bowel characteristic of a small bowel obstruction. 2. There is a small amount of free fluid in the abdomen. No evidence of free air. 3. Stable left lobe hepatic cysts. Romie Johns MD Abdomen X-Ray 04/23/17 0000 Signed Impressions: Service Date/Time: April 13:19 - CONCLUSION: No evidence of obstruction. NG tube is within the stomach. Gallito Barr MD Narrative Exam NAD Abd: soft, inc c/d/i, serous drainage LLQ incision A/P Assessment and Plan 61 yo F POD 5 s/p lap-> open lysis of adhesions for SBO. Stable post op. ADA diet Home dose oxycodone for pain. OOB. DVT proph: lovenox, scds. Ok for d/c home from my standpoint. F/u with me two weeks. Ok to shower. Reza Mccarthy MD Apr 29, 2017 08:32
[2017-04-29] MEDS ORDERED: BISACODYL 10 MG SUPP RECTAL ONE (08:45)
[2017-04-29] MEDS ORDERED: MAGNESIUM HYDROXIDE SUSP 30 ML CUP PO ONE (08:45)
[2017-04-29] MEDS: DILTIAZEM-CD 300 MG CAP ER PO SCH (08:53)
[2017-04-29] MEDS: DOCUSATE SODIUM 50 MG/SENNA 8.6 MG TAB PO SCH (08:53)
[2017-04-29] MEDS: CALCIUM CARBONATE 1.25 GM (CA 500 MG) TAB PO SCH (08:53)
[2017-04-29] MEDS: POTASSIUM PHOSPHATE MONOBASIC 500 MG TAB PO SCH (08:54)
[2017-04-29] MEDS: SERTRALINE HCL 50 MG TAB PO SCH (08:54)
[2017-04-29] MEDS: LISINOPRIL 20 MG TAB PO SCH (08:54)
[2017-04-29] MEDS: CALCITRIOL 0.25 MCG CAP PO SCH (08:54)
[2017-04-29] MEDS: FAMOTIDINE 20 MG/2 ML VIAL IV PUSH SCH (08:55)
[2017-04-29] MEDS: SODIUM CHLORIDE 0.9% FLUSH 10 ML FLUSH IV FLUSH SCH (09:02)
[2017-04-29 09:28] VITALS: O2SAT 98
[2017-04-29] MEDS ORDERED: POTASSIUM CHLORIDE 20 MEQ CONTROLLED RELEASE TAB PO ONE (10:45)
[2017-04-29] MEDS ORDERED: FUROSEMIDE 20 MG TAB PO ONE (10:45)
[2017-04-29 12:00] VITALS: BP 166/77; PULSE 71; RESP 16; TEMP 98.4; O2SAT 99
--- NOTE | 2017-04-29 12:36 | HHI.PR ---
Subjective Remarks Pt complains of continued swelling in her legs and feet She feels that her weight is much higher than her baseline. Objective Vitals Vital Signs Date Time Temp Pulse Resp B/P Pulse Ox O2 Delivery O2 Flow Rate FiO2 04/29/17 09:28 98 21 04/29/17 08:00 98.2 73 16 179/79 97 04/29/17 04:00 96.6 81 20 172/82 98 04/28/17 20:00 98.0 71 20 161/75 98 04/28/17 16:00 96.4 72 17 138/74 98 04/28/17 04/28/17 04/29/17 15:00 23:00 07:00 Intake Total 240 ml 240 ml 120 ml Output Total 600 ml 200 ml Balance -360 ml 40 ml 120 ml Intake Oral 240 ml 240 ml 120 ml Output Urine Total 600 ml 200 ml # Voids 1 # Bowel Movements 1 Result Diagram: 04/25/17 0330 04/28/17 0600 Other Results Laboratory Tests Test 04/28/17 06:00 Sodium Level 144 MEQ/L Potassium Level 3.8 MEQ/L Chloride Level 114 MEQ/L Carbon Dioxide Level 21.2 MEQ/L Anion Gap 9 MEQ/L Blood Urea Nitrogen 11 MG/DL Creatinine 0.60 MG/DL Estimat Glomerular Filtration 102 ML/MIN Rate Random Glucose 118 MG/DL Calcium Level 7.1 MG/DL Protein Corrected Calcium 8.2 MG/DL Phosphorus Level 1.6 MG/DL Magnesium Level 1.5 MG/DL Total Protein 5.1 GM/DL Imaging Last Impressions Chest X-Ray 04/23/17 0000 Signed Impressions: Service Date/Time: April 13:23 - CONCLUSION: Normal examination except for some platelike atelectasis right lung base. Gallito Barr MD Abdomen/Pelvis CT 04/23/17 0000 Signed Impressions: Service Date/Time: April 03:14 - CONCLUSION: 1. There are multiple moderately distended proximal and mid small bowel loops with a transition zone in the mid to distal small bowel characteristic of a small bowel obstruction. 2. There is a small amount of free fluid in the abdomen. No evidence of free air. 3. Stable left lobe hepatic cysts. Romie Johns MD Abdomen X-Ray 04/23/17 0000 Signed Impressions: Service Date/Time: April 13:19 - CONCLUSION: No evidence of obstruction. NG tube is within the stomach. Gallito Barr MD Objective Remarks General NAD, AAOx3 Chest: CTA Cardiac: Regular Abd: +BS, soft ND, midline incision is c/d/i Ext: Mild bilateral LE edema A/P Problem List: (1) Bowel obstruction Status: Acute Plan: - POD #5 - Lap with ASHLEY performed by Dr. 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 - oob/ambulate - Pt complains of LE edema, will give another dose of Lasix and KCL today - weight pt daily - I&Os - Anticipate d/c tomorrow (2) HTN (hypertension) Status: Chronic Plan: - Home meds continued, lisinopril, cardizem CD - Pt says her bp well controlled at home and that spikes are pain related. - Cont. Clonidine PRN (3) DM (diabetes mellitus) Status: Chronic Plan: - HgA1C 7.2 (04/17/17) - SSI Problem Qualifiers (1) Bowel obstruction: Qualified Code: K56.60 - Intestinal obstruction, unspecified type (2) HTN (hypertension): Qualified Code: I10 - Essential hypertension (3) DM (diabetes mellitus): Ilene Falk Apr 29, 2017 12:36
[2017-04-29] MEDS ORDERED: POTA-163 PO (13:24)
[2017-04-29] MEDS ORDERED: FURO1TAB62 PO (13:24)
[2017-04-29] MEDS ORDERED: K-PHTAB PO (13:24)
--- NOTE | 2017-04-29 13:29 | HHI.DS ---
Discharge Summary Admission Date Apr 23, 2017 at 04:19 Discharge Date: Apr 29, 2017 Admitting Diagnosis SBO (1) Bowel obstruction Diagnosis: Principal (2) HTN (hypertension) Diagnosis: Secondary (3) DM (diabetes mellitus) Diagnosis: Secondary Consultants Dr. Reza Mccarthy - General Surgery Procedures Lap with ASHLEY performed by Dr. Mccarthy (04/24/17) Brief History 61-year-old female describes abdominal pain for about 3 days. She has had no bowel movement for 3 days at least. She has passed no flatus. Pain is generalized. She reports a history of small bowel obstruction. She denies urinary complaints. Positive subjective fever reported. Patient reports history of colon cancer in 2004 treated in [facility]. She has had no recurrence since. She has undergone a hysterectomy and multiple surgeries related to ovarian disease. Patient had CT suggesting SBO admit surgical evaluation . CBC/BMP: 04/25/17 0330 04/28/17 0600 Significant Findings Laboratory Tests Test 04/27/17 04/28/17 04:30 06:00 Chloride Level 115 MEQ/L 114 MEQ/L (98-107) (98-107) Carbon Dioxide Level 18.8 MEQ/L (21.0-32.0) Random Glucose 153 MG/DL 118 MG/DL (74-106) (74-106) Calcium Level 6.3 MG/DL 7.1 MG/DL (8.5-10.1) (8.5-10.1) Protein Corrected Calcium 7.6 MG/DL 8.2 MG/DL (8.5-10.1) (8.5-10.1) Phosphorus Level 1.1 MG/DL 1.6 MG/DL (2.5-4.9) (2.5-4.9) Total Protein 4.5 GM/DL 5.1 GM/DL (6.4-8.2) (6.4-8.2) Imaging Last Impressions Chest X-Ray 04/23/17 0000 Signed Impressions: Service Date/Time: April 13:23 - CONCLUSION: Normal examination except for some platelike atelectasis right lung base. Gallito Barr MD Abdomen/Pelvis CT 04/23/17 0000 Signed Impressions: Service Date/Time: April 03:14 - CONCLUSION: 1. There are multiple moderately distended proximal and mid small bowel loops with a transition zone in the mid to distal small bowel characteristic of a small bowel obstruction. 2. There is a small amount of free fluid in the abdomen. No evidence of free air. 3. Stable left lobe hepatic cysts. Romie Johns MD Abdomen X-Ray 04/23/17 0000 Signed Impressions: Service Date/Time: April 13:19 - CONCLUSION: No evidence of obstruction. NG tube is within the stomach. Gallito Barr MD PE at Discharge General NAD, AAOx3 Chest: CTA Cardiac: Regular Abd: +BS, soft ND, midline incision is c/d/i Ext: Mild bilateral LE edema Hospital Course Pt was admitted with complaints of abdominal pain. CT Abd/pelvis at admission reveled multiple moderately distended proximal and mid small bowel loops with a transition zone in the mid to distal small bowel characteristic of a small bowel obstruction. Pt was seen by General surgery and underwent Laparotomy with ASHLEY performed by Dr. Mccarthy (04/24/17). Pt did well post-operatively. TUBE DRAWER stopped on 04/28. Home dose of Oxycodone resumed on 04/28. She was given Lovenox for DVT prophylaxis. Diet was advanced and pt tolerated this well. She did move her bowels prior to discharge. She was reportedly ambulating without difficulty. Her BP was elevated during admission. Home meds were continued, which included lisinopril and Cardizem CD. Pt says her bp well controlled at home and that spikes are pain related. Pt complained of LE edema and weight gain during admission and was periodically given a dose of oral Lasix and KCL. We offered to keep the pt to continue diuresis with some IV Lasix but she insisted on going home on the day of discharge. Patient is to weigh herself daily and record daily weights until followup with her PCP. She will need to followup with Dr. Mcdermott next week, call for an appt. Pt will need to have blood work checked on 05/04/17 at [facility] lab She is to take Lasix 20mg once daily and potassium chloride 20meq once daily for the next 3 days She is to take K-Phos 1000mg twice daily for the next three days Pt will need a followup with Dr. Mccarthy in 2 weeks, call for an appt. Pt Condition on Discharge: Stable Discharge Disposition: Discharge Home Discharge Instructions DIET: Follow Instructions for: Heart Healthy Diet Activities you can perform: Regular-No Restrictions Follow up Referrals: PCP Follow-up - 3-[address] [facility] - 10 Days with Reza Mccarthy MD New Medications: Furosemide (Lasix) 20 Mg Tab 20 MG PO DAILY edema #3 Ref 0 TAB Potassium Chloride ER (Potassium Chloride ER) 20 Meq Tab 20 MEQ PO DAILY Electrolyte Replacement #3 Ref 0 TAB Potassium Phosphate Monobasic (K-Phos) 500 Mg Tab 1000 MG PO Q12HR electrolyte replacement #6 TAB Continued Medications: Alprazolam (Xanax) 1 Mg Tab 1 MG PO Q8H PRN ANXIETY #30 Ref 0 TAB Atorvastatin (Atorvastatin) 80 Mg Tab 80 MG PO HS Cholesterol Management #30 Ref 0 TAB Calcitriol (Calcitriol) 0.25 Mcg Cap 0.25 MCG PO BID Calcium Supplement #30 Ref 0 CAP Diltiazem HCl Coated Beads (Diltiazem HCl ER) 300 Mg Cap 1 TAB PO DAILY Fentanyl Patch 72 HR (Fentanyl Patch 72 HR) 50 Mcg/Hr Patch 50 MCG T-DERMAL Q72H Remove old patch when new one placed. Pain Management #10 Ref 0 PATCH Levothyroxine (Levothyroxine) 125 Mcg Tab 125 MCG PO qod Thyroid #30 Ref 0 TAB Lisinopril (Lisinopril) 40 Mg Tab 40 MG PO DAILY Blood Pressure Management #30 Ref 0 TAB Methotrexate (Methotrexate) 2.5 Mg Tab 20 MG PO Q7D Ref 0 TAB Oxycodone (Oxycodone) 10 Mg Tab 10 MG PO Q6H PRN PAIN #30 Ref 0 TAB Ranitidine (Ranitidine) 150 Mg Cap 150 MG PO BID #60 Ref 0 CAP Sertraline (Zoloft) 25 Mg Tab 25 MG PO DAILY #30 Ref 0 TAB Zolpidem (Ambien) 10 Mg Tab 10 MG PO HS PRN INSOMNIA #30 Ref 0 TAB Ilene Falk Apr 29, 2017 13:28 [place] Cardona MD Apr 29, 2017 21:47
--- NOTE | 2017-04-29 13:31 | HHI.DCPOC ---
Discharge Care Plan Diagnosis: (1) Bowel obstruction (2) DM (diabetes mellitus) (3) HTN (hypertension) (4) Edema Goals to Promote Your Health - Patient is to weigh herself daily and record daily weights until followup with her PCP. - She will need to followup with Dr. Mcdermott next week, call for an appt. - Pt will need to have blood work checked on 05/04/17 at [facility] lab - She is to take Lasix 20mg once daily and potassium chloride 20meq once daily for the next 3 days - She is to take K-Phos 1000mg twice daily for the next three days - Pt will need a followup with Dr. Mccarthy in 2 weeks, call for an appt. Directions to Meet Your Goals Take your medications as prescribed Follow your dietary instruction Follow activity as directed Keep your appointments as scheduled Take your immunizations and boosters as scheduled If your symptoms worsen call your PCP, if no PCP go to Urgent Care Center or Emergency Room Smoking is Dangerous to Your Health. Avoid second hand smoke Call the 24-hour hour crisis hotline for domestic abuse at Ilene Falk Apr 29, 2017 13:31
== END 2017-04-29 14:57 | disposition home or self-care (01) | DRG 336 ==
LOC: NEPE 23:34 → NEDA 04-23 04:19 → NEPGCP 04-23 06:36 → N07A 04-23 20:02
PROVIDERS: ADMIT Hospitalist; ATTEND Hospitalist
PROC: 0DNS4ZZ (ICD-10-PCS; principal; 2017-04-24 15:35)
PROC: 0DN80ZZ Release Small Intestine, Open Approach (ICD-10-PCS; 2017-04-24 15:35)
DX: K56.5 Intestinal adhesions [bands] with obstruction (postinfection) (principal); N39.0 Urinary tract infection, site not specified; I11.0 Hypertensive heart disease with heart failure; I50.9 Heart failure, unspecified; F32.9 Major depressive disorder, single episode, unspecified; J44.9 Chronic obstructive pulmonary disease, unspecified; E11.9 Type 2 diabetes mellitus without complications; E78.5 Hyperlipidemia, unspecified; G47.33 Obstructive sleep apnea (adult) (pediatric); K21.9 Gastro-esophageal reflux disease without esophagitis; M06.9 Rheumatoid arthritis, unspecified; F41.9 Anxiety disorder, unspecified; E89.0 Postprocedural hypothyroidism; M79.7 Fibromyalgia; Z53.31 Laparoscopic surgical procedure converted to open procedure; Z79.4 Long term (current) use of insulin; Z85.038 Personal history of other malignant neoplasm of large intestine; Z86.711 Personal history of pulmonary embolism; Z86.718 Personal history of other venous thrombosis and embolism; Z87.891 Personal history of nicotine dependence; Z92.3 Personal history of irradiation; W01.190A Fall on same level from slipping, tripping and stumbling with subsequent striking against furniture, initial encounter; Y92.231 Patient bathroom in hospital as the place of occurrence of the external cause
CPT/HCPCS: 71010; 74000; 74177; 80048; 80053; 81001; 82948; 83690; 83735; 84100; 84155; 85025; 87086; 94150; 96361; 96374; 96375; 96376; J0131; J0690; J0696; J1170; J1650; J1815; J1885; J2270; J2405; J3010; J7030; J7050; J7120; Q9963; Q9967

== ENCOUNTER 2017-07-30 16:58 | Inpatient (IN) | payer MEDICARE ==
[~2017-07-30] VITALS: Ht 167.6 cm; Wt 79.6 kg
[~2017-07-30 16:58] MED LIST changes: -CLIN1CAP6 PO; -ERGO1CAP10 PO; -FENO145T2 PO; +FURO1TAB62 PO; +K-PHTAB PO; -NOVOLOGSS SQ; +POTA-163 PO; -VORI200T6 PO
[2017-07-30 17:00] VITALS: BP 147/73; PULSE 86; RESP 14; TEMP 99; O2SAT 99
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
[2017-07-30 18:43] LABS: AUTOMATED NEUTROPHIL # 4.5 TH/MM3 (1.8-7.7); BASOPHIL # 0.1 TH/MM3 (0-0.2); BASOPHIL % 0.9 % (0.0-2.0); EOSINOPHIL # 0.3 TH/MM3 (0-0.4); EOSINOPHIL % 3.7 % (0.0-4.0); HEMATOCRIT 34.4 % (35.0-46.0); HEMO FLAGS DIFF FINAL; LYMPH % 21.2 % (9.0-44.0); LYMPHOCYTE # 1.5 TH/MM3 (1.0-4.8); MEAN CELL VOLUME 94.7 FL (80.0-100.0); MEAN CORPUSCULAR HGB CONC 32.7 % (32.0-36.0); MONO % 8.9 % (0.0-8.0); NEUT % 65.3 % (16.0-70.0); PLATELET COUNT 303 TH/MM3 (150-450); RED BLOOD COUNT 3.63 MIL/MM3 (4.00-5.30); RED CELL DISTRIBUTION WIDTH 14.3 % (11.6-17.2); WHITE BLOOD COUNT 6.8 TH/MM3 (4.0-11.0)
[2017-07-30 18:48] LABS: APTT (PATIENT) 26.5 SEC (24.3-30.1); PROTHROMBIN TIME - PATIENT 10.7 SEC (9.8-11.6)
[2017-07-30 19:09] LABS: ALT (GPT) 23 U/L (10-53); ANION GAP 8 MEQ/L (5-15); AST (GOT) 22 U/L (15-37); BICARBONATE 21.7 MEQ/L (21.0-32.0); BLOOD UREA NITROGEN 21 MG/DL (7-18); CHLORIDE 109 MEQ/L (98-107); GLOMERULAR FILTRATION RATE 45 ML/MIN (>89); POTASSIUM 3.9 MEQ/L (3.5-5.1); SODIUM (NA) 139 MEQ/L (136-145)
[2017-07-30 19:12] LABS: ALKALINE PHOSPHATASE 37 U/L (45-117); TOTAL BILIRUBIN ADULT 0.3 MG/DL (0.2-1.0)
[2017-07-30] MEDS ORDERED: HEPARIN-D5W 25,000 U/250 ML 250 ML IV ONE (19:15)
[2017-07-30] MEDS ORDERED: HEPARIN SODIUM - IV 10,000 UNITS/10 ML VIAL IV ONE (19:15)
[2017-07-30 19:56] VITALS: BP 158/73; PULSE 78; RESP 16; O2SAT 100
[2017-07-30] MEDS ORDERED: SODIUM CHLORIDE 0.9% FLUSH 10 ML FLUSH IV FLUSH PRN (20:45)
[2017-07-30] MEDS: INSULIN ASPART SUPPLEMENTAL SCALE SQ SCH (21:00)
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
[2017-07-30] MEDS ORDERED: DEXTROSE 50% IN WATER 50 ML VIAL(D50) IV PUSH PRN (21:15)
[2017-07-30] MEDS ORDERED: GLUCAGON 1 MG/ML VIAL OTHER PRN (21:15)
[2017-07-30 21:28] VITALS: BP 175/76; PULSE 75; RESP 14; O2SAT 100
[2017-07-30 21:55] VITALS: BP 163/83; PULSE 78; RESP 18; TEMP 97.6; O2SAT 97
--- NOTE | 2017-07-30 22:59 | EKG ---
Date Performed: 07/30/2017 Time Performed: 19:24:56 PTAGE: 61 years EKG: Sinus rhythm POSSIBLE LEFT ATRIAL ENLARGEMENT MODERATE INTRAVENTRICULAR CONDUCTION DELAY NONSPECIFIC T-WAVE ABNOR MALITY ABNORMAL ECG PREVIOUS TRACING : 11/26/2016 12.42 Compared to prior tracing no significant change DOCTOR: Dinh Olivares Interpretating Date/Time 07/30/2017 22:59:23
[2017-07-30] MEDS ORDERED: fentaNYL 50 MCG/HR PATCH T-DERMAL SCH (23:00)
[2017-07-30] MEDS ORDERED: METHOTREXATE 2.5 MG TAB PO SCH (23:00)
[2017-07-30 23:10] VITALS: PULSE 73
[2017-07-30] MEDS: FAMOTIDINE 20 MG TAB PO SCH (23:52)
[2017-07-30] MEDS: POTASSIUM PHOSPHATE MONOBASIC 500 MG TAB PO SCH (23:53)
[2017-07-30] MEDS: CALCITRIOL 0.25 MCG CAP PO SCH (23:53)
[2017-07-30] MEDS: ZOLPIDEM TARTRATE 10 MG TAB PO PRN (23:53)
[2017-07-30] MEDS: ATORVASTATIN 80 MG TAB PO SCH (23:54)
[2017-07-30] MEDS: SODIUM CHLORIDE 0.9% FLUSH 10 ML FLUSH IV FLUSH SCH (23:55)
[2017-07-31] VITALS (7 sets, daily range): BP systolic 123–188; BP diastolic 56–90; PULSE 69–94; RESP 16–20; TEMP 97.1–97.9; O2SAT 96–98
[2017-07-31] MEDS ORDERED: REMOVE OLD DURAGESIC (FENTANYL) PATCH T-DERMAL SCH
[2017-07-31] MEDS ORDERED: fentaNYL 50 MCG/HR PATCH T-DERMAL SCH
[2017-07-31 02:23] LABS: HEMATOCRIT 29.4 % (35.0-46.0); MEAN CELL VOLUME 93.3 FL (80.0-100.0); MEAN CORPUSCULAR HEMOGLOBIN 30.5 PG (27.0-34.0); MEAN CORPUSCULAR HGB CONC 32.7 % (32.0-36.0); PLATELET COUNT 275 TH/MM3 (150-450); RED BLOOD COUNT 3.15 MIL/MM3 (4.00-5.30); REVIEW FLAG FINAL; WHITE BLOOD COUNT 5.9 TH/MM3 (4.0-11.0)
[2017-07-31 03:17] LABS: APTT (PATIENT) 65.8 SEC (24.3-30.1)
[2017-07-31] MEDS: LEVOTHYROXINE SODIUM 125 MCG TAB PO SCH (06:02)
[2017-07-31] MEDS: INSULIN ASPART SUPPLEMENTAL SCALE SQ SCH ×4 (08:00→19:56)
[2017-07-31] MEDS: SERTRALINE HCL 50 MG TAB PO SCH (08:50)
[2017-07-31] MEDS: DILTIAZEM-CD 300 MG CAP ER PO SCH (08:50)
[2017-07-31] MEDS: POTASSIUM CHLORIDE 20 MEQ CONTROLLED RELEASE TAB PO SCH (08:50)
[2017-07-31] MEDS: CALCITRIOL 0.25 MCG CAP PO SCH ×2 (08:50→19:56)
[2017-07-31] MEDS: FAMOTIDINE 20 MG TAB PO SCH ×2 (08:50→19:56)
[2017-07-31] MEDS: FUROSEMIDE 20 MG TAB PO SCH (08:51)
[2017-07-31] MEDS: SODIUM CHLORIDE 0.9% FLUSH 10 ML FLUSH IV FLUSH SCH ×2 (08:51→19:55)
[2017-07-31] MEDS: POTASSIUM PHOSPHATE MONOBASIC 500 MG TAB PO SCH ×2 (08:51→19:55)
--- NOTE | 2017-07-31 10:09 | HHI.PR ---
Subjective Remarks Patient reports feeling well at this time SOB is about the same offers no other complaints at this time Objective Vitals Vital Signs Date Time Temp Pulse Resp B/P (MAP) Pulse Ox O2 Delivery O2 Flow Rate FiO2 07/31/17 04:00 97.1 78 20 172/79 (110) 07/31/17 00:13 97.3 78 18 174/79 (110) 97 07/31/17 00:00 Room Air 07/30/17 23:10 73 07/30/17 21:55 97.6 78 18 163/83 (109) 97 07/30/17 21:47 07/30/17 21:28 75 14 175/76 (109) 100 07/30/17 19:56 78 16 158/73 (101) 100 07/30/17 17:00 99.0 86 14 147/73 (97) 99 Result Diagram: 07/31/17 0208 07/30/17 1820 Other Results Laboratory Tests Test 07/30/17 18:20 07/31/17 02:08 07/31/17 11:48 White Blood Count 6.8 TH/MM3 5.9 TH/MM3 Red Blood Count 3.63 MIL/MM3 3.15 MIL/MM3 Hemoglobin 11.3 GM/DL 9.6 GM/DL Hematocrit 34.4 % 29.4 % Mean Corpuscular Volume 94.7 FL 93.3 FL Mean Corpuscular Hemoglobin 31.0 PG 30.5 PG Mean Corpuscular Hemoglobin Concent 32.7 % 32.7 % Red Cell Distribution Width 14.3 % 14.0 % Platelet Count 303 TH/MM3 275 TH/MM3 Mean Platelet Volume 8.2 FL 8.0 FL Neutrophils (%) (Auto) 65.3 % Lymphocytes (%) (Auto) 21.2 % Monocytes (%) (Auto) 8.9 % Eosinophils (%) (Auto) 3.7 % Basophils (%) (Auto) 0.9 % Neutrophils # (Auto) 4.5 TH/MM3 Lymphocytes # (Auto) 1.5 TH/MM3 Monocytes # (Auto) 0.6 TH/MM3 Eosinophils # (Auto) 0.3 TH/MM3 Basophils # (Auto) 0.1 TH/MM3 CBC Comment DIFF FINAL Differential Comment Prothrombin Time 10.7 SEC Prothromb Time International Ratio 1.0 RATIO Activated Partial Thromboplast Time 26.5 SEC 65.8 SEC 53.6 SEC Blood Urea Nitrogen 21 MG/DL Creatinine 1.23 MG/DL Random Glucose 177 MG/DL Total Protein 7.0 GM/DL Albumin 3.5 GM/DL Calcium Level 8.7 MG/DL Alkaline Phosphatase 37 U/L Aspartate Amino Transf (AST/SGOT) 22 U/L Alanine Aminotransferase (ALT/SGPT) 23 U/L Total Bilirubin 0.3 MG/DL Sodium Level 139 MEQ/L Potassium Level 3.9 MEQ/L Chloride Level 109 MEQ/L Carbon Dioxide Level 21.7 MEQ/L Anion Gap 8 MEQ/L Estimat Glomerular Filtration Rate 45 ML/MIN Imaging Outpatient CT pulmonary angiogram as well as left leg ultrasound revealed left leg DVT as well as bilateral pulmonary emboli Objective Remarks GENERAL: This is a well-nourished, well-developed patient, in no apparent distress. Alert and oriented. SKIN: scattered ecchymotic lesions distal lower extremities with some purpuric lesions on forearms. CARDIOVASCULAR: Regular rate and rhythm without murmurs, gallops, or rubs. RESPIRATORY: Clear to auscultation. Breath sounds equal bilaterally. GASTROINTESTINAL: Abdomen soft, non-tender, nondistended. MUSCULOSKELETAL: Left lower extremity with edema and slight tenderness to palpation. Trace nonpitting edema distal right lower extremity. Tenderness to palpation over left calf and left posterior thigh. NEUROLOGICAL: Awake and alert. No focal deficits appreciated. Motor and sensory grossly within normal limits. Five out of 5 muscle strength in all muscle groups. Normal speech. A/P Problem List: (1) DVT (deep venous thrombosis) ICD Codes: I82.409 - Deep vein thrombosis Status: Acute Plan: DVT (deep venous thrombosis) Pulmonary embolism She has noted increased dyspnea over the last 4 or 5 days. Check echocardiogram. Does not appear in overt failure or cor pulmonale at this point. Patient has been placed on heparin drip. hgb 11.3 (07/30) -> 9.6 (07/31) no signs of active bleeding will recheck CBC in AM As noted this is her second DVT or thromboembolic event and approximately 10 years. Current DVT can certainly be associated with prolonged immobility. Unclear if previous DVT had provoking event. Will need hypercoagulable workup as outpatient 2 D echocardiogram reviewed and reveals EF 55-60% normal left ventricular size mild mitral annular calcification mild mitral valve regurgitation trileaflet aortic valve with mil sclerosis mild tricuspid valve regurgitation Pulmonary valve is not well visualized Transition to oral anticoagulation, Xarelto 20 mg PO BID for 21 days Hypertension resume home lisinopril 40 mg PO daily check BMP in AM Diabetes mellitus type 2, insulin dependent Sliding scale insulin with Accu-Chek. Hold metformin due to recent contrast exposure. May need baseline insulin as well. Hypothyroidism following radioiodine therapy Continue medication. Hyperlipidemia Continue medication. Rheumatoid arthritis Continue medication DVT prophylaxis patient on heparin drip Plan to DC patient on oral anticoagulation tomorrow (2) Pulmonary embolism ICD Codes: I26.99 - Pulmonary embolism Status: Acute Plan: See above (3) Hypertension, benign ICD Codes: I10 - Benign hypertension Status: Chronic Plan: see above (4) Diabetes mellitus type 2, insulin dependent ICD Codes: E11.9 - Insulin dependent type 2 diabetes mellitus; Z79.4 - jail (current) use of insulin Status: Acute Plan: see above (5) Hypothyroidism following radioiodine therapy ICD Codes: E89.0 - Hypothyroidism following radioiodine therapy Status: Chronic Plan: see above (6) Hyperlipidemia ICD Codes: E78.5 - Hyperlipidemia Status: Chronic Plan: see above (7) Rheumatoid arthritis ICD Codes: M06.9 - Rheumatoid arthritis, unspecified Status: Chronic Plan: see above Assessment and Plan Patient examined. Assessment and plan formulated with Kaela Arenas PA-C. I agree with the above. Problem Qualifiers (1) DVT (deep venous thrombosis): (2) Pulmonary embolism: (3) Hyperlipidemia: Qualified Codes: E78.00 - Pure hypercholesterolemia, unspecified Kaela Arenas Jul 31, 2017 10:09 Amadou Ballesteros DO Aug 03, 2017 00:31
[2017-07-31 12:20] LABS: APTT (PATIENT) 53.6 SEC (24.3-30.1)
[2017-07-31] MEDS: LISINOPRIL 20 MG TAB PO SCH (14:32)
[2017-07-31] MEDS: ALPRAZolam 1 MG TAB PO PRN ×2 (14:32→22:35)
--- NOTE | 2017-07-31 14:36 | ECHRPT ---
Indication: r/o thrombus CONCLUSIONS The left ventricular systolic function is normal with an estimated ejection fraction in the range of 55-60%. Normal left ventricular size. Mild mitral annular calcification. Mild mitral valve regurgitation. Trileaflet aortic valve with mild sclerosis. No aortic valve regurgitation. There is mild tricuspid valve regurgitation. The pulmonary valve is not well visualized. BP: 172 / 79 HR: Rhythm: MEASUREMENTS (Male / Female) Normal Values Technical Quality:Technically difficult study 2D ECHO LV Diastolic Diameter PLAX 5.3 cm 4.2 - 5.9 / 3.9 - 5.3 cm LV Systolic Diameter PLAX 4.0 cm IVS Diastolic Thickness 0.9 cm 0.6 - 1.0 / 0.6 - 0.9 cm LVPW Diastolic Thickness 0.9 cm 0.6 - 1.0 / 0.6 - 0.9 cm LV Relative Wall Thickness 0.3 RV Internal Dim ED PLAX 3.0 cm M-MODE Aortic Root Diameter MM 2.4 cm LA Systolic Diameter MM 3.8 cm LA Ao Ratio MM 1.6 AV Cusp Separation MM 2.0 cm DOPPLER Mitral E Point Velocity 74.0 cm/s Mitral A Point Velocity 88.4 cm/s Mitral E to A Ratio 0.8 LV E' Lateral Velocity 6.7 cm/s Mitral E to LV E' Lateral Ratio 11.0 LV E' Septal Velocity 6.0 cm/s Mitral E to LV E' Septal Ratio 12.3 TR Peak Velocity 227.0 cm/s TR Peak Gradient 20.6 mmHg FINDINGS LEFT VENTRICLE The left ventricular systolic function is normal with an estimated ejection fraction in the range of 55-60%. Normal left ventricular size. RIGHT VENTRICLE Normal right ventricular size and systolic function. LEFT ATRIUM The left atrial size is normal. RIGHT ATRIUM The right atrial size is normal. ATRIAL SEPTUM Normal atrial septal thickness without atrial level shunting by limited color doppler interrogation. AORTA The aortic root and proximal ascending aorta are normal in size on limited imaging. MITRAL VALVE Mild mitral annular calcification. Mild mitral valve regurgitation. AORTIC VALVE Trileaflet aortic valve with mild sclerosis. No aortic valve regurgitation. TRICUSPID VALVE Structurally normal tricuspid valve. There is mild tricuspid valve regurgitation. PULMONARY VALVE The pulmonary valve is not well visualized. VESSELS The inferior vena cava is normal in size. PERICARDIUM No pericardial effusion. Bong Mann MD (Electronically Signed) Final Date:31 July 2017 14:35
[2017-07-31] MEDS: ATORVASTATIN 80 MG TAB PO SCH (19:55)
[2017-07-31] MEDS: RIVAROXABAN 15 MG TAB PO SCH (19:56)
[2017-07-31] MEDS: ZOLPIDEM TARTRATE 10 MG TAB PO PRN (22:35)
[2017-08-01 04:25] VITALS: BP 142/67; PULSE 66; RESP 16; TEMP 97.7; O2SAT 93
[2017-08-01] MEDS: LEVOTHYROXINE SODIUM 125 MCG TAB PO SCH (05:54)
[2017-08-01 08:00] VITALS: BP_SYST 137; BP_SYST 152; BP_DIAS 69; BP_DIAS 77; PULSE 78; RESP 17; TEMP 97.6; O2SAT 94
[2017-08-01] MEDS: INSULIN ASPART SUPPLEMENTAL SCALE SQ SCH ×2 (08:00→12:00)
[2017-08-01] MEDS: DILTIAZEM-CD 300 MG CAP ER PO SCH (08:20)
[2017-08-01] MEDS: SERTRALINE HCL 50 MG TAB PO SCH (08:20)
[2017-08-01] MEDS: FAMOTIDINE 20 MG TAB PO SCH (08:21)
[2017-08-01] MEDS: POTASSIUM CHLORIDE 20 MEQ CONTROLLED RELEASE TAB PO SCH (08:21)
[2017-08-01] MEDS: POTASSIUM PHOSPHATE MONOBASIC 500 MG TAB PO SCH (08:21)
[2017-08-01] MEDS: RIVAROXABAN 15 MG TAB PO SCH (08:21)
[2017-08-01] MEDS: CALCITRIOL 0.25 MCG CAP PO SCH (08:21)
[2017-08-01] MEDS: LISINOPRIL 20 MG TAB PO SCH (08:21)
[2017-08-01] MEDS: FUROSEMIDE 20 MG TAB PO SCH (08:22)
[2017-08-01] MEDS: SODIUM CHLORIDE 0.9% FLUSH 10 ML FLUSH IV FLUSH SCH (08:23)
[2017-08-01] MEDS: ALPRAZolam 1 MG TAB PO PRN (08:26)
[2017-08-01] MEDS ORDERED: XARE15TA PO ×2 (08:47→13:34)
[2017-08-01] MEDS ORDERED: XARE20TA PO (08:47)
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
[2017-08-01 10:32] VITALS: O2SAT 94
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
[2017-08-01 10:49] LABS: BASOPHIL # 0.1 TH/MM3 (0-0.2); BASOPHIL % 2.1 % (0.0-2.0); EOSINOPHIL # 0.2 TH/MM3 (0-0.4); EOSINOPHIL % 5.8 % (0.0-4.0); HEMATOCRIT 31.4 % (35.0-46.0); HEMO FLAGS DIFF FINAL; LYMPH % 34.2 % (9.0-44.0); LYMPHOCYTE # 1.4 TH/MM3 (1.0-4.8); MEAN CELL VOLUME 93.7 FL (80.0-100.0); NEUT % 47.9 % (16.0-70.0); PLATELET COUNT 351 TH/MM3 (150-450); RED BLOOD COUNT 3.35 MIL/MM3 (4.00-5.30); RED CELL DISTRIBUTION WIDTH 14.3 % (11.6-17.2); WHITE BLOOD COUNT 4.2 TH/MM3 (4.0-11.0)
[2017-08-01 10:58] LABS: APTT (PATIENT) 30.1 SEC (24.3-30.1)
[2017-08-01 11:34] LABS: BICARBONATE 25.9 MEQ/L (21.0-32.0); POTASSIUM 3.9 MEQ/L (3.5-5.1)
[2017-08-01 12:00] VITALS: BP 136/73; PULSE 78; RESP 17; TEMP 97.9; O2SAT 97
[2017-08-02] MEDS ORDERED: REMOVE OLD DURAGESIC (FENTANYL) PATCH T-DERMAL SCH (23:00)
== END 2017-08-01 14:24 | disposition home or self-care (01) | DRG 299 ==
LOC: NEPC 16:58 → NEDA 19:59 → N04B 21:55
PROVIDERS: ADMIT Hospitalist; ATTEND Hospitalist
DX: I82.402 Acute embolism and thrombosis of unspecified deep veins of left lower extremity (principal); I26.99 Other pulmonary embolism without acute cor pulmonale; I13.0 Hypertensive heart and chronic kidney disease with heart failure and stage 1 through stage 4 chronic kidney disease, or unspecified chronic kidney disease; I50.9 Heart failure, unspecified; E11.22 Type 2 diabetes mellitus with diabetic chronic kidney disease; N18.3 Chronic kidney disease, stage 3 (moderate); M06.9 Rheumatoid arthritis, unspecified; E89.0 Postprocedural hypothyroidism; M79.7 Fibromyalgia; K21.9 Gastro-esophageal reflux disease without esophagitis; M81.0 Age-related osteoporosis without current pathological fracture; M19.90 Unspecified osteoarthritis, unspecified site; G47.33 Obstructive sleep apnea (adult) (pediatric); E78.5 Hyperlipidemia, unspecified; F32.9 Major depressive disorder, single episode, unspecified; F41.9 Anxiety disorder, unspecified; Z86.718 Personal history of other venous thrombosis and embolism; E78.00 Pure hypercholesterolemia, unspecified; I08.3 Combined rheumatic disorders of mitral, aortic and tricuspid valves; Z79.4 Long term (current) use of insulin; Z85.038 Personal history of other malignant neoplasm of large intestine; Z86.711 Personal history of pulmonary embolism; Z87.891 Personal history of nicotine dependence; Z88.2 Allergy status to sulfonamides; Z88.5 Allergy status to narcotic agent; Z92.3 Personal history of irradiation
CPT/HCPCS: 80048; 80053; 82272; 82948; 85025; 85027; 85610; 85730; 93005; 93306; 96374; 96375; J1644; J1815